=== PATIENT | female | born 1980 | race Caucasian/White ===

== ENCOUNTER 2019-12-17 07:29 | Day surgery (SDC) | payer OTHER, SELFPAY ==
[2019-12-10 09:49] VITALS: BMI 29.9
--- NOTE | 2019-12-11 08:36 | HO.ANESPROP2 ---
Documented by User: Anastasiya Cerna 12/11/19 08:38 HPI - Anesthesia Eval Consult details Narrative: 39yo F for Colonoscopy PMFSH Past Medical History Medical History Asthma Back pain Irritable bowel syndrome Peptic ulcer PONV (postoperative nausea and vomiting) Surgical History Surgical History H/O: hemorrhoidectomy Hx of excision of mass [place] teeth removed Social History Social History Smoking Status: Never smoker Use of substances other than those prescribed or required for medical reasons: Yes Substance Use Frequency: Occasionally Advance Directives Information Provided: No Recently lost weight without trying: No Meds Allergies Allergy/AdvReac Type Severity Reaction Status Date / Time amoxicillin [Amoxicillin] Allergy Severe anaphylaxis Verified 12/10/19 09:59 Penicillins Allergy Severe anaphylaxis Verified 12/10/19 09:59 Sulfa (Sulfonamide Allergy Severe Hives Verified 12/10/19 09:59 Antibiotics) codeine [Codeine] Allergy Intermediate rash Verified 12/10/19 09:59 Home Medications Medication Instructions Recorded Confirmed Type dicyclomine 20 mg PO QID 12/10/19 12/10/19 History escitalopram oxalate [Lexapro] 5 mg PO DAILY 12/10/19 12/10/19 History methylcellulose (laxative) 1,000 mg PO BID 12/10/19 12/10/19 History [Citrucel] Exam Exam Date and Time: December 11, 2019 0837 Height,Weight and Vital Signs: Height 5 ft 5 in Weight 81.647 kg Pertinent Lab Results Pertinent Lab Results: Laboratory Tests 09/15/19 09/15/19 18:11 18:11 WBC 10.0 Hgb 12.2 Hct 37.3 Plt Count 203 Sodium 138 Potassium 3.7 Chloride 103 Bicarbonate 24 BUN 12 Creatinine 0.73 Est GFR (Non-Af Amer) > 60 Total Bilirubin 0.4 Direct Bilirubin < 0.2 AST 13 ALT 9 Alkaline Phosphatase 71 Assessment and Plan Assessment Anesthesia Assessment: Chart Reviewed Documented by User: Elliott Menon 12/17/19 08:43 PMFSH Past Medical History Medical History Asthma Back pain Irritable bowel syndrome Peptic ulcer PONV (postoperative nausea and vomiting) Surgical History Surgical History H/O: hemorrhoidectomy Hx of excision of mass [place] teeth removed Social History Social History Smoking Status: Never smoker Use of substances other than those prescribed or required for medical reasons: Yes Substance Use Frequency: Occasionally Advance Directives Information Provided: No Recently lost weight without trying: No Meds Allergies Allergy/AdvReac Type Severity Reaction Status Date / Time amoxicillin [Amoxicillin] Allergy Severe anaphylaxis Verified 12/10/19 09:59 Penicillins Allergy Severe anaphylaxis Verified 12/10/19 09:59 Sulfa (Sulfonamide Allergy Severe Hives Verified 12/10/19 09:59 Antibiotics) codeine [Codeine] Allergy Intermediate rash Verified 12/10/19 09:59 Home Medications Medication Instructions Recorded Confirmed Type dicyclomine 20 mg PO QID 12/10/19 12/10/19 History escitalopram oxalate [Lexapro] 5 mg PO DAILY 12/10/19 12/10/19 History methylcellulose (laxative) 1,000 mg PO BID 12/10/19 12/10/19 History [Citrucel] Exam Airway Mallampati Class: II TM Dist: >3cm Neck ROM: Full Heart: [id number] Lungs: cta b/l Assessment and Plan Assessment Anesthesia Assessment: Anesthesia Plan Discussed, PAT Visit and Chart Reviewed Final Anesthetic Review NPO: Yes ASA Class: II Final Preanesthetic Review: No Changes in Pt Med Stat, Meds/Allgs Chart Reviewed, Consent Obtained/Reviewed and Anes Risks/Benef Reviewed Patient Risk: Low Procedure Risk: Low Anesthetic Plan Anesthetic Plan: MAC: Disposition: Standard PACU, Extended PACU, Inp. Admit - Standard Bed and Inp. Admit - ICU
[2019-12-17 08:50] VITALS: BP 121/66; PULSE 49; RESP 20; TEMP 36.6
[2019-12-17] MEDS: Lactated Ringers 1,000 ML 999 ML IVCONT (09:50)
--- NOTE | 2019-12-17 09:50 | MHC.SHP ---
Pre-Procedural Eval Section A The patient is an INPATIENT: No The History & Physical has been completed within 30 days and I have reviewed it.: No Section B Chief Complaint: Diarrhea, Mixed IBS Details of Present Illness: Diarrrhea, urgency--colon cancer screening Relevant Family History (Specify if Yes): No Relevant Social History: None Present Medications: see Short Stay Collaborative assessment Medical History: Significant History (Anxiety) History of Previous Operations: No relevant previous surgery Allergies: Allergies Allergy/AdvReac Type Severity Reaction Status Date / Time amoxicillin [Amoxicillin] Allergy Severe anaphylaxis Verified 12/10/19 09:59 Penicillins Allergy Severe anaphylaxis Verified 12/10/19 09:59 Sulfa (Sulfonamide Allergy Severe Hives Verified 12/10/19 09:59 Antibiotics) codeine [Codeine] Allergy Intermediate rash Verified 12/10/19 09:59 Review of Systems Sugical H&P ROS: Negative: Constitution, Cardiovascular and Respiratory (has asthma--under control) and Yes, Specify: Psychiatric (mood variability) and Gastrointestinal (diarrhea) Exam Surgical H&P Exam: Normal: Heart, Normal: Lungs, Normal: Extremities, Normal: Abdomen and Normal: Skin and Not Evaluated: HEENT Plan Diagnosis/Plan: Unchanged Patient has been examined and remains a candidate for the planned procedure--YES
--- NOTE | 2019-12-17 10:23 | PM.PROC ---
Brief Operative Note Date of procedure: 12/17/19 Pre-op diagnosis: Diarrhea, urgency; Colon cancer screening Post-op diagnosis: other (Normal Exam, 1+ Internal hemorrhoid in 1 quadrant) Procedure: COLONSCOPY WITH MULTIPLE BIOPSIES EXAM TO THE TERMINAL ILEUM Anesthesia: MAC Surgeon: Inna Harding Estimated blood loss (mL): 5 Pathology: other (TI; RIGHT COLON, LEFT COLON, RECTOSIGMOID) Condition: stable Disposition: PACU
[2019-12-17 10:24] VITALS: BP 92/51; PULSE 49; RESP 12; TEMP 36.4; O2SAT 98
[2019-12-17 10:39] VITALS: BP 117/67; PULSE 47; RESP 20; TEMP 36.7; O2SAT 99
--- NOTE | 2019-12-19 08:28 | OP_ITS ---
SURGEON: Inna Harding MD PROCEDURE PERFORMED: Colonoscopy with multiple biopsies. ESTIMATED BLOOD LOSS: Minimal. COMPLICATIONS: No complications. ANESTHESIA: Monitored. ANESTHESIOLOGIST: Demetra Pimentel CRNA ASSISTANTS: No hotel assistant general manager. SPECIMENS: Removed, terminal ileal biopsy, right colon, left colon, rectosigmoid biopsies. PREOPERATIVE DIAGNOSES: Diarrhea/urgency, screening colonoscopy. POSTOPERATIVE DIAGNOSES: 1. 1+ internal hemorrhoids, mid quadrant between 2:00 and 3:00 p.m. using clock radius. 2. History of urgency/diarrhea. CNA CAREGIVER: Dr. Harding. FINDINGS: Digital rectal exam revealed sphincter tone to be adequate. Video colonoscope was introduced without difficulty. It was navigated through rectosigmoid, sigmoid, descending, transverse, ascending colon down into the cecum. Appendiceal orifice was seen. Ileocecal valve was seen. I was actually able to intubate the distal ileum by 6-8 cm. Normal villous appearance. Terminal ileal biopsies were obtained. The prep was good to excellent throughout. Due to the questionable history of diarrhea/urgency, additional biopsies were obtained in the right colon, left colon, rectosigmoid. Slow rotational views on withdrawal of the scope. No mucosal lesions were appreciated. Anorectal verge was clear. There was 1 quadrant using the clock face dial as a guide in the 2 to the 3 o'clock position of internal hemorrhoid. No excoriation. CURRENT PLAN: Repeat asymptomatic screening in this patient should be done considered in 5 years. She will be seen back in our office to manage her urgency/diarrhea, which may indeed be IBS-diarrhea. GRAFT OR IMPLANTS: No grafts or implants. CONDITION: Postprocedure, stable. Inna Harding MD MEN/MODL / [id number] DANG
== END 2019-12-17 11:27 | disposition home or self-care (01) ==
PROVIDERS: PCP Internal Medicine; Visit Provider Internal Medicine Gastroenterology
PROC: 0DJD8ZZ Inspection of Lower Intestinal Tract, Via Natural or Artificial Opening Endoscopic (ICD-10-PCS; CPT 45378; principal; 2019-12-17 09:10)
DX: Z12.11 Encounter for screening for malignant neoplasm of colon (principal); K58.2 Mixed irritable bowel syndrome; R15.2 Fecal urgency; K64.8 Other hemorrhoids; Z87.11 Personal history of peptic ulcer disease; J45.909 Unspecified asthma, uncomplicated; Z79.899 Other long term (current) drug therapy; Z88.0 Allergy status to penicillin; Z88.1 Allergy status to other antibiotic agents; Z88.2 Allergy status to sulfonamides; Z88.8 Allergy status to other drugs, medicaments and biological substances
CPT/HCPCS: 45380; 88305

== ENCOUNTER → 2019-12-26 16:00 | Outpatient (BNVA) | payer OTHER, SELFPAY | PROVIDERS: PCP Internal Medicine; Visit Provider Anesthesiology | DX: Z76.89 Persons encountering health services in other specified circumstances (principal) ==

== ENCOUNTER → 2020-01-13 09:50 | Outpatient (BNVA) | payer OTHER, SELFPAY | PROVIDERS: PCP Internal Medicine; Referring Provider Internal Medicine; Visit Provider Internal Medicine Gastroenterology | DX: Z76.89 Persons encountering health services in other specified circumstances (principal) ==

== ENCOUNTER → 2020-01-27 13:50 | Outpatient (BNVA) | payer OTHER, SELFPAY | PROVIDERS: PCP Internal Medicine; Visit Provider Surgery | DX: K64.4 Residual hemorrhoidal skin tags (principal); K58.2 Mixed irritable bowel syndrome | CPT/HCPCS: 46600 ==

== ENCOUNTER → 2020-03-30 08:43 | Outpatient (BNVA) | payer OTHER, SELFPAY | PROVIDERS: PCP Internal Medicine; Visit Provider Internal Medicine Gastroenterology ==

== ENCOUNTER 2020-04-22 17:06 | Emergency (ER) | payer OTHER, SELFPAY ==
--- NOTE | ~2020-04-22 | US_ITS ---
EXAMINATION: ULTRASOUND PELVIC COMPLETE WITH DOPPLER CLINICAL INFORMATION: Left pelvic pain, ovarian cyst seen on CT scan. COMPARISON: CT scan of the abdomen and pelvis dated 04/23/2020. TECHNIQUE: Multiple 2-D grayscale and Doppler transabdominal and transvaginal pelvic ultrasound images were obtained. FINDINGS: Uterus: Anteverted/anteflexed, 7.7 x 4.4 x 4.5 cm. Myometrial echotexture is homogeneous except for a heterogeneous echogenic intramural focus in the right fundus measuring 0.9 x 0.9 x 0.7 cm. Color Doppler showed no abnormal vascular flow. Endometrial stripe measures up to 0.9 cm without focal abnormality. Right ovary: 2.0 x 1.8 x 1.4 cm with a volume of 2.6 cm. Left ovary: 3.3 x 2.7 x 2.0 cm with a volume of 9.3 cm. A cyst with peripheral vascularity measures 2.2 x 1.4 x 1.5 cm. Mild adjacent adnexal fluid is seen. Urinary bladder: Minimally distended without focal abnormality. US/US pelvic complete IMPRESSION: 1. Left ovarian cyst demonstrates features most consistent with a physiologic/corpus luteum cyst. Mild adjacent left adnexal fluid is likely associated with this finding a physiologic as well. No significant right ovarian abnormality. 2. Echogenic intramural focus in the right fundus is nonspecific, but could represent a small fibroid. No other significant myometrial/endometrial abnormality is seen. This could be monitored for change with a repeat transvaginal pelvic ultrasound in 3-6 months.
--- NOTE | ~2020-04-22 | US_ITS ---
EXAMINATION: ULTRASOUND PELVIC COMPLETE WITH DOPPLER CLINICAL INFORMATION: Left pelvic pain, ovarian cyst seen on CT scan. COMPARISON: CT scan of the abdomen and pelvis dated 04/23/2020. TECHNIQUE: Multiple 2-D grayscale and Doppler transabdominal and transvaginal pelvic ultrasound images were obtained. FINDINGS: Uterus: Anteverted/anteflexed, 7.7 x 4.4 x 4.5 cm. Myometrial echotexture is homogeneous except for a heterogeneous echogenic intramural focus in the right fundus measuring 0.9 x 0.9 x 0.7 cm. Color Doppler showed no abnormal vascular flow. Endometrial stripe measures up to 0.9 cm without focal abnormality. Right ovary: 2.0 x 1.8 x 1.4 cm with a volume of 2.6 cm. Left ovary: 3.3 x 2.7 x 2.0 cm with a volume of 9.3 cm. A cyst with peripheral vascularity measures 2.2 x 1.4 x 1.5 cm. Mild adjacent adnexal fluid is seen. Urinary bladder: Minimally distended without focal abnormality. US/US transvaginal IMPRESSION: 1. Left ovarian cyst demonstrates features most consistent with a physiologic/corpus luteum cyst. Mild adjacent left adnexal fluid is likely associated with this finding a physiologic as well. No significant right ovarian abnormality. 2. Echogenic intramural focus in the right fundus is nonspecific, but could represent a small fibroid. No other significant myometrial/endometrial abnormality is seen. This could be monitored for change with a repeat transvaginal pelvic ultrasound in 3-6 months.
--- NOTE | ~2020-04-22 | CT_ITS ---
EXAMINATION: CT ABDOMEN AND PELVIS WITH CONTRAST CLINICAL INFORMATION: Pain. Constipation. Rule out diverticulitis. COMPARISON: 08/22/2019 TECHNIQUE: Multidetector volumetric images were obtained from the superior aspect of the liver through the pubic symphysis following administration 85 mL of Omnipaque 350 intravenous contrast. Sagittal and coronal reformatted images were obtained on the technologist's workstation. Oral contrast: No This CT examination was performed using dose optimization techniques as appropriate, variously including the following: *Automated exposure control *Adjustment of mA and/or kV according to patient size (this includes techniques or standardized protocols for targeted exams where dose is matched to indication/reason for exam; i.e. extremities or head) *Use of iterative reconstruction technique DLP: 718 mGy-cm FINDINGS: LUNG BASES: The visualized lung bases are unremarkable. LIVER, GALLBLADDER, AND BILIARY TREE: The liver is normal in size, shape, and attenuation. No focal hepatic lesion or biliary ductal dilatation is present. The gallbladder is unremarkable with no evidence of radiopaque gallstones, gallbladder wall thickening, or obvious pericholecystic inflammatory changes. PANCREAS: Unremarkable. SPLEEN: Normal size spleen. There is a 3.7 cm cyst at the dome of the spleen. ADRENAL GLANDS: Unremarkable. KIDNEYS AND URETERS: The kidneys are normal in size, shape, and attenuation. No hydronephrosis, hydroureter, or calculi seen. No perinephric stranding. BLADDER: Unremarkable. GASTROINTESTINAL TRACT: The stomach is unremarkable. Normal caliber small bowel. No obstruction. Normal appendix. No colonic wall thickening or inflammatory changes. No significant diverticulosis. No free air. Small amount of pelvic free fluid. ABDOMINAL WALL: No significant hernia is appreciated. LYMPH NODES: Normal. VASCULAR: Unremarkable. PELVIC VISCERA: Anteverted uterus. Peripherally enhancing left ovarian follicle measuring 2.4 cm. Small amount of adjacent free fluid. OSSEOUS STRUCTURES: No acute or suspicious osseous abnormality. Mild degenerative changes of the spine. CT/CT abdomen pelvis w con IMPRESSION: Small amount of pelvic free fluid adjacent to a peripherally enhancing left ovarian follicle. This could represent a hemorrhagic cyst. No significant colonic diverticulosis.
--- NOTE | ~2020-04-22 | US_ITS ---
EXAMINATION: ULTRASOUND PELVIC COMPLETE WITH DOPPLER CLINICAL INFORMATION: Left pelvic pain, ovarian cyst seen on CT scan. COMPARISON: CT scan of the abdomen and pelvis dated 04/23/2020. TECHNIQUE: Multiple 2-D grayscale and Doppler transabdominal and transvaginal pelvic ultrasound images were obtained. FINDINGS: Uterus: Anteverted/anteflexed, 7.7 x 4.4 x 4.5 cm. Myometrial echotexture is homogeneous except for a heterogeneous echogenic intramural focus in the right fundus measuring 0.9 x 0.9 x 0.7 cm. Color Doppler showed no abnormal vascular flow. Endometrial stripe measures up to 0.9 cm without focal abnormality. Right ovary: 2.0 x 1.8 x 1.4 cm with a volume of 2.6 cm. Left ovary: 3.3 x 2.7 x 2.0 cm with a volume of 9.3 cm. A cyst with peripheral vascularity measures 2.2 x 1.4 x 1.5 cm. Mild adjacent adnexal fluid is seen. Urinary bladder: Minimally distended without focal abnormality. US/US pelvic ovarian doppler IMPRESSION: 1. Left ovarian cyst demonstrates features most consistent with a physiologic/corpus luteum cyst. Mild adjacent left adnexal fluid is likely associated with this finding a physiologic as well. No significant right ovarian abnormality. 2. Echogenic intramural focus in the right fundus is nonspecific, but could represent a small fibroid. No other significant myometrial/endometrial abnormality is seen. This could be monitored for change with a repeat transvaginal pelvic ultrasound in 3-6 months.
[2020-04-22 17:36] VITALS: BP 151/85; PULSE 69; RESP 22; TEMP 37.1; O2SAT 98
[2020-04-22 22:07] VITALS: BP 139/95; PULSE 74; RESP 18; TEMP 36.7; O2SAT 98; BMI 30.7
[2020-04-23] VITALS (8 sets, daily range): BP systolic 108–137; BP diastolic 61–77; PULSE 54–72; RESP 14–20; TEMP 36.5; O2SAT 98–100
[2020-04-23 00:31] LABS: MANUAL DIFF FLAG NO
[2020-04-23 00:32] LABS: Basophils Percent Auto 0.2 % (0-2); Eosinophils Absolute Auto 0.1 X10*3/uL (0.0-0.4); Eosinophils Percent Auto 0.4 % (0-4); Hematocrit 39.1 % (37-47); Hemoglobin 13.5 g/dl (12.0-16.0); Imm Gran Abs Auto 0.06 X10*3/uL (0.00-0.03); Imm Gran Pct Auto 0.3 % (0.0-0.4); Lymphocytes Absolute Auto 3.8 X10*3/uL (1.2-4.9); Lymphocytes Percent Auto 19.6 % (20-40); Mean Corpuscular HGB Conc 34.5 g/dl (31.0-35.0); Mean Corpuscular Volume 95.6 fL (80-98); Mean Platelet Volume 9.6 fL (9.4-12.3); Monocytes Absolute Auto 0.9 X10*3/uL (0.1-1.2); Monocytes Percent Auto 4.7 % (2-11); Neutrophils Absolute Auto 14.5 X10*3/uL (2.0-8.3); Neutrophils Percent Auto 74.8 % (45-73); Platelet Count 226 X10*3/uL (160-400); Red Blood Count 4.09 X10*6/uL (4.20-5.50); Red Cell Distribution Width 12.6 % (11.0-16.0); White Blood Count 19.4 X10*3/uL (4.8-10.8)
[2020-04-23 01:00] LABS: Alanine Aminotransferase 12 U/L (0-31); Albumin Level 4.6 g/dL (3.5-5.0); Alkaline Phosphatase 72 U/L (39-117); Anion Gap 16 (12-20); Aspartate Amino Transferase 17 U/L (5-31); Bilirubin Total 0.6 mg/dL (0.0-1.0); Blood Urea Nitrogen 13 mg/dL (9-16); Calcium 8.9 mg/dL (8.4-10.2); Carbon Dioxide 18 mmol/L (22-29); Chloride 107 mmol/L (96-108); Creatinine Clr Calc Pharmacy 114.8; Estimated Glomerular Filt Rate > 60; Glucose Random 87 mg/dL (60-115); Potassium 3.8 mmol/L (3.3-5.1); Sodium 137 mmol/L (135-145); Total Protein 7.1 g/dL (6.5-8.0)
[2020-04-23 03:09] LABS: Appearance Urine CLEAR; Color Urine YELLOW; Glucose Urine UA NEG (NEG); Leukocyte Esterase Urine NEG (NEG); Nitrite Urine NEG (NEG); PH 5.5 (5.0-8.0); UACC Culture Trigger NO; Urine Blood NEG (NEG); Urine Ketones 40 MG/DL (NEG); Urine Protein NEG (NEG-TRACE)
--- NOTE | 2020-04-23 04:38 | PC.NURSE ---
MD REQUESTED FEMALE BENEFITS PROCESSOR FOR RECTAL EXAM. PERFORMED OCCULT BLOOD STOOL SAMPLE TEST AT BEDSIDE. PT AMBULATORY TO BATHROOM WITH STEADY GAIT FOLLOWING.
--- NOTE | 2020-04-23 04:41 | ED_ITS ---
HPI - General Adult General Chief complaint: Abdominal Pain Stated complaint: ABD PAIN, CONSTIPATION Time Seen by Provider: 04/23/20 04:09 Source: patient Mode of arrival: ambulatory Limitations: no limitations History of Present Illness HPI narrative: 39-year-old female who presents emergency department for evaluat ion of left upper quadrant pain which began yesterday. The patient states that she was at work when she developed abdominal pain at around 1:00 p.m.. She states the pain came on gradually and got progressively worse to the point where she had to leave work at 2:30 p.m.. She points to her left upper quadrant when asked to localize the pain. She describes as an intermittent cramping pain with which varies in intensity from 7/10 to 9/10. At the time of evaluation the pain was 7/10. She had associated nausea with no vomiting until she came to the emergency department and she vomited multiple times. She denied fever or chills. The patient states that she had a hemorrhoidectomy in August of 2019 and since that time she had constant diarrhea. She was diagnosed with IBS and started on dicyclomine with no relief of her diarrhea. Her doctor started her on Lotronex recently and she states that her diarrhea improved and she now is constipated. She states that her last bowel movement was 6 days prior. Related Data Home Medications Medication Instructions Recorded Confirmed methylcellulose (laxative) 1,000 mg PO BID 12/10/19 03/30/20 [Citrucel] Previous Rx's Medication Instructions Recorded dicyclomine 20 mg tablet 20 mg PO QID 30 Days #120 tab 01/13/20 escitalopram oxalate 5 mg tablet 5 mg PO DAILY #30 tab 02/03/20 ibuprofen 800 mg tablet 800 mg PO Q8H PRN 30 Days #90 tab 03/04/20 alosetron 0.5 mg tablet 0.5 mg PO BID 30 Days #60 tab 03/30/20 morphine 15 mg PO Q4-6H PRN #14 tab 04/23/20 ondansetron 4 mg PO Q6-8H PRN #14 tab 04/23/20 Allergies Allergy/AdvReac Type Severity Reaction Status Date / Time amoxicillin [Amoxicillin] Allergy Severe anaphylaxis Verified 03/04/20 17:44 Penicillins Allergy Severe anaphylaxis Verified 03/04/20 17:44 Sulfa (Sulfonamide Allergy Severe Hives Verified 03/04/20 17:44 Antibiotics) codeine [Codeine] Allergy Intermediate rash Verified 03/04/20 17:44 Review of Systems Review of Systems: Yes all other systems are reviewed and are negative Neurologic: Reports Abnormal speech present [facility] Past Medical History [facility] Narrative: The patient denies tobacco and alcohol use. She states that she does smoke marijuana. Medical History Asthma Back pain Coccydynia COVID-19 (~03/23/20) External hemorrhoids with complication Irritable bowel syndrome Irritable bowel syndrome with diarrhea Obese Peptic ulcer PONV (postoperative nausea and vomiting) Traumatic coccydynia Surgical History H/O: hemorrhoidectomy History of colonoscopy Hx of excision of mass [place] teeth removed Family History Family History Father Alive and well Mother Family history of high blood pressure Social History Social History Alcohol intake: former Smoking Status: Never smoker Use of substances other than those prescribed or required for medical reasons: No Substance Use Type: Marijuana Advance Directives: No Physical Exam Vital Signs: Vital Signs: Last Vital Signs Temp 97.7 F 04/23/20 00:18 Pulse 58 04/23/20 06:08 Resp 16 04/23/20 06:08 BP 108/63 04/23/20 06:08 Pulse Ox 98 04/23/20 06:08 Body Mass Index 30.7 Const: General: other (Awake, alert, female, very pleasant and cooperative, no distress ) Orientation/consciousness: oriented to person and oriented to place Limitations: no limitations HENMT: Head: Yes normal to inspection, Yes normocephalic and Yes atraumatic Ears: external ears normal General nose exam: Normal external nose present Face and sinus: Yes normal facial exam Mouth: Normal oral and palatal mucosa present Throat: Yes posterior oropharynx normal Eyes: Periorbital: periorbital findings normal Eyelids: Yes eyelids normal Conjunctivae: conjunctivae normal Sclerae: sclerae normal Corneas: corneas normal Pupils: Equal, round and reactive pupils present Direct Ophthalmoscopy: normal light reflex Neck: Neck: Yes full ROM, Yes no lymphadenopathy, Yes no meningeal signs, Yes trachea midline and Yes supple Chest: Chest palpation & inspection: normal inspection of the chest and normal palpation of entire chest wall Resp: Effort & Inspection: normal respiratory effort and able to speak in complete sentences Auscultation: clear to auscultation bilaterally Cardio: Rate: regular rate Rhythm: regular rhythm Heart sounds: S1 normal heart sound present, S2 normal heart sound present and no murmurs GI: Inspection: Yes normal to inspection Palpation (GI): Soft to palpation, Tenderness to palpation present (GI) in the LUQ (Moderate), no guarding, not rigid and No hepatosplenomegaly present Rectal Exam - Female: visual inspection normal, normal sphincter tone, heme positive stool (Brown stool, Hemoccult positive) and other (Very tender with insertion of the digit, no impaction) : General: Yes no CVA tenderness Back/Spine/Pelvis: Back: no CVA tenderness Cervical Spine: normal cervical lordosis Thoracic/Lumbar Spine: thoracic and lumbar spine normal to inspection Skin: Lesions: no lesions Rashes: no rashes Wounds: no wounds Neuro: General: oriented to person, oriented to place and no meningeal signs Cranial nerves: Yes Equal, round and reactive pupils present Cognition (Neuro): normal cognition Speech: Abnormal speech present Motor exam (neuro): 5/5 motor strength present throughout Extrem: General: Yes normal to inspection and Yes full ROM Psych: Appearance: well kempt Mental Status: mental status grossly normal Speech and movement: Normal speech and movement present Affect: normal affect Attitude: cooperative Thought process: Normal thought process present Thought content: Normal thought content present Course Course Course Narrative: 39-year-old female with a history of IBS who normally has diarrhea, recently started on Lotronex and now has constipation x6 days. She presented with left upper quadrant pain which started yesterday afternoon and has been persistent. Examination did reveal left upper quadrant tenderness, pain on rectal exam with no impaction, stool which was Hemoccult positive. [place] [address] otherwise was unremarkable. I do not have a clear etiology for the patient's pain therefore I did order a CT scan of the abdomen pelvis with IV contrast. The patient was ordered to get morphine 4 mg IV for her pain, Zofran 4 mg IV for her nausea and vomiting and normal saline x1 L. 0731: Patient's laboratory evaluation did reveal an elevated white blood cell count of 19,400, urinalysis was negative. The patient did improvement with IV morphine but required a 2nd dose of morphine 4 mg IV. The patient's CT scan revealed possible left 2.4 cm hemorrhagic ovarian cyst. After getting this finding, I did order a Doppler ultrasound to rule out the possibility a torsion as the cause of her pain. I did sign this patient out to my colleague, Dr. Flynn at [facility]. If there is no torsion, the patient can be discharged home and I did prescribe morphine IR 15 mg every 4-6 hours as needed for pain and a Zofran ODT 4 mg every 8 hours as needed for nausea. Medical Decision Making Lab Data Result diagrams: 04/23/20 00:23 04/23/20 00:23 Labs: Lab Results 04/23/20 04/23/20 04/23/20 Range/Units 00:23 00:23 00:23 WBC 19.4 H (4.8-10.8) X10*3/uL RBC 4.09 L (4.20-5.50) X10*6/uL Hgb 13.5 (12.0-16.0) g/dl Hct 39.1 (37-47) % MCV 95.6 (80-98) fL MCH 33.0 (27.0-33.0) pg MCHC 34.5 (31.0-35.0) g/dl RDW 12.6 (11.0-16.0) % Plt Count 226 (160-400) X10*3/uL MPV 9.6 (9.4-12.3) fL Immature Gran % (Auto) 0.3 (0.0-0.4) % Neut % (Auto) 74.8 H (45-73) % Lymph % (Auto) 19.6 L (20-40) % Tillman % (Auto) 4.7 (2-11) % Eos % (Auto) 0.4 (0-4) % Baso % (Auto) 0.2 (0-2) % Lymph # (Auto) 3.8 (1.2-4.9) X10*3/uL Tillman # (Auto) 0.9 (0.1-1.2) X10*3/uL Eos # (Auto) 0.1 (0.0-0.4) X10*3/uL Baso # (Auto) 0.0 (0.0-0.2) X10*3/uL Abs Immat Gran (auto) 0.06 H (0.00-0.03) X10*3/uL Absolute Neuts (auto) 14.5 H (2.0-8.3) X10*3/uL Absolute Nucleated RBC 0.000 (0.0-0.012) X10*3/uL Nucleated RBC % (auto) 0.0 (0.0-0.2) /100WBC Hold Blue Top SEE NOTE Sodium 137 (135-145) mmol/L Potassium 3.8 (3.3-5.1) mmol/L Chloride 107 (96-108) mmol/L Carbon Dioxide 18 L (22-29) mmol/L Anion Gap 16 (12-20) BUN 13 (9-16) mg/dL Creatinine 0.69 (0.5-1.4) mg/dL Estim Creat Clear Calc 114.8 Estimated GFR > 60 Random Glucose 87 (60-115) mg/dL Calcium 8.9 (8.4-10.2) mg/dL Total Bilirubin 0.6 (0.0-1.0) mg/dL AST 17 (5-31) U/L ALT 12 (0-31) U/L Alkaline Phosphatase 72 (39-117) U/L Total Protein 7.1 (6.5-8.0) g/dL Albumin 4.6 (3.5-5.0) g/dL Lipase 14 (8-78) U/L Urine Color Urine Appearance Urine pH (5.0-8.0) Ur Specific Hulett (1.005-1.025) Urine Protein (NEG-TRACE) MG/DL Urine Glucose (UA) (NEG) MG/DL Urine Ketones (NEG) MG/DL Urine Blood (NEG) Urine Nitrite (NEG) Ur Leukocyte Esterase (NEG) 04/23/20 Range/Units 02:41 WBC (4.8-10.8) X10*3/uL RBC (4.20-5.50) X10*6/uL Hgb (12.0-16.0) g/dl Hct (37-47) % MCV (80-98) fL MCH (27.0-33.0) pg MCHC (31.0-35.0) g/dl RDW (11.0-16.0) % Plt Count (160-400) X10*3/uL MPV (9.4-12.3) fL Immature Gran % (Auto) (0.0-0.4) % Neut % (Auto) (45-73) % Lymph % (Auto) (20-40) % Tillman % (Auto) (2-11) % Eos % (Auto) (0-4) % Baso % (Auto) (0-2) % Lymph # (Auto) (1.2-4.9) X10*3/uL Tillman # (Auto) (0.1-1.2) X10*3/uL Eos # (Auto) (0.0-0.4) X10*3/uL Baso # (Auto) (0.0-0.2) X10*3/uL Abs Immat Gran (auto) (0.00-0.03) X10*3/uL Absolute Neuts (auto) (2.0-8.3) X10*3/uL Absolute Nucleated RBC (0.0-0.012) X10*3/uL Nucleated RBC % (auto) (0.0-0.2) /100WBC Hold Blue Top Sodium (135-145) mmol/L Potassium (3.3-5.1) mmol/L Chloride (96-108) mmol/L Carbon Dioxide (22-29) mmol/L Anion Gap (12-20) BUN (9-16) mg/dL Creatinine (0.5-1.4) mg/dL Estim Creat Clear Calc Estimated GFR Random Glucose (60-115) mg/dL Calcium (8.4-10.2) mg/dL Total Bilirubin (0.0-1.0) mg/dL AST (5-31) U/L ALT (0-31) U/L Alkaline Phosphatase (39-117) U/L Total Protein (6.5-8.0) g/dL Albumin (3.5-5.0) g/dL Lipase (8-78) U/L Urine Color YELLOW Urine Appearance CLEAR Urine pH 5.5 (5.0-8.0) Ur Specific Hulett 1.020 (1.005-1.025) Urine Protein NEG (NEG-TRACE) MG/DL Urine Glucose (UA) NEG (NEG) MG/DL Urine Ketones 40 (NEG) MG/DL Urine Blood NEG (NEG) Urine Nitrite NEG (NEG) Ur Leukocyte Esterase NEG (NEG) Discharge Plan Discharge Clinical Impression: Hemorrhagic cyst of left ovary Constipation Qualifiers: Constipation type: unspecified constipation type Qualified Code(s): K59.00 - Constipation, unspecified Nausea & vomiting Qualifiers: Vomiting type: unspecified Vomiting Intractability: non-intractable Qualified Code(s): R11.2 - Nausea with vomiting, unspecified Patient Disposition: Home, Self-Care Instructions: Ovarian Cyst (ED) Additional Instructions: Take Tylenol (acetaminophen) 500 mg pills, 2 pills every 4 to 6 hours as needed for pain. For pain not relieved by Tylenol, take morphine 15 mg pills, 1 pill every 4-6 hours as needed for pain. This medication will make you sleepy, do not drive or work while taking this medication. This medication can be addicting. If you are concerned about addiction you can ask for less pills from the pharmacist or not get the prescription filled. Take Zofran (ondansetron) ODT 4 mg, 1 pill dissolved in mouth every 8 hours as needed for nausea and vomiting. Follow-up with your doctor in 2 days. Please return to the emergency department if your symptoms get worse or if you develop any symptoms that are concerning to you. Prescriptions: New morphine 15 mg tablet 15 mg PO Q4-6H PRN (Reason: pain) Qty: 14 RF: 0 ondansetron 4 mg tablet,disintegrating 4 mg PO Q6-8H PRN (Reason: nausea and vomiting) Qty: 14 RF: 0 No Action escitalopram oxalate 5 mg tablet 5 mg PO DAILY Qty: 30 RF: 6 Citrucel 500 mg Tablet 1,000 mg PO BID RF: 0 ibuprofen 800 mg tablet 800 mg PO Q8H PRN (Reason: pain) 30 Days Qty: 90 RF: 1 dicyclomine 20 mg tablet 20 mg PO QID 30 Days Qty: 120 RF: 4 alosetron [Lotronex] 0.5 mg tablet 0.5 mg PO BID 30 Days Qty: 60 RF: 2
[2020-04-23] MEDS: Morphine Sulfate 4 MG/ML CARTRIDGE IVPUSH ×2 (04:50→07:31)
[2020-04-23] MEDS: 0.9 % Sodium Chloride 1,000 ML 999 ML IV (04:50)
[2020-04-23] MEDS: ondansetron HCL 4 MG/2 ML VIAL IVPUSH (04:50)
[2020-04-23 05:14] LABS: Lipase 14 U/L (8-78)
[2020-04-23] MEDS: iohexoL 350 MG/ML 100 ML INFUS..BTL 85 ML IV (05:26)
--- NOTE | 2020-04-23 07:33 | PC.NURSE ---
Plan for ultrasound r/o torsion and Morphine for pain management 07/13 at this time. Pt appears comfortable at this time.
[2020-04-23] MEDS: Morphine Sulfate Immed Release 15 MG TABLET PO (09:33)
== END 2020-04-23 10:10 | disposition home or self-care (01) ==
PROVIDERS: Internal Medicine; Emergency Provider Emergency Medicine Emergency Medical Services; PCP Internal Medicine
DX: N83.202 Unspecified ovarian cyst, left side (principal); K59.00 Constipation, unspecified; R11.2 Nausea with vomiting, unspecified; Z86.16 Personal history of COVID-19
CPT/HCPCS: 36415; 74177; 76830; 76856; 80053; 81003; 83690; 85025; 93975; 96361; 96374; 96375; 96376; 99284; 99285; J2270; J2405; Q9967

== ENCOUNTER → 2020-04-27 14:41 | Outpatient (BNVA) | payer OTHER, SELFPAY | PROVIDERS: PCP Internal Medicine; Visit Provider Internal Medicine Gastroenterology ==

== ENCOUNTER 2020-05-04 08:19 | Outpatient (REF) | payer OTHER, SELFPAY ==
--- NOTE | ~2020-05-04 | MM_ITS ---
EXAMINATION: MM SCREENING DIGITAL BREAST TOMOSYNTHESIS, BILATERAL CLINICAL INFORMATION: Screening. Asymptomatic. The lifetime risk of breast cancer based on the Tyrer-Cuzick Model is 13%. COMPARISON: Mammography: 04/29/2019 TECHNIQUE: Digital breast tomosynthesis is performed in both the craniocaudal and mediolateral oblique views along with computer-aided detection (CAD). Synthesized 2D images are generated from the tomosynthesis. FINDINGS: There are scattered areas of fibroglandular density (ACR BI-RADS breast composition Category b). There are no significant masses, abnormal calcifications, or other abnormalities. Breast tissue composition borders on predominantly fatty. Background stromal markings are stable. No significant changes. MM/MM tomosynthesis screening BI IMPRESSION: No mammographic evidence of malignancy. ASSESSMENT: BI-RADS 1: Negative RECOMMENDATION: Routine annual mammography screening. This patient's information was entered into a reminder system with a target due date for their next mammogram.
[2020-05-04 10:23] LABS: Alanine Aminotransferase 12 U/L (0-31); Albumin Level 4.5 g/dL (3.5-5.0); Alkaline Phosphatase 76 U/L (39-117); Anion Gap 11 (12-20); Aspartate Amino Transferase 15 U/L (5-31); Bilirubin Total 0.2 mg/dL (0.0-1.0); Blood Urea Nitrogen 15 mg/dL (9-16); Calcium 8.7 mg/dL (8.4-10.2); Carbon Dioxide 27 mmol/L (22-29); Chloride 105 mmol/L (96-108); Cholesterol 203 mg/dL; Estimated Glomerular Filt Rate > 60; Glucose Fasting 99 mg/dL (60-99); HDL Cholesterol 64 mg/dL; LDL Cholesterol Calculated 130 mg/dl; Potassium 4.2 mmol/L (3.3-5.1); Sodium 139 mmol/L (135-145); Triglycerides 46 mg/dL
== END 2020-05-04 08:20 | disposition home or self-care (01) ==
LOC: HO.MAMMO 08:19
PROVIDERS: PCP Internal Medicine; Visit Provider Internal Medicine
DX: Z12.31 Encounter for screening mammogram for malignant neoplasm of breast (principal); E66.9 Obesity, unspecified
CPT/HCPCS: 36415; 77063; 77067; 80053; 80061

== ENCOUNTER 2020-05-05 14:15 | Outpatient (REF) | payer OTHER, SELFPAY ==
[2020-05-06 20:37] LABS: C. trachomatis RNA TMA NOT DETECTED (NOT DETECTED); N. gonorrhoeae RNA TMA NOT DETECTED (NOT DETECTED)
== END 2020-05-05 14:16 | disposition home or self-care (01) ==
LOC: HO.LAB 14:15
PROVIDERS: PCP Internal Medicine; Visit Provider Obstetrics & Gynecology
DX: N83.292 Other ovarian cyst, left side (principal); Z32.02 Encounter for pregnancy test, result negative
CPT/HCPCS: 36415; 81025; 87491; 87591

== ENCOUNTER 2020-08-05 15:56 | Outpatient (REF) | payer OTHER, SELFPAY ==
--- NOTE | ~2020-08-05 | US_ITS ---
EXAMINATION: US PELVIS COMPLETE US PELVIS TRANSVAGINAL CLINICAL INFORMATION: Follow up cyst. LMP 07/22/2020. COMPARISON: Multiple priors, most recent pelvic ultrasound dated 04/23/2020. TECHNIQUE: Transabdominal and transvaginal imaging was performed. FINDINGS: The uterus is of normal size and echogenicity measuring 8.9 x 3.2 x 4.3 cm. Myometrial cysts are noted measuring 0.8 and 0.4 cm, new when compared to the prior examination. The previously seen possible fibroid is not seen on the current examination. A regular homogeneous endometrium is identified measuring 0.9 cm. There are nabothian cysts. The right ovary measures 2.6 x 2.5 x 1.9 cm for a volume of 6.5 mm. Multiple probable right-sided ovarian follicles. The left ovary measures 2.2 x 1.6 x 1.3 cm for a volume of 2.4 cm. Previously seen complex left ovarian cyst is no longer identified. There is trace free fluid in the right adnexa. US/US pelvic complete IMPRESSION: 1. Previously seen myometrial heterogeneous focus no longer identified. Small myometrial cysts which appear simple and are new when compared to the prior examination. Unremarkable endometrium. 2. Resolution of the previously seen complex left ovarian cyst. Multiple right ovarian follicles. 3. Trace right adnexal free fluid.
--- NOTE | ~2020-08-05 | US_ITS ---
EXAMINATION: US PELVIS COMPLETE US PELVIS TRANSVAGINAL CLINICAL INFORMATION: Follow up cyst. LMP 07/22/2020. COMPARISON: Multiple priors, most recent pelvic ultrasound dated 04/23/2020. TECHNIQUE: Transabdominal and transvaginal imaging was performed. FINDINGS: The uterus is of normal size and echogenicity measuring 8.9 x 3.2 x 4.3 cm. Myometrial cysts are noted measuring 0.8 and 0.4 cm, new when compared to the prior examination. The previously seen possible fibroid is not seen on the current examination. A regular homogeneous endometrium is identified measuring 0.9 cm. There are nabothian cysts. The right ovary measures 2.6 x 2.5 x 1.9 cm for a volume of 6.5 mm. Multiple probable right-sided ovarian follicles. The left ovary measures 2.2 x 1.6 x 1.3 cm for a volume of 2.4 cm. Previously seen complex left ovarian cyst is no longer identified. There is trace free fluid in the right adnexa. US/US transvaginal IMPRESSION: 1. Previously seen myometrial heterogeneous focus no longer identified. Small myometrial cysts which appear simple and are new when compared to the prior examination. Unremarkable endometrium. 2. Resolution of the previously seen complex left ovarian cyst. Multiple right ovarian follicles. 3. Trace right adnexal free fluid.
== END 2020-08-05 15:57 | disposition home or self-care (01) ==
LOC: HO.US 15:56
PROVIDERS: PCP Internal Medicine; Visit Provider Obstetrics & Gynecology
DX: N83.292 Other ovarian cyst, left side (principal)
CPT/HCPCS: 76830; 76856

== ENCOUNTER → 2020-08-12 15:46 | Outpatient (BNVA) | payer OTHER, SELFPAY | PROVIDERS: Visit Provider Obstetrics & Gynecology | DX: N83.292 Other ovarian cyst, left side (principal) ==

== ENCOUNTER → 2020-08-27 15:08 | Outpatient (BNVA) | payer OTHER, SELFPAY | PROVIDERS: PCP Internal Medicine; Visit Provider Nurse Practitioner ==

== ENCOUNTER 2020-09-02 09:25 | Outpatient (REF) | payer OTHER, SELFPAY ==
[2020-09-02 10:40] LABS: Basophils Percent Auto 0.4 % (0-2); Eosinophils Absolute Auto 0.3 X10*3/uL (0.0-0.4); Eosinophils Percent Auto 3.9 % (0-4); Hematocrit 38.1 % (37-47); Hemoglobin 12.5 g/dl (12.0-16.0); Imm Gran Abs Auto 0.02 X10*3/uL (0.00-0.03); Imm Gran Pct Auto 0.3 % (0.0-0.4); Lymphocytes Absolute Auto 3.4 X10*3/uL (1.2-4.9); Lymphocytes Percent Auto 45.7 % (20-40); MANUAL DIFF FLAG NO; Mean Corpuscular HGB Conc 32.8 g/dl (31.0-35.0); Mean Corpuscular Hemoglobin 33.4 pg (27.0-33.0); Mean Corpuscular Volume 101.9 fL (80-98); Mean Platelet Volume 10.1 fL (9.4-12.3); Monocytes Absolute Auto 0.6 X10*3/uL (0.1-1.2); Monocytes Percent Auto 7.9 % (2-11); Neutrophils Absolute Auto 3.1 X10*3/uL (2.0-8.3); Neutrophils Percent Auto 41.8 % (45-73); Platelet Count 237 X10*3/uL (160-400); Red Blood Count 3.74 X10*6/uL (4.20-5.50); Red Cell Distribution Width 13.2 % (11.0-16.0); White Blood Count 7.5 X10*3/uL (4.8-10.8)
== END 2020-09-02 09:26 | disposition home or self-care (01) ==
LOC: HO.LAB 09:25
PROVIDERS: PCP Internal Medicine; Visit Provider Internal Medicine
DX: D64.9 Anemia, unspecified (principal)
CPT/HCPCS: 36415; 85025

== ENCOUNTER → 2020-10-06 14:44 | Outpatient (BNVA) | payer OTHER, SELFPAY | PROVIDERS: PCP Internal Medicine; Visit Provider Nurse Practitioner ==

== ENCOUNTER 2020-10-23 15:34 | Outpatient (REF) | payer OTHER, SELFPAY | END 2020-10-23 15:35 | disposition home or self-care (01) | LOC: HO.LAB 15:34 | PROVIDERS: PCP Internal Medicine; Visit Provider Internal Medicine | DX: Z20.822 Contact with and (suspected) exposure to COVID-19 (principal) | CPT/HCPCS: C9803; U0003; U0005 ==

== ENCOUNTER 2020-10-30 08:49 | Outpatient (REF) | payer OTHER, SELFPAY ==
[2020-10-30 10:23] LABS: Hematocrit 39.5 % (37-47); Hemoglobin 13.1 g/dl (12.0-16.0); Mean Corpuscular HGB Conc 33.2 g/dl (31.0-35.0); Mean Corpuscular Hemoglobin 32.8 pg (27.0-33.0); Mean Corpuscular Volume 98.8 fL (80-98); Mean Platelet Volume 10.1 fL (9.4-12.3); Platelet Count 245 X10*3/uL (160-400); Red Cell Distribution Width 12.8 % (11.0-16.0); White Blood Count 9.3 X10*3/uL (4.8-10.8)
[2020-10-30 11:07] LABS: TSH reflex Free T4 0.87 uIU/mL (0.32-4.0)
[2020-10-30 16:29] LABS: CT PCR NOT DETECTED (Not Detect.); NG PCR NOT DETECTED (Not Detect.)
[2020-10-31 11:02] LABS: BV Int Neg Control Negative (Negative); BV Int Pos Control Positive (Positive)
[2020-11-04 13:30] LABS: HPV mRNA E6/E7 rflx Not Detected (Not Detected)
== END 2020-10-30 08:50 | disposition home or self-care (01) ==
LOC: HO.LAB 08:49
PROVIDERS: PCP Internal Medicine; Visit Provider Advanced Practice Midwife
DX: Z01.419 Encounter for gynecological examination (general) (routine) without abnormal findings (principal); N92.0 Excessive and frequent menstruation with regular cycle; N94.6 Dysmenorrhea, unspecified; Z87.42 Personal history of other diseases of the female genital tract; Z20.2 Contact with and (suspected) exposure to infections with a predominantly sexual mode of transmission
CPT/HCPCS: 36415; 84443; 85027; 87480; 87491; 87510; 87591; 87624; 87660; 88142

== ENCOUNTER 2020-11-26 10:01 | Outpatient (REF) | payer OTHER, SELFPAY | END 2020-11-26 10:02 | disposition home or self-care (01) | LOC: HO.LAB 10:01 | PROVIDERS: PCP Internal Medicine; Visit Provider Advanced Practice Midwife | DX: Z30.09 Encounter for other general counseling and advice on contraception (principal); N93.9 Abnormal uterine and vaginal bleeding, unspecified | CPT/HCPCS: 58100; 81025; 88305 ==

== ENCOUNTER → 2020-12-08 11:25 | Outpatient (BNVA) | payer OTHER, SELFPAY | PROVIDERS: PCP Internal Medicine; Visit Provider Advanced Practice Midwife ==

== ENCOUNTER 2020-12-21 08:00 | Outpatient (RCR) | payer OTHER, SELFPAY ==
--- NOTE | 2020-08-28 10:34 | MHC.PT.EP ---
[facility] [place] [facility] [place] [facility] [place] [facility] [address] Joslyn Ontiveros [address] [phone] F: [phone] F: [phone] F: [phone] F: [phone] Physical Therapy Plan of Care Date of Evaluation: Date of Surgery: NA Diagnosis: Sacrococcygeal Disorder Assessment: Radha is a 39 y.o. female referred to PT for sacrococcygeal disorder . On PT evaluation she presents with 8/10 pain, TTP L5 through coccyx & B lower back, Decreased lumbar ROM, decreased TrA activation, decreased B hip strength, pelvis asymmetry, and gait deviations. Her symptoms began apparent following a fall down her stairs in 2011, and were exacerbated following a surgery in 2013 for mass removal from her coccyx. She also reports of having issues with bowel movements since the fall. 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 She is very motivated for PT. Frequency and Duration: The patient will be seen 2x week for 6 weeks Short Term Goals: 1. In 2 weeks patient will report 50% decreased pain to improve her ability for self care and dressing. 2. In 3 weeks patient will have improved lumbar ROM in all planes to improve her ability for bending over with cleaning and other IADLS. Nursing Home Goals: 1. In 5 weeks patient will improve B hip strength by 1 MMT grade to improve ability for running and social activities. 2. In 6 weeks patient will be independent with [facility] for symptom management following d/c. Treatment Plan: Modalities to reduce pain, spasms and effusion. Manual therapy to restore motion and function. Therapeutic exercise to improve strength and flexibility. Neuromuscular re-education for posture and balance. Therapeutic activities to return to functional activities of daily living. Electronically signed by: Renetta Torres PT DPT Please sign and return to therapist. Thank you for your referral.
--- NOTE | 2020-12-21 09:24 | MHC.PT.RE ---
[facility] [place] [facility] [place] [facility] [place] [facility] [address] Joslyn Ontiveros [address] [phone] F: [phone] F: [phone] F: [phone] F: [phone] Physical Therapy Re-evaluation Diagnosis: Sacrococcygeal Disorder Date of Surgery: NA Date of Evaluation: 08/28/20 Treatments to Date: 18 Cancellations to Date: No Shows to Date: Subjective: I am not getting the same pain relief with self mobilizations as compared to when you do it Pain Score: 1 Pain Location: B lower back, SI/Coccyx region Objective Measures: Pt had a right on left sacral torsion. pt had right anterior innominant Internal pelvic exam: strength 4/5, endurance 10 seconds, repeated endurance 2, quick contractions 6 POP: grade 1 cystocele, grade 1 rectocele that came to the opening of the introitus. internal rectal exam- painful palpation on right inferior border of the coccyx. pain with coccyx mobilization. external hemrrhoid palpable. Assessment: Pt had a right on left sacral torsion today. I attempted Muscle energy Techniques (MET) on the right side first and this did not improve alignment. I did MET to the left illeum (resisted flexion) and this helped the most. I did cupping simultaneously as doing coccyx and sacrotuberous mobilizations and this did not offer any more pain relief. pt reported it feels like your pulling a dent out of my body I did PA mobs on right sacral border. She also had a right posterior innominant. Overall, the pt feels a significant improvement with BM. Less straining reported with BM, which is important due to her current hemorrhoids. She has tried to do self mobs but this has been unsuccessful. She feels our mobilizations in the clinic are helping the most with pain relief and with improving BM. She is still being treated for pelvic instability which has shown improvement in activity tolerance. Pt would benefit from 1x/week x 10 more weeks. Short Term Goals: 1. In 2 weeks patient will report 50% decreased pain to improve her ability for self care. goal met. 2. In 3 weeks patient will have improved lumbar ROM in all planes to improve her ability for bending over with cleaning and other IADLS. goal met 3. Pt will be able to have regular BM without straining in 90% of the time. [facility] Goals: 1. In 5 weeks patient will improve B hip strength by 1 MMT grade to improve ability for running and social activities. ongoing. 2. In 6 weeks patient will be independent with [facility] for symptom management following d/c. ongoing 3. Pt to feel 75% less pain in her pelvis. ongoing Frequency and Duration: The patient will be seen 2x week for 6 weeks Treatment Plan: Therapeutic Exercise Dynamic Therapeutic Activities Neuromuscular Re-ed Manual Therapies Home Exercise Program Patient Education Pelvic Floor Therapy cupping, manual therapy, MET Reviewed/ Agreed with Student Documentation: Yes Therapist: Renetta Torres, PT DPT Electronically signed by: Yeny Prakash PT DPT Please sign and return to therapist. Thank you for your referral.
== END 2020-12-23 08:00 | disposition home or self-care (01) ==
LOC: HO.PT 08:00
PROVIDERS: PCP Internal Medicine; Visit Provider Internal Medicine
DX: M53.3 Sacrococcygeal disorders, not elsewhere classified (principal)
CPT/HCPCS: 97110; 97112; 97140; 97161; 97530

== ENCOUNTER → 2021-02-09 13:55 | Outpatient (BNVA) | payer OTHER, SELFPAY | PROVIDERS: PCP Internal Medicine; Visit Provider Advanced Practice Midwife | DX: Z30.430 Encounter for insertion of intrauterine contraceptive device (principal) | CPT/HCPCS: 81025; J7298 ==

== ENCOUNTER → 2021-04-01 14:17 | Outpatient (BNVA) | payer OTHER, SELFPAY | PROVIDERS: PCP Internal Medicine; Visit Provider Advanced Practice Midwife ==

== ENCOUNTER 2021-04-12 09:55 | Emergency (ER) | payer OTHER, SELFPAY ==
--- NOTE | ~2021-04-12 | XR_ITS ---
EXAMINATION: AP PELVIS AND RIGHT WRIST. CLINICAL INFORMATION: Fall with bilateral hip pain. COMPARISON: None TECHNIQUE: Pelvis one view. Right wrist 4 views. FINDINGS: AP pelvis: There is normal symmetry of bilateral hip joints and SI joints. No visible acute fracture, dislocation or lytic process seen. There is an IUD located within the pelvis. RIGHT WRIST: There is no visible acute fracture, dislocation or subluxation. The radial ulnar carpal, intracarpal and carpometacarpal joint space is maintained normal. No abnormal joint effusion seen. There is negative ulnar variance.. XR/XR pelvis 1-2V IMPRESSION: Unremarkable AP pelvis exam. Unremarkable right wrist exam.
--- NOTE | ~2021-04-12 | XR_ITS ---
EXAMINATION: AP PELVIS AND RIGHT WRIST. CLINICAL INFORMATION: Fall with bilateral hip pain. COMPARISON: None TECHNIQUE: Pelvis one view. Right wrist 4 views. FINDINGS: AP pelvis: There is normal symmetry of bilateral hip joints and SI joints. No visible acute fracture, dislocation or lytic process seen. There is an IUD located within the pelvis. RIGHT WRIST: There is no visible acute fracture, dislocation or subluxation. The radial ulnar carpal, intracarpal and carpometacarpal joint space is maintained normal. No abnormal joint effusion seen. There is negative ulnar variance.. XR/XR wrist RT 2V IMPRESSION: Unremarkable AP pelvis exam. Unremarkable right wrist exam.
[2021-04-12 09:59] VITALS: BP 130/80; PULSE 100; RESP 16; TEMP 36.6; O2SAT 97; BMI 31.6
--- NOTE | 2021-04-12 10:18 | ED_ITS ---
HPI - Fall General Chief Complaint: Fall Stated Complaint: fall - rt arm injury Time Seen by Provider: 04/12/21 10:04 Source: patient Mode of arrival: ambulatory Limitations: no limitations History of Present Illness HPI Narrative: Patient is a 40 year old female presenting to the emergency department today with right wrist pain and bilateral hip pain. Patient states that she slipped and fell on an outstretched hand, specifically her right hand. Patient states that both of her hips have been having pain since the incident as well. Patient denies hitting her head with the incident. Patient denies any loss of consciousness with the incident. Patient denies any dizziness, lightheadedness, abdominal pain, nausea, vomiting, fever, chills, blurry vision, double vision, loss of vision, chest pain, difficulty breathing, shortness of breath, back pain, night sweats, pain with urination, increased urinary frequency, increased urinary urgency, blood in her urine or stool, syncope or a near syncopal e pisode, bowel incontinence, bladder incontinence, bowel retention, bladder retention, or any other complaints at this time. MD complaint: fall Onset (ago): minute(s) Fall from: standing Fall witnessed: no Place fall occurred: home Loss of consciousness: none Prolonged down time: no Symptoms prior to fall: none Context: tripped/slipped Related Data Home Medications Medication Instructions Recorded Confirmed methylcellulose (laxative) 500 mg 1,000 mg PO TID tab 08/27/20 03/15/21 tablet (Citrucel) sulfur-witch trinity leaf 150 mg tab PO 11/26/20 03/15/21 tablet Previous Rx's Medication Instructions Recorded sennosides 8.6 mg capsule (senna) 17.2 mg PO BEDTIME 30 Days #60 cap 08/27/20 dicyclomine 20 mg tablet 20 mg PO QID #360 tab 01/15/21 escitalopram oxalate 10 mg tablet 10 mg PO DAILY 90 Days #90 tab 03/11/21 Allergies Allergy/AdvReac Type Severity Reaction Status Date / Time amoxicillin [Amoxicillin] Allergy Severe anaphylaxis Verified 04/01/21 14:28 Penicillins Allergy Severe anaphylaxis Verified 04/01/21 14:28 Sulfa (Sulfonamide Allergy Severe Hives Verified 04/01/21 14:28 Antibiotics) codeine [Codeine] Allergy Intermediate rash Verified 04/01/21 14:28 Review of Systems Constitutional: Constitutional: Reports no additional constitutional complaints, Denies chills, Denies fever(s) and Denies night sweats Eyes: Eyes: Reports no additional eye complaints, Denies blurry vision, Denies change in vision, Denies diplopia, Denies eye discharge, Denies loss of vision and Denies eye pain ENT: Denies dizziness Cardiovascular: Cardiovascular: Reports no additional cardiovascular complaints, Denies chest pain, Denies lightheadedness, Denies Loss of Consciousness and Denies dyspnea Respiratory: Respiratory: Reports no additional respiratory complaints and Denies dyspnea Gastrointestinal: Gastrointestinal: Reports no additional gastrointestinal complaints, Denies abdominal pain, Denies melena, Denies hematochezia, Denies change in bowel habits and Denies change in stool character Genitourinary: Genitourinary: Denies hematuria, Denies urinary frequency, Denies dysuria, Denies urinary incontinence, Denies urinary hesitancy and Denies urinary urgency Musculoskeletal: Musculoskeletal: Reports no additional musculoskeletal complaints, Denies numbness and Denies tingling Comments: right wirst pain, bilateral hip pain Neurologic: Denies dizziness, Denies loss of vision, Denies numbness and Denies tingling Psychiatric: Psychiatric: Reports no additional psychiatric complaints Endocrine: Endocrine: Reports no additional endocrine complaints Hematologic/Lymphatic: Hematologic/Lymphatic: Reports no additional hematologic/lymphatic complaints Allergic/Immunologic: Allergic/Immunologic: Reports no additional allergic/immunologic complaints [facility] Past Medical History Attestation statement: The following information was validated with the patient. Source: old records reviewed Medical History Asthma Back pain Coccydynia COVID-19 (~03/23/20) External hemorrhoids with complication Irritable bowel syndrome with diarrhea Obese Peptic ulcer Physical exam PONV (postoperative nausea and vomiting) Rash Traumatic coccydynia Surgical History H/O: hemorrhoidectomy History of colonoscopy Hx of excision of mass [place] teeth removed Family History Family History Father Alive and well Substance use disorder Mother Family history of high blood pressure History of hip replacement Brain aneurysm Social History Social History Household Members: Children and None Housing: House Alcohol intake: former Patient Tobacco Use Status: Never used Tobacco e-Cigarette/Vaping Use: Never Used Second Hand Smoke Exposure: No Substance Use Type: Marijuana service: No Current occupational status: employed Current occupational exposures/hazards: No Physical Exam Vital Signs: Vital Signs: Last Vital Signs Temp 97.9 F 04/12/21 09:59 Pulse 100 04/12/21 09:59 Resp 16 04/12/21 09:59 BP 130/80 04/12/21 09:59 Pulse Ox 97 04/12/21 09:59 BMI result Body Mass Index 31.6 Const: General: cooperative, no acute distress, alert and awake Nutritional Appearance: well nourished Orientation/consciousness: patient oriented x3 Limitations: no limitations HENMT: Head: Yes normal to inspection and Yes atraumatic Ears: hearing grossly normal bilaterally and external ears normal General nose exam: Normal external nose present, no nasal discharge noted and no epistaxis Face and sinus: Yes normal facial exam, No abrasion and No laceration Mouth: Normal oral and palatal mucosa present, no drooling and no muffled voice Eyes: General: appearance normal, both eyes and all related structures Periorbital: periorbital findings normal Eyelids: Yes eyelids normal Conjunctivae: conjunctivae normal Pupils: Equal, round and reactive pupils present EOM: EOMs intact bilaterally Neck: Neck: Yes normal visual inspection, Yes full ROM and Yes no lymphadenopathy Chest: Chest palpation & inspection: normal inspection of the chest Resp: Effort & Inspection: normal respiratory effort and able to speak in complete sentences GI: Inspection: Yes normal to inspection Neuro: General: patient oriented x3 and moves all extremities Cranial nerves: Yes Equal, round and reactive pupils present Cognition (Neuro): normal cognition Motor exam (neuro): 5/5 motor strength present throughout Sensory Exam: Normal double simultaneous stimulation for sensation Coordination: [id number] test normal Extrem: General: Yes normal to inspection, Yes full ROM and Yes capillary refill normal Psych: Appearance: grossly normal Mental Status: mental status grossly normal Affect: normal affect Attitude: cooperative Thought process: Normal thought process present Thought content: Normal thought content present Insight: Good insight present (Psych) MDM - Fall MDM Narrative Medical decision making narrative: Patient is a 40 year old female presenting to the emergency department today with right wrist pain and bilateral hip pain. Patient's physical exam was unremarkable. Patient's right wrist and bilateral hip x-ray showed no acute process. I explained my physical exam findings as well as all test results to the patient. I answered all questions asked by the patient. I stressed the importance of the patient following up with her primary care provider and an orthopedic provider. I stressed the importance of the patient returning to the emergency department immediately if her symptoms were to worsen or if she were to develop any dizziness, shortness of breath, difficulty breathing, chest pain, blurry vision, loss of vision, nausea, vomiting, abdominal pain, fever, chills, back pain, or any other complaints. Patient verbalized agreement and understanding with this treatment plan and discharge. Differential Diagnosis Differential diagnosis: Likely dislocation, fracture and compression fracture Medical Records Attestation: I reviewed the patient's medical records. Imaging Data Right wrist x-ray, bilateral hip x-ray: Attestation: I personally reviewed and interpreted this imaging study as follows: Radiologist's impression: EXAMINATION: AP PELVIS AND RIGHT WRIST. CLINICAL INFORMATION: Fall with bilateral hip pain.? COMPARISON: None? TECHNIQUE: Pelvis one view. Right wrist 4 views.? FINDINGS: AP pelvis: There is normal symmetry of bilateral hip joints and SI joints. No visible acute fracture, dislocation or lytic process seen. There is an IUD located within the pelvis. RIGHT WRIST: There is no visible acute fracture, dislocation or subluxation. The radial ulnar carpal, intracarpal and carpometacarpal joint space is maintained normal. No abnormal joint effusion seen. There is negative ulnar variance..? XR/XR wrist RT 2V IMPRESSION: Unremarkable AP pelvis exam. ? Unremarkable right wrist exam. Dictated By: Francesco Torrez MD Signed By: Electronically signed by Francesco Torrez MD 04/12/21 Discharge Plan Discharge Clinical Impression: Pain, wrist Patient Disposition: Home, Self-Care Additional Instructions: Call to schedule a follow up appointment with an Orthopedic provider. Follow up with your primary care provider. Return to the emergency department immediately if your symptoms worsen or if you develop any dizziness, shortness of breath, difficulty breathing, chest pain, blurry vision, loss of vision, nausea, vomiting, abdominal pain, fever, chills, back pain, or any other complaints. Prescriptions: No Action dicyclomine 20 mg tablet 20 mg PO QID Qty: 360 2RF escitalopram oxalate 10 mg tablet 10 mg PO DAILY 90 Days Qty: 90 1RF Citrucel 500 mg tablet 1,000 mg PO TID 0RF sulfur-witch trinity leaf 150 mg tablet PO 0RF senna 8.6 mg capsule 17.2 mg PO BEDTIME 30 Days Qty: 60 6RF Referrals: Cristi Watson MD [Physician] - 2 days Stand Alone Forms: Work/School Release Interventions: ED Discharge Assessment Last Done: 04/12/21 11:29 Discharge Date/Time: 04/12/21 11:30 Print Language: French
== END 2021-04-12 11:30 | disposition home or self-care (01) ==
PROVIDERS: Emergency Provider Emergency Medicine; PCP Internal Medicine
DX: M25.531 Pain in right wrist (principal); M25.552 Pain in left hip; M25.551 Pain in right hip
CPT/HCPCS: 72170; 73100; 99283

== ENCOUNTER → 2021-04-16 07:50 | Outpatient (BNVA) | payer OTHER, SELFPAY | PROVIDERS: PCP Internal Medicine; Referring Provider Internal Medicine; Visit Provider Nurse Practitioner | DX: M25.531 Pain in right wrist (principal); K58.2 Mixed irritable bowel syndrome; K64.4 Residual hemorrhoidal skin tags | CPT/HCPCS: 29085; 99203; 99213 ==

== ENCOUNTER 2021-04-19 00:26 | Emergency (ER) | payer OTHER, SELFPAY ==
[2021-04-19 01:05] VITALS: BP 119/62; PULSE 61; RESP 16; TEMP 36.5; O2SAT 98; BMI 31.6
== END 2021-04-19 03:27 | disposition left against medical advice (07) ==
PROVIDERS: Emergency Provider Emergency Medicine
DX: S09.90XA Unspecified injury of head, initial encounter (principal); W19.XXXA Unspecified fall, initial encounter; Y93.9 Activity, unspecified; Y92.9 Unspecified place or not applicable; Y99.9 Unspecified external cause status
CPT/HCPCS: 99281; 99282

== ENCOUNTER 2021-04-30 06:56 | Outpatient (REF) | payer OTHER, SELFPAY ==
--- NOTE | ~2021-04-30 | XR_ITS ---
EXAMINATION: RIGHT WRIST X-RAY CLINICAL INFORMATION: Pain COMPARISON: Previous x-ray 04/12/2021 TECHNIQUE: 4 views of the right wrist FINDINGS: Bone alignment is normal. No fracture or dislocation is seen. Joint spaces are normal. Soft tissues are normal. XR/XR wrist RT w scaphoid IMPRESSION: Normal right wrist.
[2021-04-30 09:57] LABS: MANUAL DIFF FLAG NO
[2021-04-30 10:36] LABS: Basophils Percent Auto 0.3 % (0-2); Eosinophils Absolute Auto 0.3 X10*3/uL (0.0-0.4); Eosinophils Percent Auto 3.4 % (0-4); Hematocrit 42.2 % (37.0-47.0); Hemoglobin 13.8 g/dl (12.0-16.0); Imm Gran Abs Auto 0.03 X10*3/uL (0.00-0.03); Imm Gran Pct Auto 0.3 % (0.0-0.4); Lymphocytes Absolute Auto 3.3 X10*3/uL (1.2-4.9); Lymphocytes Percent Auto 35.3 % (20-40); Mean Corpuscular HGB Conc 32.7 g/dl (31.0-35.0); Mean Corpuscular Hemoglobin 33.2 pg (27.0-33.0); Mean Corpuscular Volume 101.4 fL (80.0-98.0); Monocytes Absolute Auto 0.7 X10*3/uL (0.1-1.2); Monocytes Percent Auto 7.7 % (2-11); Platelet Count 273 X10*3/uL (160-400); Red Blood Count 4.16 X10*6/uL (4.20-5.50); Red Cell Distribution Width 13.5 % (11.0-16.0); White Blood Count 9.4 X10*3/uL (4.8-10.8)
[2021-04-30 11:36] LABS: Alanine Aminotransferase 7 U/L (0-31); Albumin Level 4.4 g/dL (3.5-5.0); Alkaline Phosphatase 71 U/L (39-117); Anion Gap 12 (12-20); Aspartate Amino Transferase 15 U/L (5-31); Bilirubin Total 0.5 mg/dL (0.0-1.0); Blood Urea Nitrogen 8 mg/dL (9-16); Calcium 9.1 mg/dL (8.4-10.2); Carbon Dioxide 27 mmol/L (22-29); Chloride 104 mmol/L (96-108); Cholesterol 177 mg/dL; Estimated Glomerular Filt Rate > 60; Glucose Fasting 81 mg/dL (60-99); HDL Cholesterol 56 mg/dL; LDL Cholesterol Calculated 107 mg/dl; Potassium 4.2 mmol/L (3.3-5.1); Sodium 139 mmol/L (135-145); Total Protein 7.1 g/dL (6.5-8.0); Triglycerides 71 mg/dL
== END 2021-04-30 06:57 | disposition home or self-care (01) ==
LOC: HO.HOSX 06:56
PROVIDERS: Absent Provider Internal Medicine; PCP Internal Medicine; Visit Provider Physician Assistant
DX: S62.001D Unspecified fracture of navicular [scaphoid] bone of right wrist, subsequent encounter for fracture with routine healing (principal); M53.3 Sacrococcygeal disorders, not elsewhere classified; E78.5 Hyperlipidemia, unspecified
CPT/HCPCS: 29085; 36415; 73110; 80053; 80061; 85025

== ENCOUNTER 2021-05-15 08:30 | Outpatient (REF) | payer OTHER, SELFPAY ==
--- NOTE | ~2021-05-15 | MM_ITS ---
EXAMINATION: MM SCREENING DIGITAL BREAST TOMOSYNTHESIS, BILATERAL CLINICAL INFORMATION: Screening. Asymptomatic. The lifetime risk of breast cancer based on the Tyrer-Cuzick Model is 12%. COMPARISON: Mammography: 05/04/2020, 04/29/2019 (baseline). TECHNIQUE: Digital breast tomosynthesis is performed in both the craniocaudal and mediolateral oblique views along with computer-aided detection (CAD). Synthesized 2D images are generated from the tomosynthesis. FINDINGS: There are scattered areas of fibroglandular density (ACR BI-RADS breast composition Category b). Breast tissue composition borders on predominantly fatty. Background stromal and fibroglandular densities are stable. There are no significant masses, abnormal calcifications, or other abnormalities. No significant changes. MM/MM tomosynthesis screening BI IMPRESSION: No mammographic evidence of malignancy. ASSESSMENT: BI-RADS 1: Negative RECOMMENDATION: Routine annual mammography screening. This patient's information was entered into a reminder system with a target due date for their next mammogram.
== END 2021-05-15 08:31 | disposition home or self-care (01) ==
LOC: HO.MAMMO 08:30
PROVIDERS: PCP Internal Medicine; Visit Provider Internal Medicine
DX: Z12.31 Encounter for screening mammogram for malignant neoplasm of breast (principal)
CPT/HCPCS: 77063; 77067

== ENCOUNTER 2021-05-19 17:53 | Outpatient (REF) | payer OTHER, SELFPAY ==
--- NOTE | ~2021-05-19 | MR_ITS ---
EXAMINATION: MR BRAIN WITHOUT CONTRAST CLINICAL INFORMATION: New daily persistent headaches. COMPARISON: Head CT from 03/02/2015. TECHNIQUE: Multiplanar, multisequence imaging of the brain was performed without contrast. FINDINGS: No diffusion abnormalities are identified to suggest an acute or subacute infarct. The ventricles are normal in size. No mass effect or midline shift is seen. No brain parenchymal signal abnormality is noted. No extra-axial fluid collections are seen. The brainstem and cerebellum are normal. The gradient refocused acquisition demonstrates no pathologic magnetic susceptibility artifact to indicate underlying acute or chronic blood products. The craniovertebral junction, marrow signal, and midline structures are normal. The major intracranial flow voids at the level of the atka of [place] are preserved. The dural venous sinus flow voids are maintained. The mastoid air cells and paranasal sinuses are well aerated. MR/MR head/brain wo con IMPRESSION: Normal MRI of the brain. No acute process.
== END 2021-05-19 17:54 | disposition home or self-care (01) ==
LOC: HO.MRI 17:53
PROVIDERS: Visit Provider Internal Medicine
DX: G44.52 New daily persistent headache (NDPH) (principal)
CPT/HCPCS: 70551

== ENCOUNTER 2021-05-28 08:03 | Outpatient (REF) | payer OTHER, SELFPAY ==
--- NOTE | ~2021-05-28 | XR_ITS ---
EXAMINATION: XR WRIST, RIGHT CLINICAL INFORMATION: Right hand pain. COMPARISON: Multiple priors, most recent right wrist radiographs dated 04/30/2021. TECHNIQUE: AP, oblique, lateral, and scaphoid views of the right wrist. FINDINGS: No acute fracture or dislocation. Normal carpal alignment. No joint space narrowing or marginal osteophytes. No osseous erosion. No abnormal soft tissue calcification. XR/XR wrist RT w scaphoid IMPRESSION: Unremarkable examination.
== END 2021-05-28 08:04 | disposition home or self-care (01) ==
LOC: HO.HOSX 08:03
PROVIDERS: Visit Provider Physician Assistant
DX: M25.531 Pain in right wrist (principal); M77.8 Other enthesopathies, not elsewhere classified; M79.641 Pain in right hand
CPT/HCPCS: 73110

== ENCOUNTER 2021-06-24 13:13 | Outpatient (REF) | payer OTHER, SELFPAY ==
--- NOTE | ~2021-06-24 | FL_ITS ---
PROCEDURE: XR INJECTION ARTHROGRAM WRIST, RIGHT CLINICAL INFORMATION: Pain. History of injury. COMPARISON: 05/28/2021 TECHNIQUE: Fluoroscopic-guided injection of the radiocarpal joint with instillation of contrast for MRI. FINDINGS: Informed consent was obtained from the patient prior to the procedure. During this process, the procedure and potential alternatives were explained, along with the intended outcome and benefits. The risks of the procedure, as well as the risk of not doing the procedure, were discussed. The patient was given the opportunity to ask questions regarding the procedure and appeared competent to make medical decisions. A signed consent form which documents this discussion was placed in the medical record. Using sterile technique and fluoroscopic guidance a 25-gauge needle was placed from a dorsal approach into the radiocarpal joint. A small amount of contrast was administered demonstrating intra-articular positioning of the needle. Following this 3 mL of a mixture of 20 mL of sterile saline and 0.05 mL of Gadavist was instilled into the wrist joint. Patient tolerated procedure without difficulty. FLUOROSCOPY TIME: 0.7 minutes DOSE AREA PRODUCT: 0.195 Gy-cm2 (donahue-centimeter squared) FL/FL arthrogram wrist RT IMPRESSION: Right wrist intra-articular injection for MRI as described.
--- NOTE | ~2021-06-24 | MR_ITS ---
EXAMINATION: MR WRIST WITH CONTRAST, RIGHT CLINICAL INFORMATION: Fall in April 2021. Right wrist pain and stiffness. COMPARISON: Right wrist fluoroscopic arthrography done earlier the same day. Most recent right wrist radiographs dated 05/28/2021. TECHNIQUE: MRI of the wrist was performed following the intra-articular administration of a dilute gadolinium-containing solution (arthrogram) on a high-field scanner. FINDINGS: TRIANGULAR FIBROCARTILAGE: There is attenuation at the central aspect of the radial triangular fibrocartilage complex with a possible full-thickness defect measuring 0.2 cm in ML dimension (coronal image 11/23). INTRINSIC LIGAMENTS: Intact. TENDONS/MEDIAN NERVE: Intact. ARTICULAR CARTILAGE/BONE: Intact articular cartilage. No marrow edema or evidence of acute osseous injury. No concerning lytic or blastic osseous lesion. JOINT FLUID/SOFT TISSUES: Trace distal radioulnar joint effusion. MR/MR wrist RT w con IMPRESSION: 1. Attenuation through the central radial triangular fibrocartilage complex with a possible full-thickness tear measuring 0.2 cm in ML dimension. Trace distal radioulnar joint effusion. 2. No evidence of acute osseous injury. 3. No intrinsic ligament tear.
== END 2021-06-24 13:14 | disposition home or self-care (01) ==
LOC: HO.XRAY 13:13
PROVIDERS: PCP Internal Medicine; Visit Provider Physician Assistant
DX: M77.8 Other enthesopathies, not elsewhere classified (principal); M25.531 Pain in right wrist
CPT/HCPCS: 25246; 73115; 73222; A9585

== ENCOUNTER → 2021-07-21 09:20 | Outpatient (BNVA) | payer OTHER, SELFPAY | PROVIDERS: Visit Provider Orthopaedic Surgery | DX: M77.8 Other enthesopathies, not elsewhere classified (principal) ==

== ENCOUNTER 2021-08-20 08:30 | Outpatient (RCR) | payer OTHER, SELFPAY ==
--- NOTE | 2021-06-23 10:16 | MHC.OT.OEV ---
[address] [phone] F: [phone] Occupational Therapy Evaluation Diagnosis: Pain in right wrist . Enthesopathies , not elsewere described Date of Onset: 04/12/21 Date of Surgery: Attending Provider: James Turner PA-C Prescribed Treatment: Eval and treat MD Follow Up Appointment: History of Current Condition: Pt reports a FOOSH on ice. Seen in ED , XR appears normal..placed in a wrist brace and follow up with [facility] Pt in a thumb spica cast until 05/28/21 , placed in a removeable forearm based thumb spica , referred to OT and for MRI Significant Medical History: Medication allergies, penicillin, amoxicilin,, sulfa, codine Precautions/Contraindications: Gentle ROM, sheduled for wrist/hand MRI tomorrow Patient Goals: Get more use of my hand Hand Dominance: Right Observations: Wearing pre [place] FA based TS QuickDASH Score: 70 Prior Level of Function and Occupation Self Care, Employment, Leisure: Indep in all areas 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 most ADL including self feeding ... Writing and light activity with forearm thumb spica on, typing Sleep: Inc pain at night Driving: WFL Vision: Balance: Pain Assessment Pain Score: 7 Pain Scale Used: Numeric (0 - 10) Pain Location and Description: Constant ache, occassional numb fingers 4-7/10 Aggravating Factors: Inc with hand use and out of the thumb spica Alleviating Factors: Skin and Soft Tissue Assessment Skin and Soft Tissue: Comments: Very slight right hand and wrist edema noted Nerve assessment Ulnar Nerve: Median Nerve: Radial Nerve: Comments: MMT deferred Sensory Assessment Temperature: Light Touch: WFL Proprioception: Vibration: Comments: Neg Phalens Edema Assessment Upper Extremity: WNL Lower Extremity: Comments: Slight right hand and wrist Dexterity Assessment Dexterity: Right Impaired WFL Comments: Difficulty with writing..slow with fasteners... avoiding firm pinch etc due to pain 9 hole peg test WNL Special Tests Comments: Phalens neg 9 Hole Peg test right 23 sec left 22.5 sec AROM(PROM) Strength Cervical Cervical Flexion: Cervical Extension: Cervical Lateral Flexion: Cervical Rotation: Comments: Shoulder Flexion: Extension: Abduction: Internal Rotation: External Rotation: Comments: Flexion: Extension: Abduction: Internal Rotation: External Rotation: Comments: Elbow Flexion: Extension: Pronation: Supination: Comments: Flexion: Extension: Pronation: Supination: Comments: Wrist Flexion: Extension: Ulnar Deviation: Radial Deviation: Comments: Flexion: Extension: Ulnar Deviation: Radial Deviation: Comments: Thumb Thumb CMC Flexion: Thumb MCP Flexion: R 40 L 45 Thumb IP Flexion: R 45 L 75 Radial Abduction: R 40 L 45 [place] Abduction: R 40 L 45 [place] (Kapandji 0-10): Comments: Digits Index MCP: PIP: DIP: Long MCP: PIP: DIP: Ring MCP: PIP: DIP: Small MCP: PIP: DIP: Comments: WFL . 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 Patient demonstrates Patient verbalizes Barriers to Learning: None Readiness for Learning: Accepting Who was educated? Patient Comments: Plan of Care Assessment: Pt is a 40 yo female 10 weeks s/p FOOSH due to slipping on ice She has had prolonged immobilzation with casting and a removable thumb spica with report of slow improving pain Today she presents with mild residual hand and wrist edema and dec ROM at thumb MCP and IP jts Strength testing deferred pending MRI scheduled for tomorrow. Hand dexterity and function are limited due to injury protection and pain. 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
--- NOTE | 2021-08-20 12:08 | MHC.OT.DC ---
[address] [phone] F: [phone] Occupational Therapy Discharge Note Provider: Yajaira Hudson Diagnosis: Pain in right wrist . 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 Unable to progress ther ex due to con't mod high pain and mild edema with inc use and with ther ex Pt has made modifications with her work station and incorporating jt protection tech as she is able Dec pain at thumb MPj with composite thumb flexion . Con't ulnar wrist pain (5/10) with some improvement in ulna styloid jt effusion and inc wrist ROM noted after trial of ionto with Dex. AROM Wrist 70/65 IP jt 55 deg . 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 L 50 lb inc from 45 lb Quick DASH 47. MD follow up 09/01/21 Electronically Signed By: Rashida De Los Santos OT CHT CLT Reviewed/agree with student documentation: N/A Therapist: Please Sign and return to therapist, thank you for your referral.
== END 2021-08-20 12:08 | disposition home or self-care (01) ==
LOC: HO.OT 08:30
PROVIDERS: PCP Internal Medicine; Visit Provider Physician Assistant
DX: M25.531 Pain in right wrist (principal); M77.8 Other enthesopathies, not elsewhere classified
CPT/HCPCS: 29130; 97033; 97035; 97110; 97165; 97760

== ENCOUNTER 2021-12-14 15:00 | Outpatient (REF) | payer OTHER, SELFPAY ==
--- NOTE | ~2021-12-14 | US_ITS ---
EXAMINATION: ULTRASOUND MESENTERIC ARTERIES CLINICAL INFORMATION: Left upper quadrant pain rule out SMA or celiac axis syndrome. COMPARISON: None TECHNIQUE: Focused sonographic evaluation of the mesenteric arteries was performed employing grayscale, color and spectral Doppler techniques. FINDINGS: Aorta Peak systolic velocity proximal to the superior mesenteric artery: 96.6 cm/s Peak systolic velocity distal to superior mesenteric artery: 137 cm/s Celiac artery: Supine inspiration: 109 cm/s Supine expiration: 283 cm/s Upright inspiration: 106 cm/s Upright expiration: 121 cm/s Superior mesenteric artery: Proximal: 307 cm/s Mid: 230 cm/s Distal 111 cm/s Inferior mesenteric artery: 141 cm/s Splenic artery: 160 cm/s Hepatic artery was not visualized with certainty. US/US SMA IMPRESSION: Elevated velocity within the celiac trunk on expiration which normalizes in upright position. This may be suggestive of median arcuate ligament compression. Further evaluation could be considered with CT angiography. Elevated peak systolic velocity within the proximal superior mesenteric arteries suggestive of hemodynamically significant stenosis. This could be further evaluated with CT angiography as well.
== END 2021-12-14 15:01 | disposition home or self-care (01) ==
LOC: HO.US 15:00
PROVIDERS: PCP Internal Medicine; Visit Provider Internal Medicine Gastroenterology
DX: R10.12 Left upper quadrant pain (principal)
CPT/HCPCS: 93975; 93976

== ENCOUNTER 2022-01-19 12:01 | Day surgery (SDC) | payer OTHER, SELFPAY ==
--- NOTE | 2022-01-18 07:25 | HO.ANESPROP2 ---
Documented by User: Anastasiya Cerna NP 01/18/22 07:25 HPI - Anesthesia Eval Consult details Narrative: 41yo F for Upper Endoscopy PMFSH Active Problems Active Problems: All Active Problems (Updated 12/22/21 @ 06:27 by Graeme Nguyen MD) SMAS (superior mesenteric artery syndrome) (Acute) Malabsorption (Acute) Macrocytosis (Acute) Postprandial abdominal pain in left upper quadrant (Acute) Contact dermatitis (Acute) Persistent headaches (Acute) Right wrist tendonitis (Acute) Occult fracture of scaphoid of right wrist (Acute) Asthma (Acute) New daily persistent headache (Acute) Wrist pain, right (Acute) IUD surveillance (Acute) Physical exam (Acute) Encounter for IUD insertion (Acute) Encounter to discuss test results (Acute) control counseling (Acute) Abnormal uterine bleeding (AUB) (Acute) Rash (Acute) Irritable bowel syndrome with both constipation and diarrhea (Acute) Rash (Acute) Ruptured ovarian cyst (Acute) COVID-19 (Acute ~03/23/20) Obese (Acute) External hemorrhoids with complication (Acute) Rectal bleeding (Acute) Traumatic coccydynia (Acute) Coccydynia (Acute) Past Medical History Medical History Asthma Back pain Coccydynia COVID-19 (~03/23/20) External hemorrhoids with complication Irritable bowel syndrome with diarrhea New daily persistent headache Obese Peptic ulcer Physical exam PONV (postoperative nausea and vomiting) Rash Traumatic coccydynia Family History Family History Father Alive and well Substance use disorder Mother Family history of high blood pressure History of hip replacement Brain aneurysm Surgical History Surgical History H/O: hemorrhoidectomy History of colonoscopy Hx of excision of mass [place] teeth removed Social History Social History Household Members: Children and None Housing: House Alcohol intake: former Patient Tobacco Use Status: Never used Tobacco e-Cigarette/Vaping Use: Never Used Second Hand Smoke Exposure: No Substance Use Type: Marijuana Advance Directives: No Advance Directives Information Provided: Yes service: No Current occupational status: employed 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 Current occupational exposures/hazards: No Cognitive needs: No Hearing needs: No Vision needs: No Meds Allergies Allergy/AdvReac Type Severity Reaction Status Date / Time amoxicillin [Amoxicillin] Allergy Severe anaphylaxis Verified 12/06/21 08:42 Penicillins Allergy Severe anaphylaxis Verified 12/06/21 08:42 Sulfa (Sulfonamide Allergy Severe Hives Verified 12/06/21 08:42 Antibiotics) codeine [Codeine] Allergy Intermediate rash Verified 12/06/21 08:42 Home Medications Medication Instructions Recorded Confirmed Last Taken Type methylcellulose (laxative) 500 mg 1,000 mg PO TID 08/27/20 06/25/21 Unknown History tablet (Citrucel) sulfur-witch trinity leaf 150 mg tab PO 11/26/20 06/25/21 Unknown History tablet amitriptyline 10 mg tablet 10 mg PO BEDTIME 09/01/21 Unknown History Exam Exam Date and Time: January 18, 2022 07 Assessment and Plan Assessment Anesthesia Assessment: Chart Reviewed Documented by User: Soraya Sanchez MD 01/19/22 12:27 [facility] Past Medical History Medical History Asthma Back pain Coccydynia COVID-19 (~03/23/20) External hemorrhoids with complication Irritable bowel syndrome with diarrhea New daily persistent headache Obese Peptic ulcer Physical exam PONV (postoperative nausea and vomiting) Rash Traumatic coccydynia Family History Family History Father Alive and well Substance use disorder Mother Family history of high blood pressure History of hip replacement Brain aneurysm Surgical History Surgical History H/O: hemorrhoidectomy History of colonoscopy Hx of excision of mass [place] teeth removed History of Problems with Anesthesia: No Social History Social History Household Members: Children and None Housing: House Alcohol intake: former Patient Tobacco Use Status: Never used Tobacco e-Cigarette/Vaping Use: Never Used Second Hand Smoke Exposure: No Substance Use Type: Marijuana Advance Directives: No Advance Directives Information Provided: Yes service: No Current occupational status: employed 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 Current occupational exposures/hazards: No Cognitive needs: No Hearing needs: No Vision needs: No Meds Allergies Allergy/AdvReac Type Severity Reaction Status Date / Time amoxicillin [Amoxicillin] Allergy Severe anaphylaxis Verified 12/06/21 08:42 Penicillins Allergy Severe anaphylaxis Verified 12/06/21 08:42 Sulfa (Sulfonamide Allergy Severe Hives Verified 12/06/21 08:42 Antibiotics) codeine [Codeine] Allergy Intermediate rash Verified 12/06/21 08:42 Home Medications Medication Instructions Recorded Confirmed Last Taken Type methylcellulose (laxative) 500 mg 1,000 mg PO TID 08/27/20 06/25/21 Unknown History tablet (Citrucel) sulfur-witch trinity leaf 150 mg tab PO 11/26/20 06/25/21 Unknown History tablet amitriptyline 10 mg tablet 10 mg PO BEDTIME 09/01/21 Unknown History Exam Airway Mallampati Class: II TM Dist: >3cm Neck ROM: Full Loose/Missing/Broken Teeth: No Heart: RRR Lungs: CTA Assessment and Plan Assessment Anesthesia Assessment: Anesthesia Plan Discussed Final Anesthetic Review History of Problems with Anesthesia: No NPO: Yes ASA Class: II Final Preanesthetic Review: Meds/Allgs Chart Reviewed, Consent Obtained/Reviewed and Anes Risks/Benef Reviewed Patient Risk: Low Procedure Risk: Intermediate Anesthetic Plan Anesthetic Plan: MAC: Disposition: Standard PACU
--- NOTE | 2022-01-19 12:38 | P.HPSUR_ITS ---
Pre-Procedural Eval Section A Date of Service: 01/19/22 Section B Chief Complaint: upper abdominal pain Relevant Family History (Specify if Yes): No Relevant Social History: Other (specify) (thc) Present Medications: see Short Stay Collaborative assessment Medical History: Significant History (Asthma Back pain Coccydynia COVID-19 (~03/23/20) External hemorrhoids with complication Irritable bowel syndrome with diarrhea New daily persistent headache Obese Peptic ulcer Physical exam PONV (postoperative nausea and vomiting) Rash Traumatic coccydynia) History of Previous Operations: Relevant previous surgery/procedure and date(s) (H/O: hemorrhoidectomy History of colonoscopy Hx of excision of mass [place] teeth removed) Allergies: Allergies Allergy/AdvReac Type Severity Reaction Status Date / Time amoxicillin [Amoxicillin] Allergy Severe anaphylaxis Verified 12/06/21 08:42 Penicillins Allergy Severe anaphylaxis Verified 12/06/21 08:42 Sulfa (Sulfonamide Allergy Severe Hives Verified 12/06/21 08:42 Antibiotics) codeine [Codeine] Allergy Intermediate rash Verified 12/06/21 08:42 Review of Systems Sugical H&P ROS: Negative: Constitution, Cardiovascular, Respiratory, Neurological, Psychiatric, Hem-Onc, Allergic/Immunologic, Gastrointestinal, Genitourinary, Musculoskeletal, Integumentary, Endocrine and Eyes/Ears/Nose/Throat Exam Surgical H&P Exam: Normal: HEENT, Normal: Heart, Normal: Lungs, Normal: Extremities, Normal: Abdomen, Normal: Skin and Normal: Neurological Plan Diagnosis/Plan: Unchanged I have reviewed the history and physical and performed a pertinent physical examination on my patient. No changes have occurred unless specified.
--- NOTE | 2022-01-19 12:41 | W.PM.OPN ---
Operative Note Operative Note Date of Service: 01/19/22 Narrative: Procedure Description: EGD Indication: abdominal pain Anesthesia: MAC FLEXIBLE TRANSORAL UPPER GASTROINTESTINAL ENDOSCOPY UPPER ENDOSCOPY Consent: Indications for the procedure and potential complications of bleeding, perforation, reaction to medications and missed diagnosis were discussed with the patient and informed consent was obtained. Instrument: Olympus GIF H 190 J mid size upper endoscope Monitoring: Vital signs and clinical assessment, continuous EKG monitoring, Pulse oximetry, Carbon Dioxide monitoring and blood pressure monitoring were done throughout the procedure. Procedure: The patient was placed in the left lateral decubitis position and pre-procedure medications were administered and a bite block was placed. The endoscope was inserted into the mouth and advanced under direct vision to the third part of duodenum. A careful inspection was made as the upper endoscope was withdrawn including a retroflexed examination of the proximal stomach; Findings and interventions are described below. Findings: Larynx:normal Esophagus: GE junction at 38 cm, diaphragm hiatus at 40 cm, 2 cm sliding hiatal hernia noted, bogginess and erythema at GEJ with some salmon pink islands, bx and brushings taken for WATS, also bx from distal and proximal esophagus. schatzki ring noted as well Stomach: Patchy gastric erythema with erosions at antrum. Biopsies were obtained. Grade 2 flap valve on retroflexed examination of the cardia. Duodenum: Bulbar duodenitis, bx taken Intervention: Biopsies as noted above, brushings Impression/Findings: sliding hiatal hernia schatzki ring esophagitis erosive gastritis duodenitis PLAN: may benefit from PPI trial if not had bx also being sent for mast cell staining check nsaid hx
[2022-01-19 12:44] LABS: UPreg QC Valid YES; Urine Pregnancy NEGATIVE (NEGATIVE)
[2022-01-19 13:09] VITALS: BP 109/70; PULSE 54; RESP 16; TEMP 36.6; O2SAT 98; BMI 31.6
[2022-01-19] MEDS: Lactated Ringers 1,000 ML 100 ML IVCONT (13:29)
--- NOTE | 2022-01-19 13:32 | PC.NURSE ---
PATIENT INFORMED ABOUT RISKS OF JEWELRY AND VERBALIZED UNDERSTANDING
[2022-01-19 13:55] VITALS: BP 93/43; PULSE 55; RESP 18; TEMP 36.2; O2SAT 99
[2022-01-19 14:10] VITALS: BP 105/59; PULSE 51; RESP 18; O2SAT 97
[2022-01-19 14:25] VITALS: BP 120/82; PULSE 48; RESP 18; O2SAT 98
[2022-01-19 14:40] VITALS: BP 122/73; PULSE 51; RESP 16; O2SAT 98
[2022-01-19 14:55] VITALS: BP 128/76; PULSE 51; RESP 16; TEMP 36.3; O2SAT 99
== END 2022-01-19 15:34 | disposition home or self-care (01) ==
PROVIDERS: Nurse Practitioner; PCP Internal Medicine; Visit Provider Internal Medicine Gastroenterology
PROC: 0DJ08ZZ Inspection of Upper Intestinal Tract, Via Natural or Artificial Opening Endoscopic (ICD-10-PCS; CPT 43235; principal; 2022-01-19 14:30)
DX: R10.12 Left upper quadrant pain (principal); K29.50 Unspecified chronic gastritis without bleeding; K22.2 Esophageal obstruction; K20.80 Other esophagitis without bleeding; K29.80 Duodenitis without bleeding; K44.9 Diaphragmatic hernia without obstruction or gangrene; K64.4 Residual hemorrhoidal skin tags; K58.0 Irritable bowel syndrome with diarrhea; J45.909 Unspecified asthma, uncomplicated; M53.3 Sacrococcygeal disorders, not elsewhere classified; R51.9 Headache, unspecified; E66.9 Obesity, unspecified; Z79.899 Other long term (current) drug therapy; Z88.0 Allergy status to penicillin; Z88.2 Allergy status to sulfonamides; Z88.8 Allergy status to other drugs, medicaments and biological substances; F12.90 Cannabis use, unspecified, uncomplicated; Z87.11 Personal history of peptic ulcer disease; Z87.828 Personal history of other (healed) physical injury and trauma; Z86.16 Personal history of COVID-19
CPT/HCPCS: 43239; 81025; 88305; 88341; 88342

== ENCOUNTER 2022-02-25 08:58 | Outpatient (REF) | payer OTHER, SELFPAY ==
[2022-02-25] MEDS: iohexoL 350 MG/ML 100 ML INFUS..BTL IV (09:49)
== END 2022-02-25 08:59 | disposition home or self-care (01) ==
LOC: HO.CT 08:58
PROVIDERS: Visit Provider Internal Medicine Gastroenterology
DX: K55.1 Chronic vascular disorders of intestine (principal)
CPT/HCPCS: 74174; Q9967

== ENCOUNTER 2022-03-09 15:01 | Emergency (ER) | payer OTHER, SELFPAY ==
--- NOTE | ~2022-03-09 | CT_ITS ---
EXAMINATION: CT ABDOMEN AND PELVIS WITHOUT CONTRAST CLINICAL INFORMATION: Severe left-sided abdominal pain. COMPARISON: Abdominal ultrasound from earlier today. CTA abdomen pelvis 02/25/2022. TECHNIQUE: Multidetector volumetric imaging was performed from the superior aspect of the liver through the pubic symphysis. Sagittal and coronal reformatted images were obtained on the technologist's workstation. This CT examination was performed using dose optimization techniques as appropriate, variously including the following: *Automated exposure control *Adjustment of mA and/or kV according to patient size (this includes techniques or standardized protocols for targeted exams where dose is matched to indication/reason for exam; i.e. extremities or head) *Use of iterative reconstruction technique DLP: 701 mGy-cm FINDINGS: LUNG BASES: No focal consolidation or pleural effusion. LIVER, GALLBLADDER, AND BILIARY TREE: The liver is normal in size, shape, and attenuation. No focal hepatic lesion or biliary ductal dilatation is present. The gallbladder is unremarkable with no evidence of radiopaque gallstones, gallbladder wall thickening, or obvious pericholecystic inflammatory changes. PANCREAS: Equivocal minimal fat stranding adjacent to the proximal pancreas in the root of the mesentery (3:28). The main pancreatic duct is nondilated. SPLEEN: Unremarkable. ADRENAL GLANDS: Unremarkable. KIDNEYS AND URETERS: The kidneys are normal in size, shape, and attenuation. No hydronephrosis, hydroureter, or calculi seen. No perinephric stranding. BLADDER: Partially underdistended limiting its evaluation. GASTROINTESTINAL TRACT: The stomach and small bowel are nondilated. Normal appendix. Mild diverticulosis. No pericolonic inflammatory changes or evidence of bowel obstruction. ABDOMINAL WALL: No significant hernia is appreciated. LYMPH NODES: No pathologically enlarged lymph nodes. VASCULAR: The abdominal aorta is of normal diameter. PELVIC VISCERA: IUD in similar positioning to prior. Dominant follicles heel in the left ovary. No free fluid. OSSEOUS STRUCTURES: No acute or aggressive appearing osseous abnormalities. CT/CT abdomen pelvis wo IV con IMPRESSION: 1. Equivocal minimal fat stranding adjacent to the proximal pancreas in the root of the mesentery. Correlate clinically for pancreatitis. 2. Mild diverticulosis but no evidence of acute diverticulitis.
--- NOTE | ~2022-03-09 | US_ITS ---
EXAMINATION: US ABDOMEN LIMITED CLINICAL INFORMATION: Left upper quadrant pain and nausea. COMPARISON: None TECHNIQUE: Real-time imaging of the right upper quadrant abdominal viscera. FINDINGS: PANCREAS: Normal. Spleen: The spleen is normal size and homogeneous in echo texture. It measures 8.83 seen in length. A small accessory splenule is seen measuring 1.1 cm. Left KIDNEY: Normal. No hydronephrosis. No renal calculi or focal parenchymal lesions. The kidney measures 9.9 cm in maximum dimension. FREE FLUID: None. US/US abdomen limited IMPRESSION: Unremarkable limited left upper quadrant ultrasound.
--- NOTE | 2022-03-09 15:20 | ED_ITS ---
HPI - Abdominal Pain General Chief Complaint: Abdominal Pain <LADY Velásquez - Last Filed: 03/09/22 15:25> Stated Complaint: Stomach Pain <LADY Velásquez - Last Filed: 03/09/22 15:25> Time Seen by Provider: 03/09/22 23:18 <LADY Velásquez - Last Filed: 03/09/22 15:25> Source: patient <Taylor Culver MD - Last Filed: 03/10/22 00:27> Mode of arrival: ambulatory <Taylor Culver MD - Last Filed: 03/10/22 00:27> Limitations: no limitations <Taylor Culver MD - Last Filed: 03/10/22 00:27> History of Present Illness HPI narrative: 41-year-old female came in for evaluation of left side abdominal pain. Left-sided abdominal pain started about a month ago pain started to get severe about 5 days ago today patient felt the pain as very severe 10/10 and felt like almost something popped inside her stomach, patient had 1 vomiting yesterday but today only feel nauseous, no fever, no chills, normal bowel movement this morning, no dysuria, no frequency urination, no vaginal discharge or bleed. Patient had GI is show had been following with Dr. Nguyen patient had recent upper endoscopy which were consistent with gastritis and patient was started on PPI by GI patient still in the process of workup for her chronic abdominal pain by GI. <Taylor Culver MD - Last Filed: 03/10/22 00:27> Related Data Home Medications: Home Medications Medication Instructions Recorded Confirmed methylcellulose (laxative) 500 mg 1,000 mg PO TID 08/27/20 06/25/21 tablet (Citrucel) sulfur-witch trinity leaf 150 mg tab PO 11/26/20 06/25/21 tablet amitriptyline 10 mg tablet 10 mg PO BEDTIME 09/01/21 Previous Rx's Medication Instructions Recorded hqfiqfmysr-jzcbqcsbypiox-stxvxtqk 0.5 - 1 tab PO Q6H PRN pain #8 tabs 06/25/21 50 mg-325 mg-40 mg tablet dicyclomine 20 mg tablet 20 mg PO QID #360 tabs 07/06/21 betamethasone dipropionate 0.05 % 1 appl topical BID PRN skin 07/09/21 topical ointment irritation/allergy 14 days #45 grams sennosides 8.6 mg tablet (senna) 17.2 mg PO BEDTIME for 01/05/22 constipation #60 tabs famotidine 40 mg tablet 40 mg PO BEDTIME #90 tabs 01/26/22 pantoprazole 40 mg tablet,delayed 40 mg PO DAILY #90 tabs 01/26/22 release escitalopram oxalate 10 mg tablet 10 mg PO DAILY 90 days #90 tabs 03/09/22 <LADY Velásquez - Last Filed: 03/09/22 15:25> Allergies/Adverse Reactions: Allergies Allergy/AdvReac Type Severity Reaction Status Date / Time amoxicillin [Amoxicillin] Allergy Severe anaphylaxis Verified 12/06/21 08:42 Penicillins Allergy Severe anaphylaxis Verified 12/06/21 08:42 Sulfa (Sulfonamide Allergy Severe Hives Verified 12/06/21 08:42 Antibiotics) codeine [Codeine] Allergy Intermediate rash Verified 12/06/21 08:42 <LADY Velásquez - Last Filed: 03/09/22 15:25> Review of Systems Review of Systems All other systems are reviewed and are negative Constitutional: Reports as per HPI and Reports no additional constitutional complaints Eyes: Reports as per HPI and Reports no additional eye complaints Reports system reviewed and no additional complaints, except as documented Cardiovascular: Reports as per HPI and Reports no additional cardiovascular complaints Respiratory: Reports as per HPI and Reports no additional respiratory complaints Gastrointestinal: Reports as per HPI and Reports no additional gastrointestinal complaints Genitourinary: Reports no additional female genitourinary complaints Musculoskeletal: Reports no additional musculoskeletal complaints Skin/Breast: Reports system reviewed and no additional complaints, except as docu Psychiatric: Reports no additional psychiatric complaints Endocrine: Reports no additional endocrine complaints Hematologic/Lymphatic: Reports no additional hematologic/lymphatic complaints Allergic/Immunologic: Reports no additional allergic/immunologic complaints Reports system reviewed and no additional complaints, except as documented and Reports Abnormal speech present <Taylor Culver MD - Last Filed: 03/10/22 00:27> PMFSH Past Medical History Medical History: Medical History Asthma Back pain Coccydynia COVID-19 (~03/23/20) External hemorrhoids with complication Irritable bowel syndrome with diarrhea New daily persistent headache Obese Peptic ulcer Physical exam PONV (postoperative nausea and vomiting) Rash Traumatic coccydynia <LADY Velásquez - Last Filed: 03/09/22 15:25> Surgical History: Surgical History H/O: hemorrhoidectomy History of colonoscopy Hx of excision of mass [place] teeth removed <LADY Vleásquez - Last Filed: 03/09/22 15:25> Family History Family History: Family History Father Alive and well Substance use disorder Mother Family history of high blood pressure History of hip replacement Brain aneurysm <LADY Velásquez - Last Filed: 03/09/22 15:25> Social History Social History: Social History Household Members: Children and None Housing: House Alcohol intake: former Patient Tobacco Use Status: Never used Tobacco e-Cigarette/Vaping Use: Never Used Second Hand Smoke Exposure: No Substance Use Type: Marijuana Advance Directives: No Advance Directives Information Provided: Yes service: No Current occupational status: employed 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 Current occupational exposures/hazards: No Cognitive needs: No Hearing needs: No Vision needs: No <LADY Velásquez - Last Filed: 03/09/22 15:25> Physical Exam ED Vital Signs: Vital Signs - 24 hr 03/09/22 15:21 03/09/22 23:47 Temperature 98.2 F 98.6 F Pulse Rate 92 56 Respiratory Rate 18 18 Blood Pressure 116/71 124/79 Pulse Oximetry 99 97 Oxygen Delivery Method Room Air Room Air BMI result Body Mass Index 33.3 <LADY Velásquez - Last Filed: 03/09/22 15:25> Vital Signs - 24 hr 03/09/22 15:21 03/09/22 23:47 Temperature 98.2 F 98.6 F Pulse Rate 92 56 Respiratory Rate 18 18 Blood Pressure 116/71 124/79 Pulse Oximetry 99 97 Oxygen Delivery Method Room Air Room Air BMI result Body Mass Index 33.3 vital signs have been reviewed as appeared to be correct. Blood pressure normal. Heart rate normal. Respiration rate normal. Temperature normal. Oxygen saturation normal. <Taylor Culver MD - Last Filed: 03/10/22 00:27> Appearance: Alert. Oriented X3. No acute distress. Head: Normal external exam. Normocephalic. Atraumatic. No Dye signs noted. No raccoon eyes noted Eyes: PERRLA. EOMI. Conjunctiva and sclera normal. Eyelids normal. ENT: TM's Normal. Pharynx normal. Uvula midline. Moist mucous membranes. No trismus noted. No drooling noted. No muffled voice noted. Neck: Normal inspection. Neck supple. FROM. No adenopathy. Thyroid Normal. No meningeal signs. No neck mass noted. CVS: Normal heart rate and rhythm. Heart sound normal. No murmurs noted. Pulses normal throughout. Respiratory: No respiratory distress. Painless inspiration. Breath sounds normal. No wheezes/rales/rhonchi noted. Chest nontender. No accessory muscle usage noted or decreased air movement noted. Abdomen: Soft , mild left upper quadrant tenderness, no rebound tenderness, no guarding. Bowel sounds normal in all 4 quadrants. No distention noted. No organomegaly noted. No visible injury noted. Back: No CVA tenderness. Full range of motion noted. Skin: Skin warm and dry. Normal skin color. Normal skin turgor. No rashes/lesions/lacerations noted. Extremities: No lower extremity edema. Extremities exhibit normal range of motion. Extremities nontender. Neuro: Oriented X 3. Cranial nerve exam: II-XII are grossly intact No motor deficit. No sensory deficit. Reflexes normal. <Taylor Culver MD - Last Filed: 03/10/22 00:27> Course Course Course Narrative: RME--41-year-old female with a past medical history of asthma, IBS, PUD, patient of Dr. Wills with recent CT angio, presenting to the ED presenting to the ED complaining of left upper abdominal pain radiating to left back and feeling something popped after getting out of the shower this morning. Admits to associated nausea. Denies fever, chills, vomiting, diarrhea, hematuria Abdomen soft with left upper quadrant and left CVA tenderness noted Labs, UA, abdomen ultrasound ordered <LADY Velásquez - Last Filed: 03/09/22 15:25> Reevaluation(s) Reevaluation #1: acute on chronic left abdominal pain, patient already follow-up with GI, patient has unremarkable workup for abdominal pain in the ED CT abdomen and pelvis is equivocal for mild stranding around the pancreas however patient with a normal lipase level., feels better after IM injection of morphine, patient is scheduled to see her GI doctor this week. <Taylor Culver MD - Last Filed: 03/10/22 00:27> Time: 00:25 <Taylor Culver MD - Last Filed: 03/10/22 00:27> Medical Decision Making Differential Diagnosis Differential Diagnoses: The differential diagnosis associated with the presentation includes ( Perforated viscus, gastritis, diverticulitis, pancreatitis, kidney stone, left pyelonephritis, UTI, abnormal ) <Taylor Culver MD - Last Filed: 03/10/22 00:27> Lab Data MDM Lab Attestation statement: I reviewed the patient's lab results. <Taylor Culver MD - Last Filed: 03/10/22 00:27> Result Diagrams: : 03/09/22 16:36 03/09/22 16:36 <LADY Velásquez - Last Filed: 03/09/22 15:25> Labs: Lab Results 03/09/22 03/09/22 03/09/22 Range/Units 16:36 16:36 16:42 WBC 10.1 (4.8-10.8) X10*3/uL RBC 3.89 L (4.20-5.50) X10*6/uL Hgb 12.8 (12.0-16.0) g/dl Hct 38.3 (37.0-47.0) % MCV 98.5 H (80.0-98.0) fL MCH 32.9 (27.0-33.0) pg MCHC 33.4 (31.0-35.0) g/dl RDW 13.2 (11.0-16.0) % Plt Count 248 (160-400) X10*3/uL MPV 9.4 (9.4-12.3) fL Immature Gran % (Auto) 0.2 (0.0-0.4) % Neut % (Auto) 50.4 (45-73) % Lymph % (Auto) 39.5 (20-40) % [place] % (Auto) 6.2 (2-11) % Eos % (Auto) 3.3 (0-4) % Baso % (Auto) 0.4 (0-2) % Lymph # (Auto) 4.0 (1.2-4.9) X10*3/uL [place] # (Auto) 0.6 (0.1-1.2) X10*3/uL Eos # (Auto) 0.3 (0.0-0.4) X10*3/uL Baso # (Auto) 0.0 (0.0-0.2) X10*3/uL Abs Immat Gran (auto) 0.02 (0.00-0.03) X10*3/uL Absolute Neuts (auto) 5.1 (2.0-8.3) x10*3/uL Absolute Nucleated RBC 0.000 (0.0-0.012) X10*3/uL Nucleated RBC % (auto) 0.0 (0.0-0.2) /100WBC Sodium 136 (135-145) mmol/L Potassium 4.1 (3.3-5.1) mmol/L Chloride 104 (96-108) mmol/L Carbon Dioxide 28 (22-29) mmol/L Anion Gap 8 L (12-20) BUN 10 (9-16) mg/dL Creatinine 0.74 (0.5-1.4) mg/dL Estim Creat Clear Calc 109.1 Estimated GFR > 60 Random Glucose 86 (60-115) mg/dL Calcium 8.7 (8.4-10.2) mg/dL Magnesium 2.0 (1.6-2.6) mg/dL Total Bilirubin 0.2 (0.0-1.0) mg/dL Direct Bilirubin < 0.2 (0.0-0.5) mg/dL AST 16 (5-31) U/L ALT 9 (0-31) U/L Alkaline Phosphatase 72 (39-117) U/L Total Protein 6.5 (6.5-8.0) g/dL Albumin 4.0 (3.5-5.0) g/dL Lipase 23 (8-78) U/L Urine Color Yellow Urine Appearance Clear Urine pH 5.5 (5.0-9.0) Ur Specific [place] 1.025 (1.005-1.025) Urine Protein Negative (Neg-Trace) mg/dL Urine Glucose (UA) Negative (Negative) mg/dL Urine Ketones Negative (Negative) mg/dL Urine Blood Negative (Negative) Urine Nitrite Negative (Negative) Ur Leukocyte Esterase Negative (Negative) Urine Test (NEGATIVE) 03/09/22 Range/Units 16:42 WBC (4.8-10.8) X10*3/uL RBC (4.20-5.50) X10*6/uL Hgb (12.0-16.0) g/dl Hct (37.0-47.0) % MCV (80.0-98.0) fL MCH (27.0-33.0) pg MCHC (31.0-35.0) g/dl RDW (11.0-16.0) % Plt Count (160-400) X10*3/uL MPV (9.4-12.3) fL Immature Gran % (Auto) (0.0-0.4) % Neut % (Auto) (45-73) % Lymph % (Auto) (20-40) % [place] % (Auto) (2-11) % Eos % (Auto) (0-4) % Baso % (Auto) (0-2) % Lymph # (Auto) (1.2-4.9) X10*3/uL [place] # (Auto) (0.1-1.2) X10*3/uL Eos # (Auto) (0.0-0.4) X10*3/uL Baso # (Auto) (0.0-0.2) X10*3/uL Abs Immat Gran (auto) (0.00-0.03) X10*3/uL Absolute Neuts (auto) (2.0-8.3) x10*3/uL Absolute Nucleated RBC (0.0-0.012) X10*3/uL Nucleated RBC % (auto) (0.0-0.2) /100WBC Sodium (135-145) mmol/L Potassium (3.3-5.1) mmol/L Chloride (96-108) mmol/L Carbon Dioxide (22-29) mmol/L Anion Gap (12-20) BUN (9-16) mg/dL Creatinine (0.5-1.4) mg/dL Estim Creat Clear Calc Estimated GFR Random Glucose (60-115) mg/dL Calcium (8.4-10.2) mg/dL Magnesium (1.6-2.6) mg/dL Total Bilirubin (0.0-1.0) mg/dL Direct Bilirubin (0.0-0.5) mg/dL AST (5-31) U/L ALT (0-31) U/L Alkaline Phosphatase (39-117) U/L Total Protein (6.5-8.0) g/dL Albumin (3.5-5.0) g/dL Lipase (8-78) U/L Urine Color Urine Appearance Urine pH (5.0-9.0) Ur Specific [place] (1.005-1.025) Urine Protein (Neg-Trace) mg/dL Urine Glucose (UA) (Negative) mg/dL Urine Ketones (Negative) mg/dL Urine Blood (Negative) Urine Nitrite (Negative) Ur Leukocyte Esterase (Negative) Urine Test NEGATIVE (NEGATIVE) <LADY Velásquez - Last Filed: 03/09/22 15:25> Lab Results 03/09/22 03/09/22 03/09/22 Range/Units 16:36 16:36 16:42 WBC 10.1 (4.8-10.8) X10*3/uL RBC 3.89 L (4.20-5.50) X10*6/uL Hgb 12.8 (12.0-16.0) g/dl Hct 38.3 (37.0-47.0) % MCV 98.5 H (80.0-98.0) fL MCH 32.9 (27.0-33.0) pg MCHC 33.4 (31.0-35.0) g/dl RDW 13.2 (11.0-16.0) % Plt Count 248 (160-400) X10*3/uL MPV 9.4 (9.4-12.3) fL Immature Gran % (Auto) 0.2 (0.0-0.4) % Neut % (Auto) 50.4 (45-73) % Lymph % (Auto) 39.5 (20-40) % [place] % (Auto) 6.2 (2-11) % Eos % (Auto) 3.3 (0-4) % Baso % (Auto) 0.4 (0-2) % Lymph # (Auto) 4.0 (1.2-4.9) X10*3/uL [place] # (Auto) 0.6 (0.1-1.2) X10*3/uL Eos # (Auto) 0.3 (0.0-0.4) X10*3/uL Baso # (Auto) 0.0 (0.0-0.2) X10*3/uL Abs Immat Gran (auto) 0.02 (0.00-0.03) X10*3/uL Absolute Neuts (auto) 5.1 (2.0-8.3) x10*3/uL Absolute Nucleated RBC 0.000 (0.0-0.012) X10*3/uL Nucleated RBC % (auto) 0.0 (0.0-0.2) /100WBC Sodium 136 (135-145) mmol/L Potassium 4.1 (3.3-5.1) mmol/L Chloride 104 (96-108) mmol/L Carbon Dioxide 28 (22-29) mmol/L Anion Gap 8 L (12-20) BUN 10 (9-16) mg/dL Creatinine 0.74 (0.5-1.4) mg/dL Estim Creat Clear Calc 109.1 Estimated GFR > 60 Random Glucose 86 (60-115) mg/dL Calcium 8.7 (8.4-10.2) mg/dL Magnesium 2.0 (1.6-2.6) mg/dL Total Bilirubin 0.2 (0.0-1.0) mg/dL Direct Bilirubin < 0.2 (0.0-0.5) mg/dL AST 16 (5-31) U/L ALT 9 (0-31) U/L Alkaline Phosphatase 72 (39-117) U/L Total Protein 6.5 (6.5-8.0) g/dL Albumin 4.0 (3.5-5.0) g/dL Lipase 23 (8-78) U/L Urine Color Yellow Urine Appearance Clear Urine pH 5.5 (5.0-9.0) Ur Specific [place] 1.025 (1.005-1.025) Urine Protein Negative (Neg-Trace) mg/dL Urine Glucose (UA) Negative (Negative) mg/dL Urine Ketones Negative (Negative) mg/dL Urine Blood Negative (Negative) Urine Nitrite Negative (Negative) Ur Leukocyte Esterase Negative (Negative) Urine Test (NEGATIVE) 03/09/22 Range/Units 16:42 WBC (4.8-10.8) X10*3/uL RBC (4.20-5.50) X10*6/uL Hgb (12.0-16.0) g/dl Hct (37.0-47.0) % MCV (80.0-98.0) fL MCH (27.0-33.0) pg MCHC (31.0-35.0) g/dl RDW (11.0-16.0) % Plt Count (160-400) X10*3/uL MPV (9.4-12.3) fL Immature Gran % (Auto) (0.0-0.4) % Neut % (Auto) (45-73) % Lymph % (Auto) (20-40) % [place] % (Auto) (2-11) % Eos % (Auto) (0-4) % Baso % (Auto) (0-2) % Lymph # (Auto) (1.2-4.9) X10*3/uL [place] # (Auto) (0.1-1.2) X10*3/uL Eos # (Auto) (0.0-0.4) X10*3/uL Baso # (Auto) (0.0-0.2) X10*3/uL Abs Immat Gran (auto) (0.00-0.03) X10*3/uL Absolute Neuts (auto) (2.0-8.3) x10*3/uL Absolute Nucleated RBC (0.0-0.012) X10*3/uL Nucleated RBC % (auto) (0.0-0.2) /100WBC Sodium (135-145) mmol/L Potassium (3.3-5.1) mmol/L Chloride (96-108) mmol/L Carbon Dioxide (22-29) mmol/L Anion Gap (12-20) BUN (9-16) mg/dL Creatinine (0.5-1.4) mg/dL Estim Creat Clear Calc Estimated GFR Random Glucose (60-115) mg/dL Calcium (8.4-10.2) mg/dL Magnesium (1.6-2.6) mg/dL Total Bilirubin (0.0-1.0) mg/dL Direct Bilirubin (0.0-0.5) mg/dL AST (5-31) U/L ALT (0-31) U/L Alkaline Phosphatase (39-117) U/L Total Protein (6.5-8.0) g/dL Albumin (3.5-5.0) g/dL Lipase (8-78) U/L Urine Color Urine Appearance Urine pH (5.0-9.0) Ur Specific [place] (1.005-1.025) Urine Protein (Neg-Trace) mg/dL Urine Glucose (UA) (Negative) mg/dL Urine Ketones (Negative) mg/dL Urine Blood (Negative) Urine Nitrite (Negative) Ur Leukocyte Esterase (Negative) Urine Test NEGATIVE (NEGATIVE) <Taylor Culver MD - Last Filed: 03/10/22 00:27> Independent Interpretation I performed an independent interpretation of an: CT Scan ( abdomen and pelvis: No acute intra-abdominal pathology.) <Taylor Culver MD - Last Filed: 03/10/22 00:27> Radiology Impression Discussion of test interpretation with radiology: I have reviewed the radiologist's reading. (1. Equivocal minimal fat stranding adjacent to the proximal pancreas in the root of the mesentery. Correlate clinically for pancreatitis. 2. Mild diverticulosis but no evidence of acute diverticulitis. ) <Taylor Culver MD - Last Filed: 03/10/22 00:27> Medications Administered Discontinued Medications Generic Name Dose Route Start Last Admin Trade Name Freq PRN Reason Stop Dose Admin Morphine Sulfate 4 mg 03/09/22 23:32 03/09/22 23:47 Morphine Sulfate 4 Mg/Ml Cartridge IM 03/09/22 23:33 4 mg ONCE ONE Administration Protocol <LADY Velásquez - Last Filed: 03/09/22 15:25> Medications Administered Discontinued Medications Generic Name Dose Route Start Last Admin Trade Name Freq PRN Reason Stop Dose Admin Morphine Sulfate 4 mg 03/09/22 23:32 03/09/22 23:47 Morphine Sulfate 4 Mg/Ml Cartridge IM 03/09/22 23:33 4 mg ONCE ONE Administration Protocol <Taylor Culver MD - Last Filed: 03/10/22 00:27> Discharge Plan Discharge Clinical Impression: Abdominal pain <LADY Velásquez - Last Filed: 03/09/22 15:25> Patient Disposition: Home, Self-Care <LADY Velásquez - Last Filed: 03/09/22 15:25> Instructions: Abdominal Pain (ED) <LADY Velásquez - Last Filed: 03/09/22 15:25> Prescriptions: No Action dicyclomine 20 mg tablet 20 mg PO QID Qty: 360 2RF sennosides [senna] 8.6 mg tablet 17.2 mg PO BEDTIME Qty: 60 6RF pantoprazole 40 mg tablet,delayed release (DR/EC) 40 mg PO DAILY Qty: 90 1RF famotidine 40 mg tablet 40 mg PO BEDTIME Qty: 90 1RF escitalopram oxalate 10 mg tablet 10 mg PO DAILY 90 Days Qty: 90 1RF Citrucel 500 mg tablet 1,000 mg PO TID ypryldgkto-yhagmbzkbkxjj-vkue 50-325-40 mg tablet 0.5 - 1 tab PO Q6H PRN (Reason: pain) Qty: 8 0RF betamethasone dipropionate 0.05 % ointment 1 appl topical BID PRN (Reason: skin irritation/allergy) 14 Days Qty: 45 1RF sulfur-witch trinity leaf 150 mg tablet PO amitriptyline 10 mg tablet 10 mg PO BEDTIME <LADY Velásquez - Last Filed: 03/09/22 15:25> Referrals: Graeme Nguyen MD [Physician] - Regina Sullivan MD [Primary Care Provider] - <LADY Velásquez - Last Filed: 03/09/22 15:25> Stand Alone Forms: Work/School Release <LADY Velásquez - Last Filed: 03/09/22 15:25>
[2022-03-09 15:21] VITALS: BP 116/71; PULSE 92; RESP 18; TEMP 36.8; O2SAT 99; BMI 33.3
[2022-03-09 16:51] LABS: MANUAL DIFF FLAG NO
[2022-03-09 16:53] LABS: Basophils Percent Auto 0.4 % (0-2); Eosinophils Absolute Auto 0.3 X10*3/uL (0.0-0.4); Eosinophils Percent Auto 3.3 % (0-4); Hematocrit 38.3 % (37.0-47.0); Hemoglobin 12.8 g/dl (12.0-16.0); Imm Gran Abs Auto 0.02 X10*3/uL (0.00-0.03); Imm Gran Pct Auto 0.2 % (0.0-0.4); Lymphocytes Percent Auto 39.5 % (20-40); Mean Corpuscular HGB Conc 33.4 g/dl (31.0-35.0); Mean Corpuscular Hemoglobin 32.9 pg (27.0-33.0); Mean Corpuscular Volume 98.5 fL (80.0-98.0); Mean Platelet Volume 9.4 fL (9.4-12.3); Monocytes Absolute Auto 0.6 X10*3/uL (0.1-1.2); Monocytes Percent Auto 6.2 % (2-11); Neutrophils Absolute Auto 5.1 x10*3/uL (2.0-8.3); Neutrophils Percent Auto 50.4 % (45-73); Platelet Count 248 X10*3/uL (160-400); Red Blood Count 3.89 X10*6/uL (4.20-5.50); Red Cell Distribution Width 13.2 % (11.0-16.0); White Blood Count 10.1 X10*3/uL (4.8-10.8)
[2022-03-09 16:55] LABS: Appearance Urine Clear; Color Urine Yellow; Glucose Urine UA Negative (Negative); Leukocyte Esterase Urine Negative (Negative); Nitrite Urine Negative (Negative); PH 5.5 (5.0-9.0); Specific Gravity - Urine 1.025 (1.005-1.025); Urine Blood Negative (Negative); Urine Ketones Negative (Negative); Urine Protein Negative (Neg-Trace)
[2022-03-09 16:57] LABS: UPreg QC Valid YES; Urine Pregnancy NEGATIVE (NEGATIVE)
[2022-03-09 17:23] LABS: Alanine Aminotransferase 9 U/L (0-31); Alkaline Phosphatase 72 U/L (39-117); Anion Gap 8 (12-20); Aspartate Amino Transferase 16 U/L (5-31); Bilirubin Direct < 0.2 mg/dL (0.0-0.5); Bilirubin Total 0.2 mg/dL (0.0-1.0); Blood Urea Nitrogen 10 mg/dL (9-16); Calcium 8.7 mg/dL (8.4-10.2); Carbon Dioxide 28 mmol/L (22-29); Chloride 104 mmol/L (96-108); Creatinine Clr Calc Pharmacy 109.1; Estimated Glomerular Filt Rate > 60; Glucose Random 86 mg/dL (60-115); Lipase 23 U/L (8-78); Potassium 4.1 mmol/L (3.3-5.1); Sodium 136 mmol/L (135-145); Total Protein 6.5 g/dL (6.5-8.0)
[2022-03-09 23:47] VITALS: BP 124/79; PULSE 56; RESP 18; TEMP 37; O2SAT 97
[2022-03-09] MEDS: Morphine Sulfate 4 MG/ML CARTRIDGE IM (23:47)
== END 2022-03-10 01:37 | disposition home or self-care (01) ==
PROVIDERS: Physician Assistant; Emergency Provider Emergency Medicine; PCP Internal Medicine
DX: R10.9 Unspecified abdominal pain (principal); F12.90 Cannabis use, unspecified, uncomplicated
CPT/HCPCS: 36415; 74176; 76705; 80048; 80076; 81003; 81025; 83690; 83735; 85025; 96372; 99284; J2270

== ENCOUNTER → 2022-03-21 11:56 | Outpatient (BNVA) | payer OTHER, SELFPAY | PROVIDERS: PCP Internal Medicine; Visit Provider Internal Medicine Gastroenterology | DX: Z13.89 Encounter for screening for other disorder (principal) ==

== ENCOUNTER 2022-03-28 08:20 | Outpatient (REF) | payer OTHER, SELFPAY ==
[2022-03-28 13:59] LABS: CT PCR NOT DETECTED (Not Detect.); NG PCR NOT DETECTED (Not Detect.)
[2022-04-01 05:13] LABS: HPV mRNA E6/E7 rflx Not Detected (Not Detected)
== END 2022-03-28 08:21 | disposition home or self-care (01) ==
LOC: HO.LNP 08:20
PROVIDERS: PCP Internal Medicine; Visit Provider Advanced Practice Midwife
DX: Z01.419 Encounter for gynecological examination (general) (routine) without abnormal findings (principal); Z11.3 Encounter for screening for infections with a predominantly sexual mode of transmission; Z97.5 Presence of (intrauterine) contraceptive device
CPT/HCPCS: 0353U; 87624; 88142

== ENCOUNTER → 2022-03-30 08:15 | Outpatient (REF) | payer OTHER, SELFPAY ==
--- NOTE | ~2022-03-30 | NM_ITS ---
EXAMINATION: MS RADIONUCLIDE SOLID FOOD GASTRIC EMPTYING 4-HOUR STUDY CLINICAL INFORMATION: Early satiety. COMPARISON: None TECHNIQUE: A standard meal consisting of 4 oz of Egg Beaters brand tagged with 1000 microcuries Tc-99m Sulfur Colloid, 8 oz water and 2 slices of toast with jelly was administered orally to the patient. Images were obtained using a dual head gamma camera in the anterior and posterior projections over of the stomach immediately post ingestion and at hourly intervals up to 4 hours post ingestion. The anterior and posterior counts at each time interval were averaged using the geometric mean and expressed as percentage of the immediate post ingestion counts. FINDINGS: There is good visualization of activity in the stomach immediately post ingestion. As the study progresses, there is good clearance of activity from the stomach and visualization of progressively increasing small bowel activity. By the end of the study, there is almost no retention noted in the stomach. Retention in the stomach at each time interval was: 1 hour 47% (normal 37%-90%) 2 hours 2% (normal 30%-60%) 3 hours 1% 4 hours-was not performed since only 1% was retained at 3 hours(normal 0%-10%). MS/MS gastric emptying study IMPRESSION: Normal 4-hour solid food gastric emptying study. (For solid meal, rapid gastric emptying is less than 30% at 60 minutes. Delayed gastric emptying criteria is more than 60% remaining at 120 minutes or more than 10% at 240 minutes. The 4-hour value is the best discriminator of a normal or abnormal result).
== END ==
LOC: HO.NUCMED 08:15
PROVIDERS: PCP Internal Medicine; Visit Provider Internal Medicine Gastroenterology
DX: R68.81 Early satiety (principal)
CPT/HCPCS: 78264; A9541

== ENCOUNTER 2022-05-21 08:41 | Outpatient (REF) | payer OTHER, SELFPAY ==
--- NOTE | ~2022-05-21 | MM_ITS ---
EXAMINATION: MM SCREENING DIGITAL BREAST TOMOSYNTHESIS, BILATERAL CLINICAL INFORMATION: Screening. Asymptomatic. The lifetime risk of breast cancer based on the Tyrer-Cuzick Model is 12%. COMPARISON: Mammography: 05/15/2021, 05/04/2020, 04/29/2019 TECHNIQUE: Digital breast tomosynthesis is performed in both the craniocaudal and mediolateral oblique views along with computer-aided detection (CAD). Synthesized 2D images are generated from the tomosynthesis. FINDINGS: There are scattered areas of fibroglandular density (ACR BI-RADS breast composition Category b). Breast tissue composition borders on predominantly fatty. No architectural abnormality or developing density. There are no significant masses, abnormal calcifications, or other abnormalities. The axilla and skin contours are unremarkable. MM/MM tomosynthesis screening BI IMPRESSION: No mammographic evidence of malignancy. ASSESSMENT: BI-RADS 1: Negative RECOMMENDATION: Routine annual mammography screening. This patient's information was entered into a reminder system with a target due date for their next mammogram.
== END 2022-05-21 08:42 | disposition home or self-care (01) ==
LOC: HO.MAMMO 08:41
PROVIDERS: PCP Internal Medicine; Visit Provider Internal Medicine
DX: Z12.31 Encounter for screening mammogram for malignant neoplasm of breast (principal)
CPT/HCPCS: 77063; 77067

== ENCOUNTER 2022-06-24 09:24 | Emergency (ER) | payer OTHER, SELFPAY ==
--- NOTE | ~2022-06-24 | CT_ITS ---
EXAMINATION: CT ABDOMEN AND PELVIS WITH CONTRAST CLINICAL INFORMATION: Epigastric left upper quadrant pain COMPARISON: 03/09/2022 TECHNIQUE: Multidetector volumetric images were obtained from the superior aspect of the liver through the pubic symphysis following administration 85 mL of Omnipaque 350 intravenous contrast. Sagittal and coronal reformatted images were obtained on the technologist's workstation. Oral contrast: No This CT examination was performed using dose optimization techniques as appropriate, variously including the following: *Automated exposure control *Adjustment of mA and/or kV according to patient size (this includes techniques or standardized protocols for targeted exams where dose is matched to indication/reason for exam; i.e. extremities or head) *Use of iterative reconstruction technique DLP: 873 mGy-cm FINDINGS: LUNG BASES: The visualized lung bases are unremarkable. LIVER, GALLBLADDER, AND BILIARY TREE: The liver is normal in size, shape, and attenuation. No focal hepatic lesion or biliary ductal dilatation is present. The gallbladder is unremarkable with no evidence of radiopaque gallstones, gallbladder wall thickening, or obvious pericholecystic inflammatory changes. PANCREAS: Unremarkable. SPLEEN: Unremarkable. ADRENAL GLANDS: Unremarkable. KIDNEYS AND URETERS: The kidneys are normal in size, shape, and attenuation. No hydronephrosis, hydroureter, or calculi seen. No perinephric stranding. BLADDER: Unremarkable. GASTROINTESTINAL TRACT: Tiny hiatal hernia. The stomach is otherwise unremarkable. Normal caliber of the small bowel. No obstruction. Normal appendix. No colonic wall thickening or inflammation. The colon is diffusely decompressed. No free air or free fluid. ABDOMINAL WALL: No significant hernia is appreciated. LYMPH NODES: Normal. VASCULAR: Unremarkable. PELVIC VISCERA: Anteverted uterus with IUD in place. No adnexal mass. OSSEOUS STRUCTURES: No acute or suspicious osseous abnormality. Mild degenerative change throughout the spine. Mild degenerative changes of the hips. CT/CT abdomen pelvis w IV con IMPRESSION: No acute findings in the abdomen or pelvis. No inflammatory changes. Fleischner guidelines were followed.
[2022-06-24 09:25] VITALS: BP 154/74; PULSE 67; RESP 18; TEMP 36.7; O2SAT 99; BMI 33.3
[2022-06-24 12:40] LABS: MANUAL DIFF FLAG NO
[2022-06-24 12:41] LABS: Basophils Percent Auto 0.1 % (0-2); Eosinophils Percent Auto 0.1 % (0-4); Hematocrit 38.5 % (37.0-47.0); Hemoglobin 13.3 g/dl (12.0-16.0); Imm Gran Abs Auto 0.07 X10*3/uL (0.00-0.03); Imm Gran Pct Auto 0.5 % (0.0-0.4); Lymphocytes Absolute Auto 1.6 X10*3/uL (1.2-4.9); Lymphocytes Percent Auto 10.7 % (20-40); Mean Corpuscular HGB Conc 34.5 g/dl (31.0-35.0); Mean Corpuscular Volume 92.5 fL (80.0-98.0); Mean Platelet Volume 9.1 fL (9.4-12.3); Monocytes Absolute Auto 0.5 X10*3/uL (0.1-1.2); Monocytes Percent Auto 3.3 % (2-11); Neutrophils Absolute Auto 12.6 x10*3/uL (2.0-8.3); Neutrophils Percent Auto 85.3 % (45-73); Platelet Count 301 X10*3/uL (160-400); Red Blood Count 4.16 X10*6/uL (4.20-5.50); Red Cell Distribution Width 12.8 % (11.0-16.0); White Blood Count 14.8 X10*3/uL (4.8-10.8)
[2022-06-24 12:56] LABS: Alanine Aminotransferase 9 U/L (0-31); Albumin Level 4.7 g/dL (3.5-5.0); Alkaline Phosphatase 87 U/L (39-117); Anion Gap 19 (12-20); Aspartate Amino Transferase 17 U/L (5-31); Blood Urea Nitrogen 13 mg/dL (9-16); Calcium 9.3 mg/dL (8.4-10.2); Carbon Dioxide 20 mmol/L (22-29); Chloride 104 mmol/L (96-108); Creatinine Clr Calc Pharmacy 97.2; Estimated Glomerular Filt Rate > 60; Glucose Random 140 mg/dL (60-115); Lipase 8 U/L (8-78); Potassium 3.7 mmol/L (3.3-5.1); Sodium 139 mmol/L (135-145); Total Protein 7.4 g/dL (6.5-8.0)
[2022-06-24 13:05] VITALS: BP 140/55; PULSE 57; RESP 16; TEMP 36.8; O2SAT 99
--- NOTE | 2022-06-24 13:13 | PC.NURSE ---
pt a&ox4, cooperative, and pleasant. changed over to hospital gown. pt appears to be restless, and nauseous and states feeling shaky in her legs. pt sts pain, nausea, and vomiting since 0200 this am and hasn't been able to keep anything down. denies chest pain and sob. vss. wctm
--- NOTE | 2022-06-24 13:54 | ECG_ITS ---
Test Reason : abd pain Blood Pressure : / mmHG Vent. Rate : 063 BPM Atrial Rate : 063 BPM P-R Int : 136 ms QRS Dur : 086 ms QT Int : 418 ms P-R-T Axes : 048 050 043 degrees QTc Int : 427 ms Normal sinus rhythm with sinus arrhythmia Normal ECG When compared with ECG of 22-AUG-2019 09:13, No significant change was found Referred By: Dex Ojeda Electronically Signed By:KAT PANG
[2022-06-24 14:39] LABS: HCG Quantitative < 2 mIU/mL
[2022-06-24] MEDS: Famotidine/PF 20 MG/2 ML VIAL IVPUSH (14:52)
[2022-06-24 14:56] VITALS: RESP 16
[2022-06-24] MEDS: Morphine Sulfate 4 MG/ML CARTRIDGE IVPUSH (14:56)
[2022-06-24 14:57] VITALS: BP 141/71; PULSE 66; RESP 16; TEMP 37; O2SAT 99
[2022-06-24 15:06] LABS: Troponin-I High Sensitivity 3.8 ng/L (<3.5-17.0)
--- NOTE | 2022-06-24 15:13 | PC.NURSE ---
IV placed in pt's LAC and medicated per may. pt in no apparent distress. rr even/unlabored. resting quietly, watching tv. awaiting CT scan. vss. wctm
[2022-06-24] MEDS: iohexoL 350 MG/ML 100 ML INFUS..BTL IV (15:34)
[2022-06-24 16:00] VITALS: BP 120/67; PULSE 61; RESP 16; TEMP 36.9; O2SAT 98
--- NOTE | 2022-06-24 17:09 | ED.ABDPAIN ---
HPI - Abdominal Pain General Chief Complaint: Abdominal Pain Stated Complaint: Vomiting Upper L Side Pain Time Seen by Provider: 06/24/22 13:23 Source: patient Mode of arrival: ambulatory Limitations: no limitations History of Present Illness HPI narrative: 40-year-old female with pmh of pancreatitis presents to the ED for epigastric and left upper abdominal pain. patient denies any lower abdominal pain, dysuria, hematuria, flank pain, fever, or chills. Patient having symptoms since last night. Patient denies any chest pain or shortness of breath. Related Data Home Medications Medication Instructions Recorded Confirmed methylcellulose (laxative) 500 mg 1,000 mg PO TID 08/27/20 04/18/22 tablet (Citrucel) sulfur-witch trinity leaf 150 mg tab PO 11/26/20 03/16/22 tablet amitriptyline 10 mg tablet 10 mg PO BEDTIME 09/01/21 04/18/22 levonorgestrel 21 mcg/24 hours (8 20 device intrauterine DAILY 03/28/22 04/18/22 yrs) 52 mg intrauterine device (Mirena) Previous Rx's Medication Instructions Recorded famotidine 40 mg tablet 40 mg PO BEDTIME #90 tabs 01/26/22 pantoprazole 40 mg tablet,delayed 40 mg PO DAILY #90 tabs 01/26/22 release escitalopram oxalate 10 mg tablet 10 mg PO DAILY 90 days #90 tabs 03/09/22 hyoscyamine sulfate 0.125 mg 0.125 mg PO QID #90 tabs 03/21/22 disintegrating tablet sennosides 8.6 mg tablet (Senna 17.2 mg PO DAILY #60 tabs 04/05/22 Laxative) tramadol 50 mg tablet 50 mg PO TID PRN pain 3 days #9 06/24/22 tabs Allergies Allergy/AdvReac Type Severity Reaction Status Date / Time amoxicillin [Amoxicillin] Allergy Severe anaphylaxis Verified 03/28/22 08:30 Penicillins Allergy Severe anaphylaxis Verified 03/28/22 08:30 Sulfa (Sulfonamide Allergy Severe Hives Verified 03/28/22 08:30 Antibiotics) codeine [Codeine] Allergy Intermediate rash Verified 03/28/22 08:30 Review of Systems Review of Systems Epigastric/left upper abdominal pain Yes all other systems are reviewed and are negative PMFSH Past Medical History Medical History (Updated 06/24/22 @ 18:25 by LADY Iglesias) Abnormal Pap smear of cervix Asthma Back pain Coccydynia COVID-19 (~03/23/20) External hemorrhoids with complication Irritable bowel syndrome with diarrhea New daily persistent headache Obese Peptic ulcer Physical exam PONV (postoperative nausea and vomiting) Rash Traumatic coccydynia Surgical History (Updated 04/18/22 @ 15:48 by Anastasiia Ulloa MD) H/O: hemorrhoidectomy History of colonoscopy Hx of excision of mass [place] teeth removed Family History Family History Father Alive and well Substance use disorder Mother Family history of high blood pressure History of hip replacement Brain aneurysm Social History Social History (Updated 04/18/22 @ 15:36 by Brittni Rodney) Household Members: Children and None Housing: House Alcohol intake: current Alcohol intake frequency: does not drink Alcohol type: beer and hard liquor Patient Tobacco Use Status: Never used Tobacco Smoked in Last 30 Days: No e-Cigarette/Vaping Use: Never Used Second Hand Smoke Exposure: No Use of substances other than those prescribed or required for medical reasons: Yes Substance Use Type: Marijuana Substance Use Frequency: Occasionally Last Used Substance: Weeks (ago) Advance Directives: No Advance Directives Information Provided: Yes service: No Current occupational status: employed 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 Current occupational exposures/hazards: No Cognitive needs: No Hearing needs: No Vision needs: No Physical Exam ED Vital Signs: Vital Signs - 24 hr 06/24/22 09:25 06/24/22 13:05 06/24/22 14:56 Temperature 98.1 F 98.3 F Pulse Rate 67 57 Respiratory Rate 18 16 16 Blood Pressure 154/74 H 140/55 H Pulse Oximetry 99 99 Oxygen Delivery Method Room Air Room Air 06/24/22 14:57 06/24/22 16:00 06/24/22 18:00 Temperature 98.6 F 98.5 F 98.3 F Pulse Rate 66 61 61 Respiratory Rate 16 16 16 Blood Pressure 141/71 H 120/67 122/70 Pulse Oximetry 99 98 98 Oxygen Delivery Method Room Air Room Air Room Air BMI result Body Mass Index 33.3 Const General: cooperative, healthy appearing, comfortable, no acute distress, well developed, alert, awake and Physically active Orientation/consciousness: oriented to person, oriented to place, oriented to time and patient oriented x3 [facility] Head: Yes normal to inspection, Yes No palpable skull fracture present, Yes normocephalic, Yes atraumatic and No abrasion Eyes General: appearance normal, both eyes and all related structures Neck Neck: Yes normal visual inspection, Yes full ROM, Yes no lymphadenopathy, Yes no meningeal signs, Yes trachea midline, Yes supple, No anterior neck swelling and No tender Chest Chest palpation & inspection: normal inspection of the chest and normal palpation of entire chest wall Resp Effort & Inspection: normal respiratory effort and able to speak in complete sentences Auscultation: clear to auscultation bilaterally Cardio Jugular venous distension: no JVD Heart sounds: S1 normal heart sound present and S2 normal heart sound present GI Inspection: Yes normal to inspection Palpation (GI): Soft to palpation, not firm, Tenderness to palpation present (GI) in the epigastrum and in the LUQ, no guarding and not rigid General: No CVA tenderness and Yes no CVA tenderness Back/Spine/Pelvis Back: no CVA tenderness, No CVA tenderness and No back tenderness Skin General skin exam: no rashes or lesions noted and elasticity normal Neuro General: oriented to person, oriented to place, oriented to time, patient oriented x3, gait normal, tone normal, moves all extremities, Normal light touch and pain sensation, no meningeal signs, no focal motor deficits, CN's II-XI intact bilaterally and normal sensation to monofilament Extrem General: Yes normal to inspection and Yes full ROM Psych Appearance: grossly normal, well kempt and not disheveled Course Course Course Narrative: You to each EKG and troponin ordered. Patient will be sent for CT scan. Pain meds fluid labs ordered Reevaluation(s) Reevaluation #1: EKG negative STEMI. Troponin negative at that symptoms over [address] scan normal. Waiting for UA. patient receiving fluids per Time: 17:51 Reevaluation #2: Patient's urine negative for infection. Patient is safe for discharge. Patient discharged with pain medication told to follow up with primary care provider. CT scan does not show acute on chronic pancreatitis. Patient passed p.o. challenge. Time: 18:21 Medical Decision Making Medical Decision Making MDM Narrative: 41-year-old female presents ED for epigastric left upper quadrant pain since last night with history of pancreatitis. Patient denies any lower abdominal pain, flank pain, urinary symptoms, fever, chills. Patient denies any chest pain or shortness of breath. Patient denies any recent trauma. Patient labs are normal. EKG negative STEMI. Troponin negative. Urine negative UTI. CT scan normal. Patient to be discharged with pain medication follow-up with primary care provider. Differential Diagnosis Differential Diagnoses: The differential diagnosis associated with the presentation includes Admission/Observation Consideration of admission/observation: Escalation of care including admission/observation considered (Cholecystitis, pancreatitis, GERD, UTI, colitis, myocardial infarction,) Lab Data MDM Lab Attestation statement: I reviewed the patient's lab results. 06/24/22 12:34 06/24/22 12:34 Labs: Lab Results 06/24/22 06/24/22 06/24/22 Range/Units 12:34 12:34 14:42 WBC 14.8 H (4.8-10.8) X10*3/uL RBC 4.16 L (4.20-5.50) X10*6/uL Hgb 13.3 (12.0-16.0) g/dl Hct 38.5 (37.0-47.0) % MCV 92.5 (80.0-98.0) fL MCH 32.0 (27.0-33.0) pg MCHC 34.5 (31.0-35.0) g/dl RDW 12.8 (11.0-16.0) % Plt Count 301 (160-400) X10*3/uL MPV 9.1 L (9.4-12.3) fL Immature Gran % (Auto) 0.5 H (0.0-0.4) % Neut % (Auto) 85.3 H (45-73) % Lymph % (Auto) 10.7 L (20-40) % [place] % (Auto) 3.3 (2-11) % Eos % (Auto) 0.1 (0-4) % Baso % (Auto) 0.1 (0-2) % Lymph # (Auto) 1.6 (1.2-4.9) X10*3/uL [place] # (Auto) 0.5 (0.1-1.2) X10*3/uL Eos # (Auto) 0.0 (0.0-0.4) X10*3/uL Baso # (Auto) 0.0 (0.0-0.2) X10*3/uL Abs Immat Gran (auto) 0.07 H (0.00-0.03) X10*3/uL Absolute Neuts (auto) 12.6 H (2.0-8.3) x10*3/uL Absolute Nucleated RBC 0.000 (0.0-0.012) X10*3/uL Nucleated RBC % (auto) 0.0 (0.0-0.2) /100WBC Sodium 139 (135-145) mmol/L Potassium 3.7 (3.3-5.1) mmol/L Chloride 104 (96-108) mmol/L Carbon Dioxide 20 L (22-29) mmol/L Anion Gap 19 (12-20) BUN 13 (9-16) mg/dL Creatinine 0.83 (0.5-1.4) mg/dL Estim Creat Clear Calc 97.2 Estimated GFR > 60 Random Glucose 140 H (60-115) mg/dL Calcium 9.3 D (8.4-10.2) mg/dL Total Bilirubin 1.0 (0.0-1.0) mg/dL AST 17 (5-31) U/L ALT 9 (0-31) U/L Alkaline Phosphatase 87 (39-117) U/L Troponin I High Sens 3.8 (<3.5-17.0) ng/L Total Protein 7.4 (6.5-8.0) g/dL Albumin 4.7 (3.5-5.0) g/dL Lipase 8 (8-78) U/L Beta HCG, Quant < 2 mIU/mL Urine Color Urine Appearance Urine pH (5.0-9.0) Ur Specific [place] (1.005-1.025) Urine Protein (Neg-Trace) mg/dL Urine Glucose (UA) (Negative) mg/dL Urine Ketones (Negative) mg/dL Urine Blood (Negative) Urine Nitrite (Negative) Ur Leukocyte Esterase (Negative) Urine RBC (0-2) /HPF Urine WBC (0-5) /HPF Ur Squamous Epith Cells (0-2) /HPF Urine Bacteria (None Seen) Hyaline Casts (0-2) /LPF 06/24/22 Range/Units 17:57 WBC (4.8-10.8) X10*3/uL RBC (4.20-5.50) X10*6/uL Hgb (12.0-16.0) g/dl Hct (37.0-47.0) % MCV (80.0-98.0) fL MCH (27.0-33.0) pg MCHC (31.0-35.0) g/dl RDW (11.0-16.0) % Plt Count (160-400) X10*3/uL MPV (9.4-12.3) fL Immature Gran % (Auto) (0.0-0.4) % Neut % (Auto) (45-73) % Lymph % (Auto) (20-40) % [place] % (Auto) (2-11) % Eos % (Auto) (0-4) % Baso % (Auto) (0-2) % Lymph # (Auto) (1.2-4.9) X10*3/uL [place] # (Auto) (0.1-1.2) X10*3/uL Eos # (Auto) (0.0-0.4) X10*3/uL Baso # (Auto) (0.0-0.2) X10*3/uL Abs Immat Gran (auto) (0.00-0.03) X10*3/uL Absolute Neuts (auto) (2.0-8.3) x10*3/uL Absolute Nucleated RBC (0.0-0.012) X10*3/uL Nucleated RBC % (auto) (0.0-0.2) /100WBC Sodium (135-145) mmol/L Potassium (3.3-5.1) mmol/L Chloride (96-108) mmol/L Carbon Dioxide (22-29) mmol/L Anion Gap (12-20) BUN (9-16) mg/dL Creatinine (0.5-1.4) mg/dL Estim Creat Clear Calc Estimated GFR Random Glucose (60-115) mg/dL Calcium (8.4-10.2) mg/dL Total Bilirubin (0.0-1.0) mg/dL AST (5-31) U/L ALT (0-31) U/L Alkaline Phosphatase (39-117) U/L Troponin I High Sens (<3.5-17.0) ng/L Total Protein (6.5-8.0) g/dL Albumin (3.5-5.0) g/dL Lipase (8-78) U/L Beta HCG, Quant mIU/mL Urine Color Yellow Urine Appearance Clear Urine pH 5.5 (5.0-9.0) Ur Specific [place] >= 1.030 H (1.005-1.025) Urine Protein 30 (1+) H (Neg-Trace) mg/dL Urine Glucose (UA) Negative (Negative) mg/dL Urine Ketones 40 (Negative) mg/dL Urine Blood Negative (Negative) Urine Nitrite Negative (Negative) Ur Leukocyte Esterase Negative (Negative) Urine RBC 0-2 (0-2) /HPF Urine WBC 0-5 (0-5) /HPF Ur Squamous Epith Cells 0-2 (0-2) /HPF Urine Bacteria None Seen (None Seen) Hyaline Casts 0-2 (0-2) /LPF Independent Interpretation I performed an independent interpretation of an: EKG (Normal sinus rhythm. Ventricular rate 63. Peer interval 136. Care is 86. QTC 427. Negative STEMI) Radiology Impression Discussion of test interpretation with radiology: I have reviewed the radiologist's reading. Prescription Management I considered prescription management with: Pain Medication Medications Administered Discontinued Medications Generic Name Dose Route Start Last Admin Trade Name Freq PRN Reason Stop Dose Admin Famotidine 20 mg 06/24/22 13:48 06/24/22 14:52 Famotidine/Pf 20 Mg/2 Ml Vial IVPUSH 06/24/22 13:49 20 mg ONCE ONE Administration Sodium Chloride 1,000 mls @ 999 mls/hr 06/24/22 17:17 06/24/22 17:20 Ns IV 06/24/22 18:17 999 mls/hr .Q1H1M STA Administration Iohexol 100 ml 06/24/22 15:34 06/24/22 15:34 Iohexol 350 Mg/Ml 100 Ml Infus..Btl IV 06/24/22 15:35 85 ml ONCE ONE Administration Morphine Sulfate 4 mg 06/24/22 13:53 06/24/22 14:56 Morphine Sulfate 4 Mg/Ml Cartridge IVPUSH 06/24/22 13:54 4 mg ONCE ONE Administration Protocol Discharge Plan Discharge Clinical Impression: Abdominal pain, Chronic pancreatitis Patient Disposition: Home, Self-Care Instructions: Pancreatitis (ED), Gastroesophageal Reflux Disease (ED), Abdominal Pain (ED) Additional Instructions: Return to ED for worsening abdominal pain, chest pain, shortness of breath, fever, chills, flank pain, any lower abdominal pain, hematuria, dysuria, flank pain, diarrhea, blood in stool, inability to tolerate solid food/liquid, or any other concerning symptoms. Continue taking pantoprazole and pepcid as prescribed by your PCP. Prescriptions: New tramadol 50 mg tablet 50 mg PO TID PRN (Reason: pain) 3 Days Qty: 9 0RF No Action pantoprazole 40 mg tablet,delayed release (DR/EC) 40 mg PO DAILY Qty: 90 1RF famotidine 40 mg tablet 40 mg PO BEDTIME Qty: 90 1RF escitalopram oxalate 10 mg tablet 10 mg PO DAILY 90 Days Qty: 90 1RF sennosides [Senna Laxative] 8.6 mg tablet 17.2 mg PO DAILY Qty: 60 4RF Citrucel 500 mg tablet 1,000 mg PO TID sulfur-witch trinity leaf 150 mg tablet PO amitriptyline 10 mg tablet 10 mg PO BEDTIME hyoscyamine sulfate 0.125 mg tablet,disintegrating 0.125 mg PO QID Qty: 90 1RF Mirena 20 mcg/24 hours (8 yrs) 52 mg intrauterine device 20 device intrauterine DAILY Stand Alone Forms: Work/School Release Print Language: Telugu
[2022-06-24] MEDS: 0.9 % Sodium Chloride 1,000 ML 999 ML IV (17:20)
[2022-06-24 18:00] VITALS: BP 122/70; PULSE 61; RESP 16; TEMP 36.8; O2SAT 98
[2022-06-24 18:06] LABS: Appearance Urine Clear; Color Urine Yellow; Glucose Urine UA Negative (Negative); Leukocyte Esterase Urine Negative (Negative); Nitrite Urine Negative (Negative); PH 5.5 (5.0-9.0); Specific Gravity - Urine >= 1.030 (1.005-1.025); UMIC TRIGGER UACC YES; Urine Blood Negative (Negative); Urine Ketones 40 mg/dL (Negative); Urine Protein 30 (1+) mg/dL (Neg-Trace)
[2022-06-24 18:12] LABS: Bacteria Urine None Seen (None Seen); Hyaline Casts Urine 0-2 /LPF (0-2); RBC Urine 0-2 /HPF (0-2); Squamous Epithelial Cell Urine 0-2 /HPF (0-2); WBC Urine 0-5 /HPF (0-5)
== END 2022-06-24 18:49 | disposition home or self-care (01) ==
PROVIDERS: Physician Assistant; Emergency Provider Emergency Medicine Emergency Medical Services; PCP Internal Medicine
DX: K86.1 Other chronic pancreatitis (principal); R10.9 Unspecified abdominal pain; I49.8 Other specified cardiac arrhythmias; Z79.899 Other long term (current) drug therapy
CPT/HCPCS: 36415; 74177; 80053; 81001; 83690; 84484; 84702; 85025; 93005; 96361; 96374; 96375; 99284; 99285; J2270; Q9967

== ENCOUNTER 2022-07-11 09:08 | Outpatient (REF) | payer OTHER, SELFPAY ==
[2022-07-11 13:23] LABS: Erythrocyte Sedimentation Rate 13 MM/HR (0-20)
[2022-07-11 13:24] LABS: C Reactive Protein 0.82 mg/dL (< or = 0.50); Magnesium 2.2 mg/dL (1.6-2.6)
[2022-07-11 13:54] LABS: Ferritin 24 ng/mL (10-250); TSH reflex Free T4 1.06 uIU/mL (0.32-4.0); Vitamin B12 396 pg/mL (200-900); Vitamin D 25-OH Total 17.3 ng/mL (>30)
[2022-07-13 18:59] LABS: IgA 304 mg/dL (47-310); IgG 1082 mg/dL (600-1640); IgM 68 mg/dL (50-300)
[2022-07-14 11:54] LABS: Immunoglobulin E 353 kU/L (<OR=114)
[2022-07-15 11:19] LABS: Anti Nuclear Antibody Screen NEGATIVE (NEGATIVE)
[2022-07-15 17:19] LABS: Zinc 60 mcg/dL (60-130)
[2022-07-15 17:42] LABS: Histamine Plasma <1.5 ng/mL (< OR = 1.8)
[2022-07-16 19:58] LABS: Calcitonin <2 pg/mL (<=5)
[2022-07-17 14:17] LABS: Vitamin B6 5.6 ng/mL (2.1-21.7)
[2022-07-17 15:17] LABS: Metanephrine, Free 41 pg/mL (<=57); Normetanephrines, Free 52 pg/mL (<=148); Total Metanephrine, Free 93 pg/mL (<=205)
[2022-07-17 19:33] LABS: Vitamin C 0.1 mg/dL (0.3-2.7)
[2022-07-18 00:27] LABS: Gastrin 112 pg/mL (<=100)
[2022-07-18 00:58] LABS: Vitamin A 49 mcg/dL (38-98)
[2022-07-18 01:04] LABS: Alpha-Tocopherol 12.7 mg/L (5.7-19.9); Beta-Gamma Tocopherol 1.7 mg/L (<=4.3)
[2022-07-18 01:48] LABS: Vitamin K1 382 pg/mL (130-1500)
[2022-07-18 06:28] LABS: Vitamin B1 12 nmol/L (8-30)
[2022-07-18 20:03] LABS: Nicotinamide 28 ng/mL; Vit B3 - Nicotinic Acid <20 ng/mL; Vitamin B5 (Pantothenic Acid) <40 ng/mL (<275)
[2022-07-19 14:43] LABS: Angiotensin Converting Enzyme 34 U/L (9-67)
[2022-07-20 07:54] LABS: Aldolase 4.2 U/L (<=8.1)
[2022-07-20 11:34] LABS: Porphyrins, Total Plasma 0.4 mcg/L (1.0-5.6)
== END 2022-07-11 09:09 | disposition home or self-care (01) ==
LOC: HO.LAB 09:08
PROVIDERS: PCP Internal Medicine; Visit Provider Internal Medicine Gastroenterology
DX: K55.1 Chronic vascular disorders of intestine (principal); K51.50 Left sided colitis without complications; K90.9 Intestinal malabsorption, unspecified; R79.82 Elevated C-reactive protein (CRP); R19.7 Diarrhea, unspecified; R10.9 Unspecified abdominal pain; L25.9 Unspecified contact dermatitis, unspecified cause; D64.9 Anemia, unspecified; D75.89 Other specified diseases of blood and blood-forming organs; R10.12 Left upper quadrant pain
CPT/HCPCS: 36415; 82085; 82164; 82180; 82306; 82308; 82542; 82550; 82607; 82728; 82746; 82784; 82785; 82941; 83088; 83520; 83735; 83835; 84207; 84307; 84425; 84443; 84446; 84590; 84591; 84597; 84630; 85652; 86038; 86140

== ENCOUNTER 2022-11-21 09:22 | Outpatient (AMB) | payer OTHER, SELFPAY ==
--- NOTE | 2022-11-21 09:25 | MHC.OFFVIS ---
Intake Vital Signs 11/21/22 09:28 Height 5 ft 5 in Weight 198 lb 6.656 oz BMI 33.0 BP 110/74 Blood Pressure Location Lt brachial Position Sitting Pulse 79 Intake Visit Reasons: 4 mnth follow up Intake Note: Radha presents in the office as a 4 month follow up. CC: She states that she is feeling okay stomach kinney. The only thing is that she eliminated everything with Low Fod Map and now she is reintroducing new foods. If she does not keep to her safe foods She will have to run to the bathroom with diarrhea, nausea and sometimes vomiting. 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 Allergies amoxicillin [Amoxicillin] Allergy (Severe, Verified 11/21/22 09:30) anaphylaxis Penicillins Allergy (Severe, Verified 11/21/22 09:30) anaphylaxis Sulfa (Sulfonamide Antibiotics) Allergy (Severe, Verified 11/21/22 09:30) Hives codeine [Codeine] Allergy (Intermediate, Verified 11/21/22 09:30) rash HPI 4 mnth follow up HPI Details 42 yr old f here for f/u RECAP: she has sensitive stomach for long time this is cramping usu around the belly button area also under left sided ribs, major diarrhea, instantly after eating certain foods no nausea or vomiting she also has post concussion headaches she started amitriptiline 10 mg at night and it helps no heartburn no dysphagia bloating when eats certain foods she has alternating bowel habits between constipation and diarrhea? she avoids many types of foods occ has blood in stool--mixed and on wiping red meat, fast foods, fried foods, processed foods, dairy she did try low fodmap diet in past, hard to know what to reintroduce other family also have similar sx, incl mother and aunts no mouth ulcers she has kness and hip stiffness, worse in morning she had asthma in past occ alcohol and THC use colonoscopy 2019--internal hemorrhoid, nml biopsies of colon LABS: nml HGB, rasied MCV, nml BMP CT 2019---hemorrhagic cyst, otherwise nml EGD 01/25 Findings: Larynx:normal Esophagus: GE junction at 38? cm, diaphragm hiatus at 40 cm, 2 cm sliding hiatal hernia noted, bogginess and erythema at GEJ with some salmon pink islands, bx and brushings taken for WATS, also bx from distal and proximal esophagus. schatzki ring noted as well Stomach: Patchy gastric erythema with erosions at antrum. Biopsies were obtained. Grade 2 flap valve on retroflexed examination of the cardia. 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 VITAL SIGNS:see workflow HEENT: Nonicteric sclerae, PERRLA, EOMI. Oropharynx clear. Moist mucous membranes. Conjunctivae appear well perfused. No thyroid mass. CHEST: Chest wall is nontender. HEART: Regular rate and rhythm without murmurs. LUNGS: Clear to auscultation bilaterally. ABDOMEN: Soft, positive bowel sounds, tender epigastrium, no organomegaly.no flank tenderness SKIN: No rash, no excessive bruising, petechiae, or purpura. NEUROLOGIC: Cranial nerves II-XII intact without motor/sensory deficit. A/P: 1/ post prandial diarrhea and abdominal pain, ddx: vascular compression sx, bile acid malabsorption, food allergy, food intolerances, small bowel enteropathy, rapid motility, pancreatic insuff, porphyria, small bowle hormone tumours--many of these ruled out by testing she does seem to have rapid motility and dumping PLAN: 1/ change PPI to esomeprazole 2/ cont TCA to 25 mg 3/ consider VCE if ongoing sx 4/ stop senna, and use miralax bid, stop citrucel and use metmaucil 5/ daily antihistamine 6/ check KUB for fecal loading [facility] Medical History Abnormal Pap smear of cervix Asthma Back pain Coccydynia COVID-19 (~01/18/21) External hemorrhoids with complication Irritable bowel syndrome with diarrhea New daily persistent headache Obese Peptic ulcer Physical exam PONV (postoperative nausea and vomiting) Rash Traumatic coccydynia Surgical History H/O: hemorrhoidectomy History of colonoscopy Hx of excision of mass [place] teeth removed Family History Father Alive and well Substance use disorder Mother Family history of high blood pressure History of hip replacement Brain aneurysm Social History Household Members: Children and None Housing: House Alcohol intake: current Alcohol intake frequency: does not drink Alcohol type: beer and hard liquor Patient Tobacco Use Status: Never used Tobacco e-Cigarette/Vaping Use: Never Used Second Hand Smoke Exposure: No Substance Use Type: Marijuana service: No Current occupational status: employed 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 Current occupational exposures/hazards: No Cognitive needs: No Hearing needs: No Vision needs: No Female Reproductive History Menstrual Age of Menarche: 10 Physical Exam Vital Signs: Last Vital Signs Pulse 79 11/21/22 09:28 BP 110/74 11/21/22 09:28 BMI result Body Mass Index 33.0 Assessment & Plan Assessment & Plan (1) Constipation: Code(s): K59.00 - Constipation, unspecified Qualifiers: Constipation type: unspecified constipation type Qualified Code(s): K59.00 - Constipation, unspecified Orders: Orders XR KUB Today K59.00 - Constipation, unspecified Medications: New polyethylene glycol 3350 (Miralax) 17 grams PO BID 100 ea 2RF esomeprazole magnesium 40 mg PO DAILY 90 caps 1RF loratadine (Claritin) 10 mg PO DAILY 30 tabs 2RF psyllium husk (Metamucil) mix into at least 8 oz of water or juice before administering 1 tbsp PO BID 660 grams 0RF Discontinued sennosides (Senna Laxative) Discontinued Reason: Patient Completed Course 17.2 mg (2 x 8.6 mg) PO DAILY 60 tabs 4RF pantoprazole Discontinued Reason: Patient Completed Course 40 mg PO DAILY 90 tabs 3RF Coding Level of Care Code Est Pt Level 3 (42707) Diagnoses Constipation K59.00 Constipation type: unspecified constipation type
[2022-11-21 09:28] VITALS: BP 110/74; PULSE 79; BMI 33.0
== END 2022-11-21 09:57 | disposition home or self-care (01) ==
PROVIDERS: Visit Provider Internal Medicine Gastroenterology
DX: K59.00 Constipation, unspecified (principal)
CPT/HCPCS: 99213

== ENCOUNTER 2022-11-21 09:22 | Outpatient (REF) | payer OTHER, SELFPAY ==
--- NOTE | ~2022-11-21 | XR_ITS ---
EXAMINATION: XR ABDOMEN KUB CLINICAL INDICATION: Constipation, left upper quadrant pain since June COMPARISON: CT abdomen and pelvis 06/24/2022 TECHNIQUE: 2 AP views of the abdomen. FINDINGS: Nonobstructive bowel gas pattern. Moderate amount of stool in the colon. Degenerative changes in the imaged thoracolumbar spine. Moderate degenerative changes in the bilateral sacroiliac joints. IUD in the pelvis. XR/XR KUB IMPRESSION: Nonobstructive bowel gas pattern. Moderate amount of stool in the colon.
== END 2022-11-21 09:23 | disposition home or self-care (01) ==
LOC: HO.XRAY 09:22
PROVIDERS: PCP Internal Medicine; Visit Provider Internal Medicine Gastroenterology
DX: K59.00 Constipation, unspecified (principal)
CPT/HCPCS: 74018

== ENCOUNTER 2023-02-08 20:38 | Emergency (ER) | payer OTHER, SELFPAY ==
--- NOTE | ~2023-02-08 | XR_ITS ---
EXAMINATION: XR KNEE, LEFT CLINICAL INFORMATION: Pain COMPARISON: None available. TECHNIQUE: Four views of the left knee. FINDINGS: No fracture or joint effusion. Alignment is anatomic. Joint spaces are maintained. No abnormal soft tissue calcification. XR/XR knee LT 4V IMPRESSION: Normal left knee.
[2023-02-08 21:28] VITALS: BP 142/92; PULSE 64; RESP 20; TEMP 36.4; O2SAT 98; BMI 32.4
--- NOTE | 2023-02-08 23:32 | ED.GENADULT ---
HPI - General Adult General Chief complaint: Wound/Laceration Stated complaint: fell 02/08 lacerations to face,hands ,chest,knees Time Seen by Provider: 02/08/23 22:58 Source: patient Mode of arrival: ambulatory Limitations: no limitations History of Present Illness HPI narrative: Patient is a 42-year-old female with history of asthma presenting to the emergency department with complaint of left knee pain, right hand pain and upper lip swelling abrasion after a fall prior to arrival. Patient reports that she was leaving a work event when she tripped and fell forward onto a speed bump. She does admit to having 1 alcoholic drink at the event tonight. She denies loss of consciousness after the fall. She states that the fall was mechanical as she did not see the speed bump, denies any dizziness or lightheadedness prior to fall. Unknown last tetanus vaccine. Denies any loose teeth or malalignment of teeth. MD complaint: facial injury Onset (ago): hour(s) Location: face, mouth, upper extremity and lower extremity Severity: moderate Quality: aching Pain Consistency: constant Relieving factors: none Exacerbating factors: other (palpation) Associated symptoms: denies other symptoms Treatments prior to arrival: none Related Data Home Medications Medication Instructions Recorded Confirmed sulfur-witch trinity leaf 150 mg tab PO 11/26/20 03/16/22 tablet levonorgestrel 21 mcg/24 hours (8 20 device intrauterine DAILY 03/28/22 04/18/22 yrs) 52 mg intrauterine device (Mirena) gabapentin 100 mg capsule 100 mg PO TID 11/21/22 ondansetron HCl 4 mg tablet mg PO 11/21/22 sumatriptan succinate 100 mg tablet 100 mg PO DIRECTED 11/21/22 Previous Rx's Medication Instructions Recorded dicyclomine 20 mg tablet 20 mg PO QID PRN abdominal pain 07/20/22 #90 tabs ascorbic acid (vitamin C) 1,000 mg 1 g PO DAILY #90 caps 07/26/22 capsule cholecalciferol (vitamin D3) 25 25 mcg PO DAILY #90 caps 07/26/22 mcg (1,000 unit) capsule escitalopram oxalate 10 mg tablet 10 mg PO DAILY 90 days #90 tabs 09/12/22 nortriptyline 25 mg capsule 25 mg PO BEDTIME #90 caps 11/14/22 esomeprazole magnesium 40 mg 40 mg PO DAILY #90 caps 11/21/22 capsule,delayed release loratadine 10 mg tablet (Claritin) 10 mg PO DAILY #30 tabs 11/21/22 polyethylene glycol 3350 17 gram 17 g PO BID #100 ea 11/21/22 oral powder packet (Miralax) psyllium husk 3.4 gram/5.4 gram 1 tbsp PO BID #660 grams 11/21/22 oral powder (Metamucil) famotidine 40 mg tablet 40 mg PO BEDTIME #90 tabs 01/25/23 ibuprofen 600 mg tablet 600 mg PO Q6H PRN pain #14 tabs 02/08/23 Allergies Allergy/AdvReac Type Severity Reaction Status Date / Time amoxicillin [Amoxicillin] Allergy Severe anaphylaxis Verified 11/21/22 09:30 Penicillins Allergy Severe anaphylaxis Verified 11/21/22 09:30 Sulfa (Sulfonamide Allergy Severe Hives Verified 11/21/22 09:30 Antibiotics) codeine [Codeine] Allergy Intermediate rash Verified 11/21/22 09:30 Review of Systems Review of Systems: As per HPI. Yes all other systems are reviewed and are negative Constitutional: Constitutional: Reports as per HPI [facility] Past Medical History Medical History Abnormal Pap smear of cervix Asthma Back pain Coccydynia COVID-19 (~03/23/20) External hemorrhoids with complication Irritable bowel syndrome with diarrhea New daily persistent headache Obese Peptic ulcer Physical exam PONV (postoperative nausea and vomiting) Rash Traumatic coccydynia Surgical History H/O: hemorrhoidectomy History of colonoscopy Hx of excision of mass [place] teeth removed Family History Family History Father Alive and well Substance use disorder Mother Family history of high blood pressure History of hip replacement Brain aneurysm Social History Social History Household Members: Children and None Housing: House Alcohol intake: current Alcohol intake frequency: does not drink Alcohol type: beer and hard liquor Patient Tobacco Use Status: Never used Tobacco e-Cigarette/Vaping Use: Never Used Second Hand Smoke Exposure: No Substance Use Type: Marijuana Advance Directives: No Advance Directives Information Provided: No service: No Current occupational status: employed 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 Blood pressure elevated. Heart rate normal. Respiratory rate normal. Temperature normal. Oxygen saturation normal. Const General: cooperative, healthy appearing and no acute distress Orientation/consciousness: oriented to person, oriented to place, oriented to time and patient oriented x3 Limitations: no limitations HENMT Other: Head: Yes normocephalic and Yes atraumatic Ears: external ears normal and TM's normal bilaterally General nose exam: Normal external nose present, Normal nasal mucous membranes and turbinates present and Normal septum present Face and sinus: Yes sinuses nontender and Yes face symmetric Mouth: tongue normal, oropharynx normal, moist mucous membranes, lip abnormal left upper swelling and laceration (superficial laceration/abrasion), No abnormal TMJ, no trismus and No restricted motion Teeth and gingiva: dentition normal Throat: Yes uvula midline Eyes Pupils: Equal, round and reactive pupils present Neck Neck: Yes normal visual inspection and Yes supple Resp Effort & Inspection: normal respiratory effort and able to speak in complete sentences Auscultation: clear to auscultation bilaterally Cardio Rate: regular rate Rhythm: regular rhythm Heart sounds: S1 normal heart sound present and S2 normal heart sound present GI Palpation (GI): Soft to palpation and nontender Auscultation: normoactive bowel sounds General: Yes no CVA tenderness Back/Spine/Pelvis Back: no CVA tenderness Skin General skin exam: elasticity normal and turgor normal Neuro General: oriented to person, oriented to place, oriented to time, patient oriented x3, moves all extremities, no focal motor deficits and CN's II-XI intact bilaterally Cranial nerves: Yes Equal, round and reactive pupils present Cognition (Neuro): normal cognition Extrem General: Yes full ROM, Yes no pedal edema and Yes no calf tenderness Right upper extremity: Extremity exam: right hand (minor abrasion over dorsal aspect of 1st metacarpal) Details: normal capillary refill and normal ROM of fingers Left lower extremity: knee (minor abrasion anterior knee) Details: tenderness Location: of the patella, normal ROM and knee ligament exam normal Psych Mental Status: mental status grossly normal Affect: normal affect Thought process: Normal thought process present Medications Administered Discontinued Medications Generic Name Dose Route Start Last Admin Trade Name Freq PRN Reason Stop Dose Admin Diphtheria/Tetanus/Acell Pertussis 0.5 ml 02/08/23 23:32 02/08/23 23:55 Diphth,Pertus(Acell),Tet Adult 0.5 Ml Syringe IM 02/08/23 23:33 0.5 ml .ONCE ONE Administration Medical Decision Making Medical Decision Making [facility] Narrative: Patient is a 42-year-old female with history of asthma presenting to the emergency department with complaint of left knee pain, right hand pain and upper lip swelling abrasion after a fall prior to arrival. On exam patient is awake, A+Ox3, VS WNL, afebrile, normal neurological exam without focal deficits, physical exam findings as above. Given reported symptoms and physical exam findings, initial differential includes facial abrasion/laceration, left knee fracture vs contusion/abrasion, right hand abrasion. X-ray notable for normal left knee. My interpretation is in agreement with the radiologist's interpretation. Will update Tdap. Wounds cleansed thoroughly with normal saline. Abrasion to upper lip not requiring sutures/glue. Advised patient to cleanse areas daily with gentle soap and water and assess for signs of infection, follow up with PCP or return in these occur. Return precautions discussed at bedside. Patient verbalized understanding of and agreement with plan. Differential Diagnosis Differential Diagnoses: The differential diagnosis associated with the presentation includes As per [facility] Independent Interpretation I performed an independent interpretation of an: Plain X-Ray Interpretation: No fracture of left knee Radiology Impression Discussion of test interpretation with radiology: I have reviewed the radiologist's reading. Radiologist Impression: XR/XR knee LT 4V IMPRESSION: Normal left knee. External Record Review External record reviewed: Inpatient record, Office record and Outpatient record Prescription Management I considered prescription management with: Pain Medication Discharge Plan Discharge Clinical Impression: Abrasion of lip, initial encounter, Contusion of knee, left, Abrasion of hand, right, Fall Patient Disposition: Home, Self-Care Instructions: Contusion in Adults (ED), Abrasion (ED) Additional Instructions: You were evaluated in the emergency department today after a fall. Your evaluation did not reveal evidence of injuries requiring emergent treatment at this time. Your x-ray did not show any fractures of your knee. Your abrasions were cleansed in the emergency department and did not require stitches. You should continue to wash these areas with gentle soap and water daily and assess for signs of infection. Return to the emergency department if you develop increasing redness, swelling, thick yellow drainage, fever or any other concerning symptoms. Your Tdap (tetanus) vaccine was updated today. It is likely that your pain will be worse for the next 1-2 days before slowly improving. You can use 650 mg Tylenol or 600 mg ibuprofen every 6 hours as needed for pain. If necessary, you can alternate these medications every 3 hours. For example, at noon take Tylenol, then at 3:00 p.m. take ibuprofen, then at 6:00 p.m. take Tylenol, etc.. You can also apply ice for 10-15 minutes at a time several times daily, using caution not to apply ice directly to skin. You should apply sunscreen to your upper lip once the abrasion has fully healed daily to prevent scarring. You should follow-up with your primary care provider this week. Prescriptions: New ibuprofen 600 mg tablet 600 mg PO Q6H PRN (Reason: pain) Qty: 14 0RF No Action dicyclomine 20 mg tablet 20 mg PO QID PRN (Reason: abdominal pain) Qty: 90 1RF ascorbic acid (vitamin C) 1,000 mg capsule 1 g PO DAILY Qty: 90 2RF cholecalciferol (vitamin D3) 25 mcg (1,000 unit) capsule 25 mcg PO DAILY Qty: 90 2RF escitalopram oxalate 10 mg tablet 10 mg PO DAILY 90 Days Qty: 90 1RF nortriptyline 25 mg capsule 25 mg PO BEDTIME Qty: 90 0RF famotidine 40 mg tablet 40 mg PO BEDTIME Qty: 90 1RF sulfur-witch trinity leaf 150 mg tablet PO Mirena 20 mcg/24 hours (8 yrs) 52 mg intrauterine device 20 device intrauterine DAILY gabapentin 100 mg capsule 100 mg PO TID ondansetron HCl 4 mg tablet PO sumatriptan succinate 100 mg tablet 100 mg PO DIRECTED polyethylene glycol 3350 [Miralax] 17 gram powder in packet 17 g PO BID Qty: 100 2RF esomeprazole magnesium 40 mg capsule,delayed release(DR/EC) 40 mg PO DAILY Qty: 90 1RF loratadine [Claritin] 10 mg tablet 10 mg PO DAILY Qty: 30 2RF Metamucil 3.4 gram/5.4 gram powder 1 tbsp PO BID Qty: 660 0RF Rx Instructions: mix into at least 8 oz of water or juice before administering Stand Alone Forms: Work/School Release
[2023-02-08] MEDS: Diphth,Pertus(ACell),Tet Adult 0.5 ML SYRINGE IM (23:55)
--- NOTE | 2023-02-09 00:06 | PC.NURSE ---
pt discharge by charge nurse, no sign of distress.
== END 2023-02-09 00:07 | disposition home or self-care (01) ==
PROVIDERS: Emergency Provider Emergency Medicine; PCP Internal Medicine
DX: S80.02XA Contusion of left knee, initial encounter (principal); S00.511A Abrasion of lip, initial encounter; S60.511A Abrasion of right hand, initial encounter; S80.212A Abrasion, left knee, initial encounter; W01.0XXA Fall on same level from slipping, tripping and stumbling without subsequent striking against object, initial encounter; Y93.01 Activity, walking, marching and hiking; Y92.410 Unspecified street and highway as the place of occurrence of the external cause; Y99.9 Unspecified external cause status
CPT/HCPCS: 73564; 90471; 90715; 99284

== ENCOUNTER 2023-03-29 17:28 | Outpatient (AMB) | payer OTHER, SELFPAY ==
--- NOTE | 2023-03-29 17:28 | MHC.PC.OV ---
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 Accompanied by: Self / Same As Patient Allergies amoxicillin [Amoxicillin] Allergy (Severe, Verified 03/29/23 17:40) anaphylaxis Penicillins Allergy (Severe, Verified 03/29/23 17:40) anaphylaxis Sulfa (Sulfonamide Antibiotics) Allergy (Severe, Verified 03/29/23 17:40) Hives codeine [Codeine] Allergy (Intermediate, Verified 03/29/23 17:40) rash almond Allergy (Unknown, Verified 03/29/23 17:40) Unknown cantaloupe Allergy (Unknown, Verified 03/29/23 17:40) Unknown corn Allergy (Unknown, Verified 03/29/23 17:40) Unknown hazelnut Allergy (Unknown, Verified 03/29/23 17:40) Unknown peanut Allergy (Unknown, Verified 03/29/23 17:40) Unknown pear Allergy (Unknown, Verified 03/29/23 17:40) Unknown pineapple Allergy (Unknown, Verified 03/29/23 17:40) Unknown soy Allergy (Unknown, Verified 03/29/23 17:40) Unknown walnut Allergy (Unknown, Verified 03/29/23 17:40) Unknown Medication List - Last Reconciled 03/29/23 by Regina Smith MD ascorbic acid (vitamin C) 1 g PO DAILY cholecalciferol (vitamin D3) 25 mcg PO DAILY dicyclomine 20 mg PO QID PRN escitalopram oxalate 10 mg PO DAILY 90 days esomeprazole magnesium 40 mg PO DAILY famotidine 40 mg PO BEDTIME gabapentin 100 mg PO TID ibuprofen 600 mg PO Q6H PRN levonorgestrel (Mirena) 20 device intrauterine DAILY loratadine 10 mg PO DAILY nortriptyline 25 mg PO BEDTIME ondansetron HCl mg PO psyllium husk (Metamucil) 1 tbsp PO BID sulfur-witch trinity leaf 150 mg tabs PO sumatriptan succinate 100 mg PO DIRECTED Tobacco use date assessed: 03/29/23 Dental Screening Dental Screen Date: 03/29/23 Did you have a dental visit in the last 12 months?: Yes Did you have a dental problem in the last 6 months where you did not have access to dental care?: No Was dental information given to patient?: Patient has dentist HPI HPI Comments History of Present Illness Details This is a 42-year-old female that comes for her physical exam. Mammogram done 2022 was normal. Pap smear done 2022. Last colonoscopy was done 2021. No chest pain or shortness of breath. [facility] Medical History Abnormal Pap smear of cervix New daily persistent headache Physical exam Rash COVID-19 (~03/23/20) Obese External hemorrhoids with complication Irritable bowel syndrome with diarrhea Traumatic coccydynia Coccydynia PONV (postoperative nausea and vomiting) Back pain Peptic ulcer Asthma Surgical History History of colonoscopy [place] teeth removed H/O: hemorrhoidectomy Hx of excision of mass Family History Father Alive and well Substance use disorder Mother Family history of high blood pressure History of hip replacement Brain aneurysm Social History Household Members: Children and None Housing: House Alcohol intake: current Alcohol intake frequency: holidays/special occasions only Alcohol type: beer and hard liquor Patient Tobacco Use Status: Never used Tobacco e-Cigarette/Vaping Use: Never Used Second Hand Smoke Exposure: No Substance Use Type: Marijuana service: No Current occupational status: employed 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 1. Little interest or pleasure in doing things: not at all 2. Feeling down, depressed, or hopeless: not at all 3. Trouble falling or staying asleep, or sleeping too much: not at all 4. Feeling tired or having little energy: not at all 5. Poor appetite or overeating: not at all 6. Feeling bad about yourself - or that you are a failure or have let yourself or your family down: not at all 7. Trouble concentrating on things, such as reading the newspaper or watching television: not at all 8. Moving or speaking so slowly that other people could have noticed. Or the opposite - being so fidgety or restless that you have been moving around a lot more than usual: not at all 9. Thoughts that you would be better off or of hurting yourself in some way: not at all Total score: 0 Depression Screening Interpretation: Negative Depression Screening Done: Yes 05907 - PHQ-9 Billing: Yes Source: Developed by Drs. Italo Cortez, Sammi Maher, Eleuterio Rainey and colleagues, with an educational neel from [employer]. Thrive Questionnaire Date Thrive assessed: 03/29/23 I am a: Patient What is your living situation today?: I have a steady place to live Within the past 12 months, did the food you bought not last and you didn't have the money to get more?: Never true Within the past 12 months, did you worry whether your food would run out before you got money to buy more?: Never true Do you have trouble paying for medicines?: No Do you have trouble getting transportation to medical appointments?: No Do you have trouble paying your heating and electricity bill?: No Do you have trouble taking care of your child, family member or friend?: No Do you have trouble with day-to-day activities such as bathing, preparing meals, shopping, managing finances, etc.?: No Are you currently unemployed and looking for a job?: No Are you interested in more education?: No Please select the resources that you would like help with: None Currently or been in a relationship where the following occur: no concerns reported THRIVE Score: 0 AUDIT C Alcohol Use Questionnaire (AUDIT-C) 1. How often do you have a drink containing alcohol?: Monthly or less 2. How many drinks containing alcohol do you have on a typical day when you are drinking?: 1 or 2 3. How often do you have six or more drinks on one occasion?: Never Total Score: 1 Score Reviewed/Action Taken: No MARTIN-7 AMB Questionnaire MARTIN-7 Date MARTIN - 7 assessed: 03/29/23 Feeling nervous, anxious, or on edge: 2 = More than half the days Not being able to stop or control worryin = Not at all Worrying too much about different things: 1 = Several days Trouble relaxin = Several days Being so restless that it is hard to sit still: 1 = Several days Becoming easily annoyed or irritable: 0 = Not at all Feeling afraid as if something awful might happen: 1 = Several days Total MARTIN-7 score (0-4 normal; 5-9 mild; 10-14 moderate; 15-21 severe): 6 Source: Developed by Drs. Italo Cortez, Sammi Maher, Eleuterio Rainey and colleagues, with an educational neel from [employer]. MARTIN-7 Assessment Billing MARTIN-7 Assessment Tool: MARTIN-7 Assessment 78509 Review of Systems Const All systems reviewed & are unremarkable except as noted in HPI and below Eyes Reports no additional complaints, Denies change in vision and Denies other visual disturbances Card Denies chest pain at rest, Denies chest pain with activity, Denies edema, Denies irregular heart rhythm, Denies claudication, Denies dyspnea, Denies dyspnea on exertion, Denies orthopnea, Denies paroxysmal nocturnal dyspnea and Denies slow heart rate Resp Denies cough, Denies dyspnea and Denies dyspnea on exertion GI Denies abdominal pain, Denies change in bowel habits, Denies excessive flatus, Denies nausea and Denies vomiting Denies urinary incontinence, Denies urinary hesitancy and Denies urinary urgency Musc Denies abnormal gait, Denies atrophy, Denies deformity and Denies limited range of motion Skin/Breast Denies bleeding lesions, Denies changing lesions and Denies rash Neuro Denies abnormal gait, Denies behavioral changes, Denies confusion and Denies lack of coordination Psych Denies behavioral changes and Denies confusion Physical exam (Primary Care) Vital Signs: Last Vital Signs BP 110/82 03/29/23 17:29 BMI result Body Mass Index 33.9 Tobacco/Smoking Status: Tobacco use Status Tobacco use date assessed 03/29/23 03/29/23 17:42 Patient Tobacco Use Status Never used Tobacco 03/29/23 17:42 e-Cigarette/Vaping Use Never Used 03/29/23 17:42 PHQ-9: PHQ-9 Score PHQ-9: Total score 0 03/29/23 17:52 Depression Screening Interpretation: Negative Thrive Assessment: Date of Thrive Assessment Date Thrive assessed 03/29/23 03/29/23 17:42 Currently or been in a relationship where the following occur: no concerns reported Const General: No confusion Orientation/consciousness: patient oriented x3 and No confusion HENMT Head: Yes normal to inspection, Yes normocephalic and Yes atraumatic Ears: external ears normal Eyes General: appearance normal, both eyes and all related structures Eyelids: Yes eyelids normal Conjunctivae: conjunctivae normal Neck Neck: Yes normal visual inspection and Yes supple Resp Effort & Inspection: normal respiratory effort Auscultation: clear to auscultation bilaterally Cardio Jugular venous distension: no JVD Rate: regular rate Rhythm: regular rhythm Heart sounds: S1 normal heart sound present and S2 normal heart sound present GI Inspection: Yes normal to inspection Palpation (GI): Soft to palpation and nontender Auscultation: normal bowel sounds Skin General skin exam: no rashes or lesions noted Neuro General: patient oriented x3, no focal motor deficits and No confusion Extrem General: Yes full ROM Psych Appearance: grossly normal Assessment and Plan Assessment & Plan (1) Physical exam: Code(s): Z00.00 - Encounter for general adult medical examination without abnormal findings Plan: Repeat in a year. Orders: Orders Lipid Panel Today Z00.00 - Encounter for general adult medical examination without abnormal findings Comprehensive [place]. Panel Fast Today Z00.00 - Encounter for general adult medical examination without abnormal findings Vitamin D 25-OH Total Today E55.9 - Vitamin D deficiency, unspecified Coding Level of Care Code Est Pt Prev Care 40-64y(90135) Diagnoses Physical exam Z00.00 Additional Codes MARTIN-7 Assessment Billing - MARTIN-7 Assessment Tool: MARTIN-7 Assessment 93425 ([id number]) Time Spent (min) 33
[2023-03-29 17:29] VITALS: BP 110/82; BMI 33.9
== END 2023-03-29 17:55 | disposition home or self-care (01) ==
LOC: HO.HMGH 17:28
PROVIDERS: PCP Internal Medicine; Visit Provider Internal Medicine
DX: Z00.00 Encounter for general adult medical examination without abnormal findings (principal)
CPT/HCPCS: 99396

== ENCOUNTER 2023-04-27 10:20 | Outpatient (REF) | payer OTHER, SELFPAY ==
[2023-04-28 12:00] LABS: CT PCR NOT DETECTED (Not Detect.); NG PCR NOT DETECTED (Not Detect.)
[2023-04-28 14:21] LABS: BV Int Neg Control Negative (Negative); BV Int Pos Control Positive (Positive)
== END 2023-04-27 10:21 | disposition home or self-care (01) ==
LOC: HO.LAB 10:20
PROVIDERS: PCP Internal Medicine; Visit Provider Advanced Practice Midwife
DX: Z01.419 Encounter for gynecological examination (general) (routine) without abnormal findings (principal); Z20.2 Contact with and (suspected) exposure to infections with a predominantly sexual mode of transmission
CPT/HCPCS: 0353U; 87480; 87510; 87660

== ENCOUNTER 2023-04-27 10:20 | Outpatient (AMB) | payer OTHER, SELFPAY ==
--- NOTE | 2023-04-27 10:24 | MHC.OFFVIS ---
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 Representative: Outreach Representative Present (Beba) Allergies amoxicillin [Amoxicillin] Allergy (Severe, Verified 04/27/23 10:25) anaphylaxis Penicillins Allergy (Severe, Verified 04/27/23 10:25) anaphylaxis Sulfa (Sulfonamide Antibiotics) Allergy (Severe, Verified 04/27/23 10:25) Hives codeine [Codeine] Allergy (Intermediate, Verified 04/27/23 10:25) rash almond Allergy (Unknown, Verified 04/27/23 10:25) Unknown cantaloupe Allergy (Unknown, Verified 04/27/23 10:25) Unknown corn Allergy (Unknown, Verified 04/27/23 10:25) Unknown hazelnut Allergy (Unknown, Verified 04/27/23 10:25) Unknown peanut Allergy (Unknown, Verified 04/27/23 10:25) Unknown pear Allergy (Unknown, Verified 04/27/23 10:25) Unknown pineapple Allergy (Unknown, Verified 04/27/23 10:25) Unknown soy Allergy (Unknown, Verified 04/27/23 10:25) Unknown walnut Allergy (Unknown, Verified 04/27/23 10:25) Unknown HPI HPI Comments History of Present Illness Details She is a premenopausal woman presenting for annual examination. Doing well with no concerns. She tries to eat healthy and stays active with walking and stretches. Followed by GI, working w/diet and meds to help with concerns. Regular light/short cycles with the Mirena, no cramps. Currently is sexually active, new partner this year, using condoms. She denies vaginal itching and irritation. STI screening offered; she accepts. Denies family history of breast, ovarian or colon cancer. Last pap smear 2022, negative. Mammogram: 05/2022. [facility] Medical History Abnormal Pap smear of cervix New daily persistent headache Physical exam Rash COVID-19 (~03/23/20) Obese External hemorrhoids with complication Irritable bowel syndrome with diarrhea Traumatic coccydynia Coccydynia PONV (postoperative nausea and vomiting) Back pain Peptic ulcer Asthma Surgical History History of colonoscopy [place] teeth removed H/O: hemorrhoidectomy Hx of excision of mass Family History Father Alive and well Substance use disorder Mother Family history of high blood pressure History of hip replacement Brain aneurysm Social History Household Members: Children and None Housing: House Alcohol intake: current Alcohol intake frequency: holidays/special occasions only Alcohol type: beer and hard liquor Patient Tobacco Use Status: Never used Tobacco e-Cigarette/Vaping Use: Never Used Second Hand Smoke Exposure: No Substance Use Type: Marijuana service: No Current occupational status: employed 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 Current occupational exposures/hazards: No Cognitive needs: No Hearing needs: No Vision needs: No Female Reproductive History Menstrual Age of Menarche: 10 Duration of menses: 3-5 days Date of last menstrual period: 03/29/23 control method: progestin IUCD Date of last pap smear: 03/28/22 (neg pap and hpv) History of abnormal pap smear: Yes (10/23 ascus +hpv 10/24 neg,neg) Date of Mammogram: 05/21/22 (Birad 1) Review of Systems Const All systems reviewed & are unremarkable except as noted in HPI and below Reports as per HPI Eyes Reports no additional complaints ENT Reports no additional complaints Card Reports no additional complaints Resp Reports no additional complaints GI Reports as per HPI and Reports no additional complaints Reports as per HPI Musc Reports no additional complaints Skin/Breast Reports as per HPI Neuro Reports no additional complaints Psych Reports no additional complaints Endo Reports no additional complaints Luis E/Lymph Reports no additional complaints Aller/Immun Reports no additional complaints Physical Exam Vital Signs: Last Vital Signs BP 110/72 04/27/23 10:25 BMI result Body Mass Index 33.8 Const General: cooperative, healthy appearing, no acute distress, well developed and alert Orientation/consciousness: patient oriented x3 HEENT Head: Yes normal to inspection Eyes General: appearance normal, both eyes and all related structures Neck Neck: Yes normal visual inspection Thyroid: Thyroid normal Chest Chest palpation & inspection: normal inspection of the chest and other (no puckering, dimpling, peau de orange, retraction, discharge, masses) Breast/axilla inspection: normal inspection of the breasts Breast/axilla palpation: normal palpation of the breasts Resp Effort & Inspection: normal respiratory effort GI Inspection: Yes normal to inspection Palpation (GI): Soft to palpation Rectal Exam - Female: deferred General: Yes bladder normal to palpation External Female Exam: normal external appearance and normal appearance of the urethra Speculum Exam - Vagina: normal appearance of the vagina, normal palpation and normal vaginal discharge Speculum Exam - Cervix: normal appearance of the cervix, normal palpation and Other cervical findings present (IUD string short at os, small amount of blood present) Bimanual exam- vagina & uterus: normal bimanual exam, normal palpation, uterine size normal, bladder normal to palpation, normal palpation and non-tender Bimanual Exam- Adnexa, other: no masses Skin General skin exam: no rashes or lesions noted Rashes: no rashes Neuro General: patient oriented x3 Cognition (Neuro): normal cognition Extrem General: Yes normal to inspection Psych Attitude: cooperative Thought process: Normal thought process present Assessment & Plan Assessment & Plan (1) Encounter for well woman exam with routine gynecological exam: Code(s): Z01.419 - Encounter for gynecological examination (general) (routine) without abnormal findings Plan Discussed: Current recommendations for pap smears per ASCCP guidelines. Breast awareness and periodic breast exams. Maintain a healthy lifestyle including a well balanced diet and routine exercise. Use condoms for STI prevention. She declines STD for blood work. Mammogram yearly. Colonoscopy >45, or at risk sooner. Patient verbalizes understanding and agrees to the plan of care. She was given opportunity to ask questions and all questions were answered to the best of my ability. 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 This note is constructed using voice recognition software. While every effort has been made to ensure accuracy, paper roll machine operator errors may have been included. Orders: Orders Bacterial Vaginosis Panel Today Z20.2 - Contact with and (suspected) exposure to infections with a predominantly sexual mode of transmission CT NG by PCR Today Z20.2 - Contact with and (suspected) exposure to infections with a predominantly sexual mode of transmission Coding Level of Care Code Est Pt Prev Care 40-64y(30667) Diagnoses Encounter for well woman exam with routine gynecological exam Z01.419
[2023-04-27 10:25] VITALS: BP 110/72; BMI 33.8
== END 2023-04-27 11:18 | disposition home or self-care (01) ==
LOC: HO.HWS 10:20
PROVIDERS: PCP Internal Medicine; Visit Provider Advanced Practice Midwife
DX: Z01.419 Encounter for gynecological examination (general) (routine) without abnormal findings (principal)
CPT/HCPCS: 99396

== ENCOUNTER 2023-04-27 11:10 | Outpatient (REF) | payer OTHER, SELFPAY | END 2023-04-27 11:11 | disposition home or self-care (01) | LOC: HO.LNP 11:10 | PROVIDERS: Visit Provider Advanced Practice Midwife | DX: Z13.89 Encounter for screening for other disorder (principal) ==

== ENCOUNTER 2023-05-08 11:02 | Outpatient (AMB) | payer OTHER, SELFPAY ==
[2023-05-08 11:34] VITALS: BP 120/90; PULSE 86; TEMP 36.4; O2SAT 97; BMI 33.1
--- NOTE | 2023-05-08 11:34 | AM.OFFWIN_ITS ---
Intake Vital Signs 05/08/23 11:34 Height 5 ft 5 in Weight 199 lb BMI 33.1 BP 120/90 H Blood Pressure Location Lt brachial Position Sitting Pulse 86 Pulse Source Pulse Oximeter Temp 97.6 F Temp Source Temporal Artery Scan Pulse Oximetry (%) 97 Oxygen Delivery Method Room Air Intake Visit Reasons: EST/left eye redness ([phone]) Intake Note: pt is here today for lft eye redness started monday Patient Tobacco Use Status: Never used Tobacco Allergies amoxicillin [Amoxicillin] Allergy (Severe, Verified 05/08/23 11:36) anaphylaxis Penicillins Allergy (Severe, Verified 05/08/23 11:36) anaphylaxis Sulfa (Sulfonamide Antibiotics) Allergy (Severe, Verified 05/08/23 11:36) Hives codeine [Codeine] Allergy (Intermediate, Verified 05/08/23 11:36) rash almond Allergy (Unknown, Verified 05/08/23 11:36) Unknown cantaloupe Allergy (Unknown, Verified 05/08/23 11:36) Unknown corn Allergy (Unknown, Verified 05/08/23 11:36) Unknown hazelnut Allergy (Unknown, Verified 05/08/23 11:36) Unknown peanut Allergy (Unknown, Verified 05/08/23 11:36) Unknown pear Allergy (Unknown, Verified 05/08/23 11:36) Unknown pineapple Allergy (Unknown, Verified 05/08/23 11:36) Unknown soy Allergy (Unknown, Verified 05/08/23 11:36) Unknown walnut Allergy (Unknown, Verified 05/08/23 11:36) Unknown Do you need a note to return to daycare/school/sports/work: No HPI HPI Comments History of Present Illness Details 42-year-old female presents today with l eft eye conjunctival irritation and exudate with mild swelling. [facility] Medical History Abnormal Pap smear of cervix New daily persistent headache Physical exam Rash COVID-19 (~03/23/20) Obese External hemorrhoids with complication Irritable bowel syndrome with diarrhea Traumatic coccydynia Coccydynia PONV (postoperative nausea and vomiting) Back pain Peptic ulcer Asthma Surgical History History of colonoscopy [place] teeth removed H/O: hemorrhoidectomy Hx of excision of mass Family History Father Alive and well Substance use disorder Mother Family history of high blood pressure History of hip replacement Brain aneurysm Social History Household Members: Children and None Housing: House Alcohol intake: current Alcohol intake frequency: holidays/special occasions only Alcohol type: beer and hard liquor Patient Tobacco Use Status: Never used Tobacco e-Cigarette/Vaping Use: Never Used Second Hand Smoke Exposure: No Substance Use Type: Marijuana service: No Current occupational status: employed 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 Current occupational exposures/hazards: No Cognitive needs: No Hearing needs: No Vision needs: No Female Reproductive History Menstrual Age of Menarche: 10 Review of Systems Const All systems reviewed & are unremarkable except as noted in HPI and below Physical Exam Vital Signs: Last Vital Signs Temp 97.6 F 05/08/23 11:34 Pulse 86 05/08/23 11:34 BP 120/90 H 05/08/23 11:34 Pulse Ox 97 05/08/23 11:34 Oxygen Delivery Method Room Air 05/08/23 11:34 BMI result Body Mass Index 33.1 Eyes Eyelids: Yes eyelids normal Conjunctivae: conjunctival abnormal left conjunctival injection and discharge Pupils: Equal, round and reactive pupils present Neuro Cranial nerves: Yes Equal, round and reactive pupils present Assessment & Plan Assessment & Plan (1) Conjunctivitis: Code(s): H10.9 - Unspecified conjunctivitis Plan: The patient will use gentamicin for the next 5 days. Follow up with the PCP Plan See plan Medications: New gentamicin 0.3% 1 drp ophthalmic (eye) Q4H 5 days 5 mL 0RF Coding Level of Care Code Est Pt Level 3 (19209) Diagnoses Conjunctivitis H10.9 Time Spent (min) 20
== END 2023-05-08 12:19 | disposition home or self-care (01) ==
PROVIDERS: PCP Internal Medicine; Visit Provider Physician Assistant Medical
DX: H10.9 Unspecified conjunctivitis (principal)
CPT/HCPCS: 99213

== ENCOUNTER 2023-05-19 10:17 | Outpatient (AMB) | payer OTHER, SELFPAY ==
--- NOTE | 2023-05-19 10:20 | A.OFFVIS_ITS ---
Intake Vital Signs 05/19/23 10:21 Height 5 ft 5 in Weight 202 lb 13.204 oz BMI 33.7 BP 114/72 Blood Pressure Location Lt brachial Position Sitting Pulse 88 Intake Visit Reasons: 4 month follow up Intake Note: Radha presents in the office as a 4 month follow up. CC: She states if she misses her meds she suffers. She tries to introduce new foods she is unable to do so and will suffer after. 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 Required: No Allergies amoxicillin [Amoxicillin] Allergy (Severe, Verified 05/19/23 10:25) anaphylaxis Penicillins Allergy (Severe, Verified 05/19/23 10:25) anaphylaxis Sulfa (Sulfonamide Antibiotics) Allergy (Severe, Verified 05/19/23 10:25) Hives codeine [Codeine] Allergy (Intermediate, Verified 05/19/23 10:25) rash almond Allergy (Unknown, Verified 05/19/23 10:25) Unknown cantaloupe Allergy (Unknown, Verified 05/19/23 10:25) Unknown corn Allergy (Unknown, Verified 05/19/23 10:25) Unknown hazelnut Allergy (Unknown, Verified 05/19/23 10:25) Unknown peanut Allergy (Unknown, Verified 05/19/23 10:25) Unknown pear Allergy (Unknown, Verified 05/19/23 10:25) Unknown pineapple Allergy (Unknown, Verified 05/19/23 10:25) Unknown soy Allergy (Unknown, Verified 05/19/23 10:25) Unknown walnut Allergy (Unknown, Verified 05/19/23 10:25) Unknown HPI 4 month follow up HPI Details 42 yr old f here for f/u RECAP: she has sensitive stomach for long time this is cramping usu around the belly button area also under left sided ribs, major diarrhea, instantly after eating certain foods no nausea or vomiting she also has post concussion headaches she started amitriptiline 10 mg at night and it helps no heartburn no dysphagia bloating when eats certain foods she has alternating bowel habits between constipation and diarrhea? she avoids many types of foods occ has blood in stool--mixed and on wiping red meat, fast foods, fried foods, processed foods, dairy she did try low fodmap diet in past, hard to know what to reintroduce other family also have similar sx, incl mother and aunts no mouth ulcers she has kness and hip stiffness, worse in morning she had asthma in past occ alcohol and THC use colonoscopy 2019--internal hemorrhoid, nml biopsies of colon LABS: nml HGB, rasied MCV, nml BMP CT 2019---hemorrhagic cyst, otherwise nml EGD 01/25 Findings: Larynx:normal Esophagus: GE junction at 38? cm, diaphragm hiatus at 40 cm, 2 cm sliding hiatal hernia noted, bogginess and erythema at GEJ with some salmon pink islands, bx and brushings taken for WATS, also bx from distal and proximal esophagus. schatzki ring noted as well Stomach: Patchy gastric erythema with erosions at antrum. Biopsies were obtained. Grade 2 flap valve on retroflexed examination of the cardia. Duodenum: Bulbar duodenitis, bx taken Intervention: Biopsies as noted above, brushings Impression/Findings: sliding hiatal hernia schatzki ring esophagitis erosive gastritis duodenitis US doppler-- suggestive of stenosis, but CTA 02/[address] A/P: 03/2022--- equivocal stranding around mesentry around pancreas, lipase was nml, as were LFT GES 03/2022--- rapid emptying only 2% by 2 hrs INTERIM: she is taking bentyl TID, nortriptiline, metamucil, nexium, vit D and C, pepcid at night and claritin (feels this has helped a lot) she feels she is not swinging thru extreme diarrhea or constipation if she takes alcohol she suffers for the day, only takes occasional she still has LUQ, dull ache, always there, 1-2 in severity not related to movement, bending or coughing, more food related avoiding allergens --soy and nuts 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 VITAL SIGNS:see workflow HEENT: Nonicteric sclerae, PERRLA, EOMI. Oropharynx clear. Moist mucous membranes. Conjunctivae appear well perfused. No thyroid mass. CHEST: Chest wall is nontender. HEART: Regular rate and rhythm without murmurs. LUNGS: Clear to auscultation bilaterally. ABDOMEN: Soft, positive bowel sounds, tender epigastrium, no organomegaly.no flank tenderness SKIN: No rash, no excessive bruising, petechiae, or purpura. NEUROLOGIC: Cranial nerves II-XII intact without motor/sensory deficit. A/P: 1/ post prandial diarrhea and abdominal pain, ddx: vascular compression sx, bile acid malabsorption, food allergy, food intolerances, small bowel enteropathy, rapid motility, pancreatic insuff, porphyria, small bowle hormone tumours--many of these ruled out by testing but she does seem to have rapid motility and dumping and seems to have had some response to med regimen as above Imaging also neg for biliary disease on several occasions PLAN: 1/ cont with PPI 2/ cont TCA at 25 mg, increase claritin to BID 3/ consider VCE if worsening sx 4/ can increase metamucil to BID 5/ check vit C and D levels at [facility] Medical History Abnormal Pap smear of cervix New daily persistent headache Physical exam Rash COVID-19 (~03/23/20) Obese External hemorrhoids with complication Irritable bowel syndrome with diarrhea Traumatic coccydynia Coccydynia PONV (postoperative nausea and vomiting) Back pain Peptic ulcer Asthma Surgical History History of colonoscopy [place] teeth removed H/O: hemorrhoidectomy Hx of excision of mass Family History Father Alive and well Substance use disorder Mother Family history of high blood pressure History of hip replacement Brain aneurysm Social History Household Members: Children and None Housing: House Alcohol intake: current Alcohol intake frequency: holidays/special occasions only Alcohol type: beer and hard liquor Patient Tobacco Use Status: Never used Tobacco e-Cigarette/Vaping Use: Never Used Second Hand Smoke Exposure: No Substance Use Type: Marijuana service: No Current occupational status: employed 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 Current occupational exposures/hazards: No Cognitive needs: No Hearing needs: No Vision needs: No Female Reproductive History Menstrual Age of Menarche: 10 Physical Exam Vital Signs: Last Vital Signs Pulse 88 05/19/23 10:21 BP 114/72 05/19/23 10:21 BMI result Body Mass Index 33.7 Assessment & Plan Assessment & Plan (1) Anemia: Code(s): D64.9 - Anemia, unspecified Plan: PLAN: 1/ cont with PPI 2/ cont TCA at 25 mg, increase claritin to BID 3/ consider VCE if worsening sx 4/ can increase metamucil to BID 5/ check vit C and D levels at next visit Coding Level of Care Code Est Pt Level 3 (44312) Diagnoses Anemia D64.9
[2023-05-19 10:21] VITALS: BP 114/72; PULSE 88; BMI 33.7
== END 2023-05-19 10:54 | disposition home or self-care (01) ==
PROVIDERS: PCP Internal Medicine; Visit Provider Internal Medicine Gastroenterology
DX: D64.9 Anemia, unspecified (principal)
CPT/HCPCS: 99213

== ENCOUNTER → 2023-05-19 10:17 | Outpatient (BNVA) | payer OTHER, SELFPAY | PROVIDERS: PCP Internal Medicine; Visit Provider Internal Medicine Gastroenterology ==

== ENCOUNTER 2023-08-16 12:41 | Emergency (ER) | payer OTHER, SELFPAY ==
--- NOTE | ~2023-08-16 | XR_ITS ---
EXAMINATION: XR FINGER, RIGHT CLINICAL INFORMATION: Injury ring finger. Pain, limited range of motion. COMPARISON: None available. TECHNIQUE: 3 views of the right fourth digit. FINDINGS: Fourth digit: Soft tissue swelling. Alignment is anatomic. No radiographically evident acute fracture or dislocation. Joint spaces are maintained. No radiopaque foreign body is identified in the soft tissues. Remainder of the osseous structures appear intact. XR/XR finger RT min 2V IMPRESSION: Fourth digit: No radiographic evidence of acute fracture or dislocation.
--- NOTE | 2023-08-16 12:48 | ED_ITS ---
HPI - General Adult General Chief complaint: Wound/Laceration Stated complaint: Finger lac/syncope Time Seen by Provider: 08/16/23 15:01 Source: patient, RN notes reviewed and old records reviewed Mode of arrival: ambulatory History of Present Illness ED Provider: Aure Maria PA-C HPI narrative: 42-year-old female with a past medical history of asthma, presenting to the ED complaining of laceration to right ring finger s/p slamming hand in metal door. States syncopized after incident due to pain, denies head trauma. Denies taking anticoagulation, headache, neck/back pain, abdominal pain, nausea/vomiting. Tetanus up-to-date. Related Data Home Medications ?Medication ?Instructions ?Recorded ?Confirmed sulfur-witch trinity leaf 150 mg tab PO 11/26/20 03/29/23 tablet levonorgestrel 21 mcg/24 hours (8 20 device intrauterine DAILY 03/28/22 03/29/23 yrs) 52 mg intrauterine device (Mirena) gabapentin 100 mg capsule 100 mg PO TID 11/21/22 03/29/23 ondansetron HCl 4 mg tablet mg PO 11/21/22 03/29/23 sumatriptan succinate 100 mg tablet 100 mg PO DIRECTED 11/21/22 03/29/23 ascorbic acid (vitamin C) 1,000 mg 1,000 mg PO DAILY 05/19/23 tablet Previous Rx's ?Medication ?Instructions ?Recorded cholecalciferol (vitamin D3) 25 25 mcg PO DAILY #90 caps 07/26/22 mcg (1,000 unit) capsule psyllium husk 3.4 gram/5.4 gram 1 tbsp PO BID #660 grams 11/21/22 oral powder (Metamucil) gentamicin 0.3 % eye drops 1 drp ophthalmic (eye) Q4H 5 days 05/08/23 #5 mL erythromycin 5 mg/gram (0.5 %) eye 0.5 inch ophthalmic (eye) TID #1 g 05/11/23 ointment esomeprazole magnesium 40 mg 40 mg PO DAILY #90 caps 05/12/23 capsule,delayed release dicyclomine 20 mg tablet 20 mg PO QID PRN for abdominal 05/24/23 pain #90 tabs escitalopram oxalate 10 mg tablet 10 mg PO DAILY 90 days #90 tabs 05/06/24 famotidine 40 mg tablet 40 mg PO BEDTIME #90 tabs 07/10/23 loratadine 10 mg tablet 10 mg PO BID 90 days #180 tabs 07/18/23 nortriptyline 25 mg capsule 25 mg PO BEDTIME #90 caps 08/11/23 Allergies Allergy/AdvReac Type Severity Reaction Status Date / Time amoxicillin [Amoxicillin] Allergy Severe anaphylaxis Verified 08/16/23 12:50 Penicillins Allergy Severe anaphylaxis Verified 08/16/23 12:50 Sulfa (Sulfonamide Allergy Severe Hives Verified 08/16/23 12:50 Antibiotics) codeine [Codeine] Allergy Intermediate rash Verified 08/16/23 12:50 almond Allergy Unknown Unknown Verified 08/16/23 12:50 cantaloupe Allergy Unknown Unknown Verified 08/16/23 12:50 corn Allergy Unknown Unknown Verified 08/16/23 12:50 hazelnut Allergy Unknown Unknown Verified 08/16/23 12:50 peanut Allergy Unknown Unknown Verified 08/16/23 12:50 pear Allergy Unknown Unknown Verified 08/16/23 12:50 pineapple Allergy Unknown Unknown Verified 08/16/23 12:50 soy Allergy Unknown Unknown Verified 08/16/23 12:50 walnut Allergy Unknown Unknown Verified 08/16/23 12:50 Review of Systems Review of Systems: Constitutional: No Fever, No Chills ENT/Mouth: No Ear Pain, No Nasal Congestion, No sore throat, No Rhinorrhea, No Swallowing Difficulty Cardiovascular: No Chest Pain, No SOB Respiratory: No Cough Gastrointestinal: No Nausea, No Vomiting, No Abdominal pain Genitourinary: No Dysuria, No Urinary Frequency, No Hematuria, No Flank Pain Musculoskeletal: + joint pain, No Myalgias, + Joint Swelling Skin: + Skin Lesions, No rash Neuro: No Weakness, No Numbness, No Paresthesias, +syncope Yes all other systems are reviewed and are negative Constitutional: Constitutional: Reports as per HPI Neurologic: Denies Abnormal speech present PMFSH Past Medical History Attestation statement: The following information was validated with the patient. Source: old records reviewed Medical History Abnormal Pap smear of cervix New daily persistent headache Physical exam Rash COVID-19 (~03/23/20) Obese External hemorrhoids with complication Irritable bowel syndrome with diarrhea Traumatic coccydynia Coccydynia PONV (postoperative nausea and vomiting) Back pain Peptic ulcer Asthma Surgical History History of colonoscopy [place] teeth removed H/O: hemorrhoidectomy Hx of excision of mass Family History Family History Father Alive and well Substance use disorder Mother Family history of high blood pressure History of hip replacement Brain aneurysm Social History Social History Household Members: Children and None Housing: House Alcohol intake: current Alcohol intake frequency: holidays/special occasions only Alcohol type: beer and hard liquor Patient Tobacco Use Status: Never used Tobacco e-Cigarette/Vaping Use: Never Used Second Hand Smoke Exposure: No Substance Use Type: Marijuana Advance Directives: No Advance Directives Information Provided: No service: No Current occupational status: employed 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 Current occupational exposures/hazards: No Cognitive needs: No Hearing needs: No Vision needs: No Physical Exam ED Vital Signs: Vital Signs - 24 hr 08/16/23 12:49 08/16/23 14:00 08/16/23 16:10 Temperature 99 F 98.4 F Pulse Rate 82 71 59 Respiratory Rate 16 16 Blood Pressure 133/81 137/78 138/79 Pulse Oximetry 94 96 97 Oxygen Delivery Method Room Air Room Air Room Air 08/16/23 17:14 Temperature 0 F L Pulse Rate 59 Respiratory Rate 16 Blood Pressure 138/79 Pulse Oximetry 97 Oxygen Delivery Method Room Air BMI result Body Mass Index 32.4 Const General: cooperative, healthy appearing and no acute distress Orientation/consciousness: patient oriented x3 Limitations: no limitations HENMT Head: Yes normal to inspection and Yes atraumatic Ears: hearing grossly normal bilaterally General nose exam: Normal external nose present Face and sinus: Yes normal facial exam Eyes General: appearance normal, both eyes and all related structures EOM: EOMs intact bilaterally Neck Neck: Yes normal visual inspection and Yes no meningeal signs Resp Effort & Inspection: normal respiratory effort and no respiratory distress Cardio Rate: regular rate Back/Spine/Pelvis Other: No midline cervical/thoracic/lumbar spinous tenderness/step-off or deformity Skin Other: right hand: + superficial laceration/skin flap noted to palmar aspect of distal ring finger. Tender to palpation. Bleeding controlled. FROM and NV intact. [id number] opposition intact Rashes: no rashes Neuro General: patient oriented x3, gait normal, tone normal, moves all extremities, no meningeal signs, no focal motor deficits and CN's II-XI intact bilaterally Cranial nerves: Yes CN's II-XII intact bilaterally Cognition (Neuro): normal cognition Speech: No Abnormal speech present Gait exam (Neuro): Normal gait present Motor exam (neuro): 5/5 motor strength present throughout Extrem General: Yes normal to inspection Course Course Course Narrative: This is a rapid medical exam performed by Ace Weldon NP: Additional HPI, ROS, PE not included below will be deferred to primary provider. Patient is a 42-year-old right hand dominant female presenting to the ED with injury to right 4th finger. States she accidentally closed hand in a metal door. Had synopal episode due to pain. Minor avulsion to palmar aspect, ecchymosis. Plan: xray XR finger RT min 2V IMPRESSION: Fourth digit: No radiographic evidence of acute fracture or dislocation. Results discussed with patient including worrisome signs and symptoms and strict return precautions, and when to return to the emergency department. They verbalized understanding and feel safe for discharge at this time. Procedures Laceration Laceration 1: Site: hand Side (If applicable): right Size (cm): 1 Description: flap Skin layer closed with: other (Dermabond) Medical Decision Making Medical Decision Making MDM Narrative: 42-year-old female with a past medical history of asthma, presenting to the ED complaining of laceration to right ring finger s/p slamming hand in metal door. On exam vital signs stable, NAD, nontoxic appearing physical exam as noted above. Concern for fracture vs sprain and laceration. Tetanus is up-to-date. Syncope likely from pain. Low suspicion for ACS/PE Plan: X-ray, Dermabond wound Please refer to course for remaining clinical decision making, interpretation of labs/imaging results, and discussions with consultants and/or family members. Differential Diagnosis Differential Diagnoses: The differential diagnosis associated with the presentation includes As above Admission/Observation Consideration of admission/observation: Escalation of care including admission/observation considered Independent Interpretation I performed an independent interpretation of an: Plain X-Ray Radiology Impression Discussion of test interpretation with radiology: I have reviewed the radiologist's reading. External Record Review External record reviewed: Inpatient record, Office record, Outpatient record, Prior outpatient labs, Prior outpatient radiology, Primary care record and Outside ED record Tests considered The following testing was considered but not selected: As above Prescription Management I considered prescription management with: Pain Medication Discharge Plan Discharge Clinical Impression: Crushing injury of finger of right hand, Finger laceration Patient Disposition: Home, Self-Care Instructions: Finger Laceration (ED), Crush Injury (ED) Additional Instructions: Your x-rays do not show a fracture Your laceration was repaired with skin glue. Please keep dry and clean Skin glue will fall off on its own If the area begins to look infected, as read or there is pus drainage or you have fever return to the ED Ice and elevate her finger Follow-up with your doctor Prescriptions: No Action cholecalciferol (vitamin D3) 25 mcg (1,000 unit) capsule 25 mcg PO DAILY Qty: 90 2RF erythromycin 5 mg/gram (0.5 %) ointment 0.5 inch ophthalmic (eye) TID Qty: 1 0RF esomeprazole magnesium 40 mg capsule,delayed release(DR/EC) 40 mg PO DAILY Qty: 90 1RF dicyclomine 20 mg tablet 20 mg PO QID PRN (Reason: for abdominal pain) Qty: 90 1RF famotidine 40 mg tablet 40 mg PO BEDTIME Qty: 90 1RF escitalopram oxalate 10 mg tablet 10 mg PO DAILY 90 Days Qty: 90 1RF loratadine 10 mg tablet 10 mg PO BID 90 Days Qty: 180 0RF nortriptyline 25 mg capsule 25 mg PO BEDTIME Qty: 90 0RF gentamicin 0.3 % drops 1 drp ophthalmic (eye) Q4H 5 Days Qty: 5 0RF sulfur-witch trinity leaf 150 mg tablet PO Mirena 20 mcg/24 hours (8 yrs) 52 mg intrauterine device 20 device intrauterine DAILY ascorbic acid (vitamin C) 1,000 mg tablet 1,000 mg PO DAILY gabapentin 100 mg capsule 100 mg PO TID ondansetron HCl 4 mg tablet PO sumatriptan succinate 100 mg tablet 100 mg PO DIRECTED Metamucil 3.4 gram/5.4 gram powder 1 tbsp PO BID Qty: 660 0RF Rx Instructions: mix into at least 8 oz of water or juice before administering Referrals: Regina Sullivan MD [Primary Care Provider] - 1 week Interventions: ED Discharge Assessment Last Done: 08/16/23 17:14 Discharge Date/Time: 08/16/23 17:15 Print Language: Telugu
[2023-08-16 12:49] VITALS: BP 133/81; PULSE 82; RESP 16; TEMP 37.2; O2SAT 94; BMI 32.4
[2023-08-16 14:00] VITALS: BP 137/78; PULSE 71; TEMP 36.9; O2SAT 96
[2023-08-16 16:10] VITALS: BP 138/79; PULSE 59; RESP 16; O2SAT 97
--- NOTE | 2023-08-16 16:12 | PC.NURSE ---
Patient awake and alert. skin pwd. resp even and non labored. speaking in full, clear sentences. reports slamming her right ring finger in a door at home today causing an avulsion to the tip of the finger. patient reports after the incident she had a syncopal episode for approx 2 minutes. denies chest pain or dizziness prior to the incident, patient states she thinks she had the syncopal episode r/t seeing the blood. denies dizziness, lightheadedness, or chest pain at this time. sinus fallon via tele at 59. dermabond applied to finger in triage. awaiting x ray result. pt aware of plan of care
[2023-08-16 17:14] VITALS: BP 138/79; PULSE 59; RESP 16; TEMP -17.7; TEMP 0; O2SAT 97
== END 2023-08-16 17:15 | disposition home or self-care (01) ==
PROVIDERS: Emergency Provider Emergency Medicine Emergency Medical Services; PCP Internal Medicine
DX: S61.214A Laceration without foreign body of right ring finger without damage to nail, initial encounter (principal); W23.1XXA Caught, crushed, jammed, or pinched between stationary objects, initial encounter; Y93.9 Activity, unspecified; Y92.9 Unspecified place or not applicable; Y99.9 Unspecified external cause status
CPT/HCPCS: 73140; 99283; 99284

== ENCOUNTER 2023-09-15 10:42 | Outpatient (AMB) | payer OTHER, SELFPAY ==
--- NOTE | 2023-09-15 10:44 | MHC.OFFVIS ---
Vital Signs 09/15/23 10:47 Height 5 ft 5 in Weight 202 lb 13.204 oz BMI 33.7 BP 125/84 Blood Pressure Location Lt brachial Position Sitting Pulse 82 Intake Visit Reasons: 4 month follow up Intake Note: Radha presents in the office as a 4 month follow up. CC: Months since her last headache. GI symptoms - states that they are all the same. If she eats anything out of her safe foods she will have flare ups. She has gotten better with fitness and eating foods she does not feel much of a difference GI kinney. 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 Allergies amoxicillin [Amoxicillin] Allergy (Severe, Verified 09/15/23 10:49) anaphylaxis Penicillins Allergy (Severe, Verified 09/15/23 10:49) anaphylaxis Sulfa (Sulfonamide Antibiotics) Allergy (Severe, Verified 09/15/23 10:49) Hives codeine [Codeine] Allergy (Intermediate, Verified 09/15/23 10:49) rash almond Allergy (Unknown, Verified 09/15/23 10:49) Unknown cantaloupe Allergy (Unknown, Verified 09/15/23 10:49) Unknown corn Allergy (Unknown, Verified 09/15/23 10:49) Unknown hazelnut Allergy (Unknown, Verified 09/15/23 10:49) Unknown peanut Allergy (Unknown, Verified 09/15/23 10:49) Unknown pear Allergy (Unknown, Verified 09/15/23 10:49) Unknown pineapple Allergy (Unknown, Verified 09/15/23 10:49) Unknown soy Allergy (Unknown, Verified 09/15/23 10:49) Unknown walnut Allergy (Unknown, Verified 09/15/23 10:49) Unknown HPI HPI 4 month follow up: Details: 42 yr old f here for f/u RECAP: she has sensitive stomach for long time this is cramping usu around the belly button area also under left sided ribs, major diarrhea, instantly after eating certain foods no nausea or vomiting she also has post concussion headaches she started amitriptiline 10 mg at night and it helps no heartburn no dysphagia bloating when eats certain foods she has alternating bowel habits between constipation and diarrhea she avoids many types of foods occ has blood in stool--mixed and on wiping red meat, fast foods, fried foods, processed foods, dairy she did try low fodmap diet in past, hard to know what to reintroduce other family also have similar sx, incl mother and aunts no mouth ulcers she has kness and hip stiffness, worse in morning she had asthma in past occ alcohol and THC use colonoscopy 2019--internal hemorrhoid, nml biopsies of colon LABS: nml HGB, rasied MCV, nml BMP CT 2019---hemorrhagic cyst, otherwise nml EGD 01/25 Findings: Larynx:normal Esophagus: GE junction at 38 cm, diaphragm hiatus at 40 cm, 2 cm sliding hiatal hernia noted, bogginess and erythema at GEJ with some salmon pink islands, bx and brushings taken for WATS, also bx from distal and proximal esophagus. schatzki ring noted as well Stomach: Patchy gastric erythema with erosions at antrum. Biopsies were obtained. Grade 2 flap valve on retroflexed examination of the cardia. Duodenum: Bulbar duodenitis, bx taken Intervention: Biopsies as noted above, brushings Impression/Findings: sliding hiatal hernia schatzki ring esophagitis erosive gastritis duodenitis US doppler-- suggestive of stenosis, but CTA 02/[address] A/P: 03/2022--- equivocal stranding around mesentry around pancreas, lipase was nml, as were LFT GES 03/2022--- rapid emptying only 2% by 2 hrs INTERIM: Neuro sx are getting better she had a job change, exercise more consistent--much less stress works with local [employer] she is taking bentyl TID, nortriptyline, nexium, vit D and C, pepcid at night and claritin (feels this has helped a lot) she still has LUQ, dull ache, always there, 1-2 in severity not related to movement, bending or coughing, more food related--after eating bowel habits are erratic at times avoiding allergens --soy and nuts, oily foods etc EXAM: GENERAL: The patient is well developed and nontoxic. VITAL SIGNS:see workflow HEENT: Nonicteric sclerae, PERRLA, EOMI. Oropharynx clear. Moist mucous membranes. Conjunctivae appear well perfused. No thyroid mass. CHEST: Chest wall is nontender. HEART: Regular rate and rhythm without murmurs. LUNGS: Clear to auscultation bilaterally. ABDOMEN: Soft, positive bowel sounds, tender epigastrium and LUQ, no organomegaly.no flank tenderness SKIN: No rash, no excessive bruising, petechiae, or purpura. NEUROLOGIC: Cranial nerves II-XII intact without motor/sensory deficit. A/P: 1/ post prandial diarrhea and abdominal pain, with RUQ tenderness and LUQ pain, uncertain etiology with multiple testing r/o vascular disease PLAN: 1/ capsule endoscopy 2/ repeat US to r/o GB sludge, stones, if neg maybe hida 3/ recheck labs today incl fecal lacto and CRP, RAST form [facility] Medical History Abnormal Pap smear of cervix New daily persistent headache Physical exam Rash COVID-19 (~03/23/20) Obese External hemorrhoids with complication Irritable bowel syndrome with diarrhea Traumatic coccydynia Coccydynia PONV (postoperative nausea and vomiting) Back pain Peptic ulcer Asthma Surgical History History of colonoscopy [place] teeth removed H/O: hemorrhoidectomy Hx of excision of mass Family History Father Alive and well Substance use disorder Mother Family history of high blood pressure History of hip replacement Brain aneurysm Social History Household Members: Children and None Housing: House Alcohol intake: current Alcohol intake frequency: holidays/special occasions only Alcohol type: beer and hard liquor Patient Tobacco Use Status: Never used Tobacco e-Cigarette/Vaping Use: Never Used Second Hand Smoke Exposure: No Substance Use Type: Marijuana service: No Current occupational status: employed 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 Current occupational exposures/hazards: No Cognitive needs: No Hearing needs: No Vision needs: No Female Reproductive History Menstrual Age of Menarche: 10 Physical Exam Vital Signs: Last Vital Signs Pulse 82 09/15/23 10:47 BP 125/84 09/15/23 10:47 BMI result Body Mass Index 33.7 Assessment & Plan Assessment & Plan (1) RUQ pain: Code(s): R10.11 - Right upper quadrant pain Category: Medical Plan: see above Orders: Orders Rast Allergen Today R10.11 - Right upper quadrant pain, Z91.018 - Allergy to other foods Histamine Plasma Today R10.11 - Right upper quadrant pain C Reactive Protein Today R10.11 - Right upper quadrant pain Complete Blood Count Auto Diff Today R10.11 - Right upper quadrant pain Comprehensive Met. Panel Today K75.81 - Nonalcoholic steatohepatitis (ESCOBAR), R10.11 - Right upper quadrant pain Immunoglobulin G Subclasses Today R10.11 - Right upper quadrant pain Lactoferrin, Fecal, Quant. Today K51.50 - Left sided colitis without complications, R10.11 - Right upper quadrant pain US abdomen comp w elastography Today R10.11 - Right upper quadrant pain Coding Level of Care Code Est Pt Level 4 (71688) Diagnoses RUQ pain R10.11
[2023-09-15 10:47] VITALS: BP 125/84; PULSE 82; BMI 33.7
== END 2023-09-15 11:37 | disposition home or self-care (01) ==
PROVIDERS: PCP Internal Medicine; Visit Provider Internal Medicine Gastroenterology
DX: R10.11 Right upper quadrant pain (principal)
CPT/HCPCS: 99214

== ENCOUNTER → 2023-09-15 10:42 | Outpatient (BNVA) | payer OTHER, SELFPAY | PROVIDERS: PCP Internal Medicine; Visit Provider Internal Medicine Gastroenterology ==

== ENCOUNTER 2023-09-29 08:18 | Outpatient (REF) | payer OTHER, SELFPAY ==
--- NOTE | ~2023-09-29 | US_ITS ---
EXAMINATION: US COMPLETE ABDOMEN WITH LIVER ELASTOGRAPHY CLINICAL INFORMATION: Epigastric and right upper quadrant pain. COMPARISON: CT abdomen and pelvis dated 06/24/2022; abdominal ultrasound dated 03/09/2022. TECHNIQUE: Real-time imaging of the abdominal viscera. Noninvasive ultrasound liver fibrosis assessment is performed using Narendra ElastPQ point quantification shear wave elastography (pSWE) with a C5-2 MHz transducer. Multiple elastography samples are obtained. FINDINGS: PANCREAS: Normal. The visualized pancreatic head and body are normal in appearance. The remainder of the pancreas is obscured from visualization by the overlying bowel gas. ABDOMINAL AORTA: The proximal, middle, and distal aortic segments are normal in caliber. INFERIOR VENA CAVA: Visualized portions are normal. LIVER: The liver demonstrates normal size, contour and increased echogenicity. No focal lesion or intrahepatic biliary duct dilatation. The right lobe measures 15.1 cm in length. The left lobe measures 7.5 cm in length. Portal flow is towards the liver (hepatopetal). Shear wave liver elastography median stiffness is 1.40 m/s (reference: normal median stiffness is 1.3 m/s or less). IQR/median stiffness to assess sampling precision is 0.14 (reference: good quality data set is IQR/median stiffness of 0.15 or less). GALLBLADDER: Normal. The gallbladder is physiologically distended without evidence of stones, sludge, polyps, wall thickening or pericholecystic fluid. COMMON BILE DUCT: Normal in caliber measuring 0.3 cm in diameter. RIGHT KIDNEY: Normal. No hydronephrosis. No renal calculi or focal parenchymal lesions. The kidney measures 10.4 cm in maximum dimension. LEFT KIDNEY: Normal. No hydronephrosis. No renal calculi or focal parenchymal lesions. The kidney measures 10.4 cm in maximum dimension. SPLEEN: Normal. The spleen measures 8.9 cm in maximum dimension. FREE FLUID: None. US/US abdomen comp w elastography IMPRESSION: 1. There is generalized increase in hepatic echotexture, consistent with fatty infiltration or hepatocellular disease. Please correlate clinically. No focal hepatic mass or intrahepatic biliary dilatation is seen. 2. Liver elastography: In the absence of other known clinical signs, measurements rule out compensated advanced chronic liver disease. If there are known clinical signs, further testing may be needed for confirmation. REFERENCE: Society of Radiologists in Ultrasound Liver Stiffness Thresholds (2020): LIVER STIFFNESS THRESHOLDS: *Liver Stiffness equal or less than 1.3 m/s: High probability of being normal. *Liver Stiffness less than 1.7 m/s: In the absence of other known clinical signs, rules out compensated advanced chronic liver disease. *Liver Stiffness 1.7-2.1 m/s: Suggestive of compensated advanced chronic liver disease but need further test for confirmation. *Liver Stiffness over 2.1 m/s: Rules in compensated advanced chronic liver disease. *Liver Stiffness over 2.4 m/s: Suggestive of clinically significant portal hypertension. QUALITY OF DATA SET: *IQR/Median value equal or less than 0.15 implies a quality data set. *IQR/Median value over 0.15 implies a poor quality data set. SIGNIFICANT CHANGE FROM PRIOR EXAM: Significant change if liver stiffness measurement is 10% or greater from prior exam. OTHER CONSIDERATIONS: The stage of liver fibrosis may be overestimated in the setting of acute hepatitis, liver inflammation, elevated liver function tests, hepatic vascular congestion, obstructive cholestasis, non-fasting state, and infiltrative diseases such as amyloidosis and lymphoma. In some patients with NAFLD, the liver stiffness thresholds for compensated advanced chronic liver disease may be lower. In causes other than viral hepatitis and NAFLD, liver stiffness thresholds are not well established. Electronically signed by: Willi Piper MD 10/29/2023 09:51 PM EDT
== END 2023-09-29 08:19 | disposition home or self-care (01) ==
LOC: HO.US 08:18
PROVIDERS: PCP Internal Medicine; Visit Provider Internal Medicine Gastroenterology
DX: R10.11 Right upper quadrant pain (principal)
CPT/HCPCS: 76700; 76981

== ENCOUNTER 2023-10-04 08:28 | Outpatient (REF) | payer OTHER, SELFPAY ==
[2023-10-04 08:51] LABS: MANUAL DIFF FLAG NO
[2023-10-04 09:18] LABS: Basophils Percent Auto 0.3 % (0-2); Eosinophils Absolute Auto 0.3 X10*3/uL (0.0-0.4); Eosinophils Percent Auto 3.1 % (0-4); Hematocrit 37.8 % (37.0-47.0); Hemoglobin 12.8 g/dl (12.0-16.0); Imm Gran Abs Auto 0.04 X10*3/uL (0.00-0.03); Imm Gran Pct Auto 0.4 % (0.0-0.4); Lymphocytes Absolute Auto 4.4 X10*3/uL (1.2-4.9); Lymphocytes Percent Auto 46.3 % (20-40); Mean Corpuscular HGB Conc 33.9 g/dl (31.0-35.0); Mean Corpuscular Hemoglobin 32.7 pg (27.0-33.0); Mean Corpuscular Volume 96.7 fL (80.0-98.0); Mean Platelet Volume 9.6 fL (9.4-12.3); Monocytes Absolute Auto 0.6 X10*3/uL (0.1-1.2); Monocytes Percent Auto 6.2 % (2-11); Neutrophils Absolute Auto 4.2 x10*3/uL (2.0-8.3); Neutrophils Percent Auto 43.7 % (45-73); Platelet Count 271 X10*3/uL (160-400); Red Blood Count 3.91 X10*6/uL (4.20-5.50); Red Cell Distribution Width 14.5 % (11.0-16.0); White Blood Count 9.5 X10*3/uL (4.8-10.8)
[2023-10-04 10:05] LABS: Alanine Aminotransferase 9 U/L (0-31); Albumin Level 3.8 g/dL (3.5-5.0); Alkaline Phosphatase 68 U/L (39-117); Anion Gap 9 (12-20); Aspartate Amino Transferase 16 U/L (5-31); Bilirubin Total 0.2 mg/dL (0.0-1.0); Blood Urea Nitrogen 12 mg/dL (9-16); C Reactive Protein 1.01 mg/dL (< or = 0.50); Calcium 8.5 mg/dL (8.4-10.2); Carbon Dioxide 24 mmol/L (22-29); Chloride 108 mmol/L (96-108); Estimated Glomerular Filt Rate > 60; Glucose Random 90 mg/dL (60-115); Potassium 4.1 mmol/L (3.3-5.1); Sodium 137 mmol/L (135-145); Total Protein 6.5 g/dL (6.5-8.0)
[2023-10-05 14:28] LABS: Immunoglobulin G Subclass 1 560 mg/dL (382-929); Immunoglobulin G Subclass 2 152 mg/dL (241-700); Immunoglobulin G Subclass 3 18 mg/dL (22-178); Immunoglobulin G Subclass 4 13.6 mg/dL (4-86); Immunoglobulin G Total 907 mg/dL (600-1640)
[2023-10-10 17:04] LABS: Histamine Plasma <1.5 ng/mL (< OR = 1.8)
[2023-10-11 16:09] LABS: Lactoferrin, Fecal, Quant. <6.25 mcg/mL (<7.25)
== END 2023-10-04 08:29 | disposition home or self-care (01) ==
LOC: HO.LAB 08:28
PROVIDERS: PCP Internal Medicine; Visit Provider Internal Medicine Gastroenterology
DX: R10.11 Right upper quadrant pain (principal); K75.81 Nonalcoholic steatohepatitis (NASH); K51.50 Left sided colitis without complications; Z91.018 Allergy to other foods
CPT/HCPCS: 36415; 80053; 82784; 83088; 83631; 85025; 86003; 86140

== ENCOUNTER 2024-09-30 17:43 | Emergency (ER) | payer SELFPAY ==
--- NOTE | ~2024-09-30 | CT_ITS ---
CLINICAL HISTORY: severe headache CT head without contrast. COMPARISON: None provided. FINDINGS: The visualized paranasal sinuses are clear. The mastoid air cells are clear. No calvarial fracture. No evidence for mass or mass effect. No intracranial hemorrhage or abnormal extra-axial fluid collection. No CT evidence of acute infarct. No evidence of hydrocephalus. The basilar cisterns are patent. Posterior fossa appears unremarkable. IMPRESSION: 1. No acute intracranial findings. This document has been electronically signed by: Robin Barkley MD on 09/30/2024 18:44:46
[2024-09-30 17:47] VITALS: BP 146/74; PULSE 91; RESP 18; TEMP 36.5; O2SAT 100; BMI 33.3
--- NOTE | 2024-09-30 17:50 | ED_ITS ---
HPI - General Adult General Chief complaint: Nausea/Vomiting/Diarrhea Stated complaint: vomiting Time Seen by Provider: 09/30/24 18:25 Source: patient Mode of arrival: ambulatory Limitations: no limitations History of Present Illness ED Provider: Young Jacobsen PA-C HPI narrative: 43-year-old female with medical history of IBS, asthma, presents to the ED today due to headache, with nausea and vomiting. Patient states she awoke this morning with headache, took aspirin and Tylenol without relief. Around 3:00 p.m. began vomiting states she has had around 5 episodes of vomiting before presenting to the department. Patient states headache feels dull and throbbing in the occipital area of her head patient reports she has old injury in 2021 after falling and hitting her head on the ice in the same area. Patient states she has not had any increased physical activity, has not been outside in the heat, has been trying to stay hydrated with water today. 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 Patient states she had an episode of incontinence when she was vomiting forcefully. Additionally patient states she has felt some heaviness and aching of the right arm that starts at the shoulder, and travels down the limb. Denies chest pain, shortness of breath, abdominal pain, black/tarry stool, urinary symptoms, visual changes Related Data Home Medications ?Medication ?Instructions ?Recorded ?Confirmed sulfur-witch trinity leaf 150 mg tab PO 11/26/20 4 tablet levonorgestrel (Mirena) 20 device intrauterine DAILY 03/28/22 03/29/23 gabapentin 100 mg capsule 100 mg PO TID 11/21/2203/29 ondansetron HCl 4 mg tablet mg PO 11/21/22 03/29/23 sumatriptan succinate 100 mg tablet 100 mg PO DIREC DIO 11/21/22 03/29/23 ascorbic acid (vitamin C) 1,000 mg 1,000 mg PO DAILY 0 05/19/23 tablet pantoprazole 40 mg tablet,delayed 40 mg PO DAILY 09/14 release Previous Rx's ?Medication ?Instructions ?Recorded cholecalciferol (vitamin D3) 25 25 mcg PO DAILY #90 ca ps 07/26/22 mcg (1,000 unit) capsule gentamicin 0.3 % eye drops 1 drp ophthalmic (eye) Q4H 5 days 05/08/23 #5 mL erythromycin 5 mg/gram (0.5 %) eye 0.5 inch ophthalmic (eye) TID #1 g 05/11/23 ointment dicyclomine 20 mg tablet 20 mg PO QID PRN for abdomin al 05/24/23 pain #90 tabs peg-electrolyte solution 420 gram 240 ml PO Q10M #2,00 0 mL 09/15/23 oral solution loratadine 10 mg tablet 10 mg PO BID 90 days #180 ta bs 01/09/24 famotidine 40 mg tablet 40 mg PO BEDTIME #90 tabs escitalopram oxalate 10 mg tablet 10 mg PO DAILY 90 da ys #90 tabs 09/10/24 nortriptyline 25 mg capsule 25 mg PO BEDTIME #90 caps 09/10/24 Allergies Allergy/AdvReac Type Severity Reaction Status Date / Time amoxicillin (Amoxicillin) Allergy Severe anaphylaxis Verified 09/30/24 17:51 Penicillins Allergy Severe anaphylaxis Verified 09/30/24 17:51 Sulfa (Sulfonamide Allergy Severe Hives Verified 09/30/24 17:51 Antibiotics) codeine (Codeine) Allergy Intermediate rash Verified 09/30/24 17:51 almond Allergy Unknown Unknown Verified 09/30/24 17:51 cantaloupe Allergy Unknown Unknown Verified 09/30/24 17:51 corn Allergy Unknown Unknown Verified 09/30/24 17:51 hazelnut Allergy Unknown Unknown Verified 09/30/24 17:51 peanut Allergy Unknown Unknown Verified 09/30/24 17:51 pear Allergy Unknown Unknown Verified 09/30/24 17:51 pineapple Allergy Unknown Unknown Verified 09/30/24 17:51 soy Allergy Unknown Unknown Verified 09/30/24 17:51 walnut Allergy Unknown Unknown Verified 09/30/24 17:51 Review of Systems 2 Review of Systems: CONST: Negative for fever, body aches and chills. HENT: Negative for neck pain/stiffness, headache, congestion, sore throat, swelling. POS occipital headache EYES: Negative for discharge/pain or vision changes. RESP: Negative for cough/hemoptysis and shortness of breath. CV: Negative chest pain, difficulty breathing, palpitations. ABD: Negative pain, nausea, vomiting. : Negative increase frequency, dysuria, blood in urine or stool. MUSC: Negative for muscle aches, edema. POS R arm heaviness SKIN: Negative rash, lesions/sores. NEURO: Negative headache, dizziness, weakness. Yes all other systems are reviewed and are negative [facility] Past Medical History Medical History Abnormal Pap smear of cervix New daily persistent headache Physical exam Rash COVID-19 (~03/23/20) Obese External hemorrhoids with complication Irritable bowel syndrome with diarrhea Traumatic coccydynia Coccydynia PONV (postoperative nausea and vomiting) Back pain Peptic ulcer Asthma Surgical History History of colonoscopy [place] teeth removed H/O: hemorrhoidectomy Hx of excision of mass Family History Family History Father Alive and well Substance use disorder Mother Family history of high blood pressure History of hip replacement Brain aneurysm Social History Social History Household Members: Children and None Housing: House Alcohol intake: current Alcohol intake frequency: holidays/special occasions only Alcohol type: beer and hard liquor Patient Tobacco Use Status: Never used Tobacco Smoked in Last 30 Days: No e-Cigarette/Vaping Use: Never Used Second Hand Smoke Exposure: No Substance Use Type: Marijuana Advance Directives: No Advance Directives Information Provided: No service: No Current occupational status: employed 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 HEENT: ?NC, AT. MMM. EOMI, clear conjunctiva, oropharynx clear. NECK: ?Supple without lymphadenopathy.? No stiffness or restricted ROM. HEART:? Normal rate and regular rhythm, normal S1/S2, no m/r/g LUNGS:? CTAB, moving air well. No crackles or wheezes are heard. ABDOMEN: ?Soft, nontender, nondistended with good bowel sounds heard. EXTREMITIES: ?Without cyanosis, clubbing or edema. NEUROLOGICAL: ?Grossly nonfocal. Alert and oriented, moving all 4 extremities. Strength 5/5 of upper extremities, strength 5/5 of lower extremities, no facial droop, no slurring, SILT of right arm Skin: ?Warm and dry without any rash. Course Course Course Narrative: This is a rapid medical exam performed by Ace Weldon NP: Additional HPI, ROS, PE not included below will be deferred to primary provider. Patient is a 43-year-old female presenting to the ED with complaint of severe right occipital headache since this am with associated nausea and vomiting, episode of urinary incontinence while vomiting. Prior head injury in 2021 to same area. Denies history of migraines. Plan: Labs, CT, viral swabs Medications Administered Discontinued Medications Generic Name Dose Route Start Last Admin Trade Name Freq PRN Reason Stop Dose Admin Diphenhydramine HCl 25 mg 09/30/24 20:12 09/30/24 20:29 Diphenhydramine Hcl 50 Mg/Ml Vial IVPUSH 09/30/24 20:13 25 mg ONCE ONE Administration Sodium Chloride 1,000 mls @ 999 mls/hr 09/30/24 18:45 09/30/24 19:49 Ns IV 09/30/24 19:45 Infused .Q1H1M DIONNE Infusion Sodium Chloride 1,000 mls @ 999 mls/hr 09/30/24 19:57 09/30/24 19:59 Ns IV 09/30/24 20:57 999 mls/hr .Q1H1M ONE Administration Ketorolac Tromethamine 15 mg 09/30/24 19:27 09/30/24 19:48 Ketorolac Tromethamine 15 Mg/Ml Vial IVPUSH 09/30/24 19:28 15 mg ONCE ONE Administration Metoclopramide HCl 10 mg 09/30/24 20:12 09/30/24 20:26 Metoclopramide Hcl 10 Mg/2 Ml Vial IVPUSH 09/30/24 20:13 10 mg ONCE ONE Administration Ondansetron HCl 4 mg 09/30/24 18:35 09/30/24 18:48 Ondansetron Hcl 4 Mg/2 Ml Vial IVPUSH 09/30/24 18:36 4 mg ONCE ONE Administration Pantoprazole Sodium 40 mg 09/30/24 19:27 09/30/24 19:49 Pantoprazole Sodium 40 Mg/10 Ml Vial IVPUSH 09/30/24 19:28 40 mg ONCE ONE Administration Medical Decision Making Medical Decision Making MDM Narrative: 43-year-old female with medical history of IBS, asthma, presents to the ED today due to headache, with nausea and vomiting. Patient states she awoke this morning with headache, took aspirin and Tylenol without relief. Around 3:00 p.m. began vomiting states she has had around 5 episodes of vomiting before presenting to the department. Patient states headache feels dull and throbbing in the occipital area of her head patient reports she has old injury in 2021 after falling and hitting her head on the ice in the same area. Patient states she has not had any increased physical activity, has not been outside in the heat, has been trying to stay hydrated with water today. 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 Patient states she had an episode of incontinence when she was vomiting forcefully. Patient states she did have history of migraines after fall with head strike in 2021, this headache feels similar to migraines in the past. Additionally patient states she has felt some heaviness and aching of the right arm that starts at the shoulder, and travels down the limb VSS, no acute distress, nontoxic appearing BP 146/74, pulse rate 64 beats per minute, O2 saturation 100% on room air. Physical exam reveals normal rate and rhythm, no murmurs/rubs/gallops, lungs clear to auscultation bilaterally, abdomen soft nontender, no focal neurological deficits, strength 5/5 upper extremities, strength 5/5 lower extremities. Right shoulder with full ROM, SILT, radial pulses 2+. Labs revealed leukocytosis at 12.8, stable H&H, no evidence of electrolyte derangement. Viral serology negative. UA negative for infection. EKG normal sinus rhythm, without axis deviation, no ST elevation/depression/T- wave abnormalities, initial troponin undetectable less than 2.7- less likely ACS Head CT without acute intracranial findings. Patient states headache has improved slightly since coming to the department, receiving IV fluids, 4 mg Zofran but still present. Course 20:06- patient took aspirin and Tylenol prior to arrival. Will medicate with 15 mg IV Toradol, 40 mg IV pantoprazole, 10mg reglan, 25mg benadryl for pain management of migraine and reassess. 21:05- patient is migraine improved after medicating with Reglan, Benadryl, Toradol and is ready to go home for self-care. I counseled patient on alternating Tylenol and Motrin for management of headache, taking the next 2 days off of the electronics, and resting and hydrating. Patient agreeable to plan. Differential Diagnosis Differential Diagnoses: The differential diagnosis associated with the presentation includes ACS ICH Migraine Tension headache Electrolyte abnormality Admission/Observation Consideration of admission/observation: Escalation of care including admission/observation considered Lab Data MDM Lab Attestation statement: I reviewed the patient's lab results. 09/30/24 18:26 09/30/24 18:26 Labs: Lab Results 09/30/24 09/30/24 Range/Units 18:26 19:35 WBC 12.8 H (4.8-10.8) X10*3/uL RBC 3.96 L (4.20-5.50) X10*6/uL Hgb 13.1 (12.0-16.0) g/dl Hct 37.6 (37.0-47.0) % MCV 94.9 (80.0-98.0) fL MCH 33.1 H (27.0-33.0) pg MCHC 34.8 (31.0-35.0) g/dl RDW 14.2 (11.0-16.0) % Plt Count 297 (160-400) X10*3/uL MPV 9.7 (9.4-12.3) fL Immature Gran % (Auto) 0.2 (0.0-0.4) % Neut % (Auto) 55.5 (45-73) % Lymph % (Auto) 35.5 (20-40) % [place] % (Auto) 7.2 (2-11) % Eos % (Auto) 1.2 (0-4) % Baso % (Auto) 0.4 (0-2) % Lymph # (Auto) 4.5 (1.2-4.9) X10*3/uL [place] # (Auto) 0.9 (0.1-1.2) X10*3/uL Eos # (Auto) 0.2 (0.0-0.4) X10*3/uL Baso # (Auto) 0.1 (0.0-0.2) X10*3/uL Abs Immat Gran (auto) 0.03 (0.00-0.03) X10*3/uL Absolute Neuts (auto) 7.1 (2.0-8.3) x10*3/uL Absolute Nucleated RBC 0.000 (0.0-0.012) X10*3/uL Nucleated RBC % (auto) 0.0 (0.0-0.2) /100WBC Sodium 140 (135-145) mmol/L Potassium 3.8 (3.3-5.1) mmol/L Chloride 108 (96-108) mmol/L Carbon Dioxide 20 L (22-29) mmol/L Anion Gap 16 (12-20) BUN 9 (9-16) mg/dL Creatinine 0.75 (0.5-1.4) mg/dL Estim Creat Clear Calc 105.4 Estimated GFR > 60 Random Glucose 134 H (60-115) mg/dL Calcium 9.0 (8.4-10.2) mg/dL Magnesium 2.0 (1.6-2.6) mg/dL Total Bilirubin 0.3 (0.0-1.0) mg/dL AST 23 (5-31) U/L ALT < 6 (0-31) U/L Alkaline Phosphatase 78 (39-117) U/L Troponin I High Sens < 2.7 (<3.5-17.0) ng/L Total Protein 7.8 (6.5-8.0) g/dL Albumin 4.7 (3.5-5.0) g/dL Urine Color Dark Yellow Urine Appearance Clear Urine pH 5.0 (5.0-9.0) Ur Specific [place] 1.025 (1.005-1.025) Urine Protein Trace (Neg-Trace) mg/dL Urine Glucose (UA) Negative (Negative) mg/dL Urine Ketones 15 (Negative) mg/dL Urine Blood Negative (Negative) Urine Nitrite Negative (Negative) Ur Leukocyte Esterase Negative (Negative) Influenza Type A (PCR) NEGATIVE (Negative) Influenza Type B (PCR) NEGATIVE (Negative) RSV RNA Qual (PCR) NEGATIVE (Negative) SARS-CoV-2 RNA (RT-PCR) NEGATIVE (Negative) Independent Interpretation I performed an independent interpretation of an: EKG and CT Scan Interpretation: I independently interpreted the EKG as normal sinus rhythm, the ST elevation/depressions, T-wave abnormalities I independently interpreted the CT scan of head brain which does not reveal any ICH, masses, I agree with the radiologist's interpretation Radiology Impression Discussion of test interpretation with radiology: I have reviewed the radiologist's reading. Radiologist Impression: CT head/brain FINDINGS: The visualized paranasal sinuses are clear. The mastoid air cells are clear. No calvarial fracture. No evidence for mass or mass effect. No intracranial hemorrhage or abnormal extra-axial fluid collection. No CT evidence of acute infarct. No evidence of hydrocephalus. The basilar cisterns are patent. Posterior fossa appears unremarkable. IMPRESSION: 1. No acute intracranial findings. This document has been electronically signed by: Robin Barkley MD on 09/30/2024 18:44:46 Dictated By: Robin Barkley MD Signed By: <Electronically signed by Robin Barkley MD in OV> 09/30/24 1846 External Record Review External record reviewed: Inpatient record, Office record and Outpatient record Chronic Conditions Patient?s care impacted by: Other (IBS, anxiety) Discharge Plan Discharge Clinical Impression: Migraine Patient Disposition: Home, Self-Care Instructions: Migraine Headache (ED) Additional Instructions: You were seen in the emergency department today due to headache, nausea, vomiting. Your labs today revealed a mild increase of white blood cells of 12.8, this is most likely due to vomiting, as this can elevate your white blood cell count, without evidence of electrolyte imbalance. Your EKG showed normal sinus rhythm, your troponin which was the lab that we use to detect any strain or damage to your heart was negative and undetectable which is reassuring that you were not experiencing any acute cardiac process. Your flu/COVID/RSV swabs were negative. Your vital signs were stable. You had a CT head brain imaging done which did not reveal any evidence of hemorrhage. You were medicated in the department with 2 L IV fluids, 4 mg IV Zofran for nausea, 15 mg IV Toradol which is a strong NSAID, 10 mg of IV Reglan which was an antinausea medication that is used to treat migraines, and 25 mg of IV Benadryl which was also used to treat migraines. With good relief of your symptoms. While experiencing this migraine, try to refrain from use of computers, screens as this can exacerbate the headache. Make sure to stay hydrated with water, sports drinks for electrolytes, and plenty of rest. You should follow up with your PCP to ensure improvement. Please return to the emergency department if you experience worsening nausea, worsening vomiting, worsening headache, worsening pain of your right arm, difficulty walking, visual changes, chest pain, shortness of breath, difficulty walking, dizziness, lightheadedness, or any other new/concerning/worsening symptoms. Prescriptions: No Action cholecalciferol (vitamin D3) 25 mcg (1,000 unit) capsule 25 mcg PO DAILY Qty: 90 2RF erythromycin 5 mg/gram (0.5 %) ointment 0.5 inch ophthalmic (eye) TID Qty: 1 0RF dicyclomine 20 mg tablet 20 mg PO QID PRN (Reason: for abdominal pain) Qty: 90 1RF loratadine 10 mg tablet 10 mg PO BID 90 Days Qty: 180 0RF famotidine 40 mg tablet 40 mg PO BEDTIME Qty: 90 1RF nortriptyline 25 mg capsule 25 mg PO BEDTIME Qty: 90 0RF escitalopram oxalate 10 mg tablet 10 mg PO DAILY 90 Days Qty: 90 1RF gentamicin 0.3 % drops 1 drp ophthalmic (eye) Q4H 5 Days Qty: 5 0RF sulfur-witch trinity leaf 150 mg tablet PO Mirena 20 mcg/24 hours (8 yrs) 52 mg intrauterine device 20 device intrauterine DAILY ascorbic acid (vitamin C) 1,000 mg tablet 1,000 mg PO DAILY gabapentin 100 mg capsule 100 mg PO TID ondansetron HCl 4 mg tablet PO sumatriptan succinate 100 mg tablet 100 mg PO DIRECTED pantoprazole 40 mg tablet,delayed release (DR/EC) 40 mg PO DAILY peg-electrolyte soln 420 gram recon soln 240 ml PO Q10M Qty: 2000 0RF Rx Instructions: until fecal effluent is clear; do not exceed a total volume of 2,000 mL for capsule Print Language: [place]
[2024-09-30 18:32] LABS: MANUAL DIFF FLAG NO
[2024-09-30 18:34] LABS: Hematocrit 37.6 % (37.0-47.0); Hemoglobin 13.1 g/dl (12.0-16.0); Imm Gran Abs Auto 0.03 X10*3/uL (0.00-0.03); Imm Gran Pct Auto 0.2 % (0.0-0.4); Lymphocytes Absolute Auto 4.5 X10*3/uL (1.2-4.9); Mean Corpuscular HGB Conc 34.8 g/dl (31.0-35.0); Mean Corpuscular Hemoglobin 33.1 pg (27.0-33.0); Mean Corpuscular Volume 94.9 fL (80.0-98.0); NRBC Abs Auto 0.000 X10*3/uL (0.0-0.012); NRBC Pct Auto 0.0 /100WBC (0.0-0.2); Platelet Count 297 X10*3/uL (160-400); Red Blood Count 3.96 X10*6/uL (4.20-5.50); White Blood Count 12.8 X10*3/uL (4.8-10.8)
[2024-09-30 18:49] LABS: Alanine Aminotransferase < 6 U/L (0-31); Albumin Level 4.7 g/dL (3.5-5.0); Alkaline Phosphatase 78 U/L (39-117); Anion Gap 16 (12-20); Aspartate Amino Transferase 23 U/L (5-31); Blood Urea Nitrogen 9 mg/dL (9-16); Calcium 9.0 mg/dL (8.4-10.2); Carbon Dioxide 20 mmol/L (22-29); Chloride 108 mmol/L (96-108); Creatinine Clr Calc Pharmacy 105.4; Estimated Glomerular Filt Rate > 60; Magnesium 2.0 mg/dL (1.6-2.6); Potassium 3.8 mmol/L (3.3-5.1); Sodium 140 mmol/L (135-145); Total Protein 7.8 g/dL (6.5-8.0)
[2024-09-30 19:11] LABS: Resp Syncy Virus RNA Qual PCR NEGATIVE (Negative); SARS COV2 PCR INHOUSE NEGATIVE (Negative)
--- NOTE | 2024-09-30 19:27 | ECG_ITS ---
Test Reason : WEAKNESS Blood Pressure : */* mmHG Vent. Rate : 64 BPM Atrial Rate : 64 BPM P-R Int : 130 ms QRS Dur : 82 ms QT Int : 392 ms P-R-T Axes : 44 41 42 degrees QTcB Int : 404 ms Normal sinus rhythm Normal ECG When compared with ECG of 24-Jun-2022 14:02, No significant change was found Referred By: Ann-Marie Vidal Electronically Signed By: FIDELIA FLANAGAN MD
[2024-09-30 19:45] LABS: Appearance Urine Clear; Glucose Urine UA Negative (Negative); PH 5.0 (5.0-9.0); Specific Gravity - Urine 1.025 (1.005-1.025)
[2024-09-30 19:47] LABS: Troponin-I High Sensitivity < 2.7 ng/L (<3.5-17.0)
[2024-09-30 21:09] VITALS: BP 128/66; PULSE 75; RESP 16; TEMP 36.2; O2SAT 98
[2024-09-30 21:24] VITALS: BP 128/66; PULSE 75; RESP 16; TEMP 36.2; O2SAT 98
== END 2024-09-30 21:25 | disposition home or self-care (01) ==
PROVIDERS: Registered Nurse Emergency; Emergency Provider Emergency Medicine; PCP Internal Medicine
DX: G43.909 Migraine, unspecified, not intractable, without status migrainosus (principal); R11.2 Nausea with vomiting, unspecified; J45.909 Unspecified asthma, uncomplicated; Z03.818 Encounter for observation for suspected exposure to other biological agents ruled out
CPT/HCPCS: 70450; 80053; 81003; 83735; 84484; 85025; 87637; 93005; 96361; 96374; 96375; 99284; 99285; J1200; J1885; J2405; J2470; J2765

== ENCOUNTER → 2024-09-30 17:51 | Outpatient (BNV) | payer SELFPAY | PROVIDERS: Emergency Provider Emergency Medicine; PCP Internal Medicine; Visit Provider Radiology Diagnostic Radiology | DX: R51.9 Headache, unspecified (principal) | CPT/HCPCS: 70450 ==

== ENCOUNTER → 2024-09-30 19:27 | Outpatient (BNV) | payer OTHER, SELFPAY | PROVIDERS: Emergency Provider Emergency Medicine; PCP Internal Medicine; Visit Provider Internal Medicine Cardiovascular Disease | DX: R53.1 Weakness (principal) | CPT/HCPCS: 93010 ==

== ENCOUNTER 2025-01-24 17:25 | Emergency (ER) | payer SELFPAY ==
[2025-01-24 17:32] VITALS: BP 145/85; PULSE 105; RESP 18; TEMP 36.7; O2SAT 97; BMI 34.7
--- NOTE | 2025-01-24 17:37 | ED.GENADULT ---
HPI - General Adult General Chief complaint: Skin/Abscess/Foreign Body Stated complaint: Cyst/boil right thigh Time Seen by Provider: 01/24/25 20:10 Source: patient Limitations: no limitations History of Present Illness ED Provider: Jacque Joel PA-C HPI narrative: 44-year-old female presents with right inner thigh infection x4 days. Patient states she developed a tender swelling that resembled a blemish, it has since increased in size, overlying warmth, erythema, and significant tenderness to palpation. Denies active drainage from the site, no fever. Related Data Home Medications ?Medication ?Instructions ?Recorded ?Confirmed sulfur-witch trinity leaf 150 mg tab PO 11/26/20 03/29/23 tablet levonorgestrel (Mirena) 20 device intrauterine DAILY 03/28/22 03/29/23 gabapentin 100 mg capsule 100 mg PO TID 11/21/22 03/29/23 ondansetron HCl 4 mg tablet mg PO 11/21/22 03/29/23 sumatriptan succinate 100 mg tablet 100 mg PO DIRECTED 11/21/22 03/29/23 ascorbic acid (vitamin C) 1,000 mg 1,000 mg PO DAILY 05/19/23 tablet pantoprazole 40 mg tablet,delayed 40 mg PO DAILY 09/15/23 release Previous Rx's ?Medication ?Instructions ?Recorded cholecalciferol (vitamin D3) 25 25 mcg PO DAILY #90 caps 07/26/22 mcg (1,000 unit) capsule gentamicin 0.3 % eye drops 1 drp ophthalmic (eye) Q4H 5 days 05/08/23 #5 mL erythromycin 5 mg/gram (0.5 %) eye 0.5 inch ophthalmic (eye) TID #1 g 05/11/23 ointment dicyclomine 20 mg tablet 20 mg PO QID PRN for abdominal 05/24/23 pain #90 tabs peg-electrolyte solution 420 gram 240 ml PO Q10M #2,000 mL 09/15/23 oral solution loratadine 10 mg tablet 10 mg PO BID 90 days #180 tabs 01/09/24 famotidine 40 mg tablet 40 mg PO BEDTIME #90 tabs 07/03/24 escitalopram oxalate 10 mg tablet 10 mg PO DAILY 90 days #90 tabs 09/10/24 nortriptyline 25 mg capsule 25 mg PO BEDTIME #90 caps 01/05/25 doxycycline hyclate 100 mg capsule 100 mg PO BID #13 caps 01/24/25 Allergies Allergy/AdvReac Type Severity Reaction Status Date / Time amoxicillin (Amoxicillin) Allergy Severe anaphylaxis Verified 01/24/25 17:34 Penicillins Allergy Severe anaphylaxis Verified 01/24/25 17:34 Sulfa (Sulfonamide Allergy Severe Hives Verified 01/24/25 17:34 Antibiotics) codeine (Codeine) Allergy Intermediate rash Verified 01/24/25 17:34 almond Allergy Unknown Unknown Verified 01/24/25 17:34 cantaloupe Allergy Unknown Unknown Verified 01/24/25 17:34 corn Allergy Unknown Unknown Verified 01/24/25 17:34 hazelnut Allergy Unknown Unknown Verified 01/24/25 17:34 peanut Allergy Unknown Unknown Verified 01/24/25 17:34 pear Allergy Unknown Unknown Verified 01/24/25 17:34 pineapple Allergy Unknown Unknown Verified 01/24/25 17:34 soy Allergy Unknown Unknown Verified 01/24/25 17:34 walnut Allergy Unknown Unknown Verified 01/24/25 17:34 Review of Systems Review of Systems: Yes all other systems are reviewed and are negative Constitutional: Constitutional: Denies fatigue and Denies fever(s) Musculoskeletal: Musculoskeletal: Denies arthralgias and Denies joint swelling Integumentary/Breasts: Skin/Breast: Reports erythema, Reports skin swelling, Denies sores and Denies wounds Endocrine: Endocrine: Denies fatigue PMFSH Past Medical History Attestation statement: The following information was validated with the patient. Medical History Abnormal Pap smear of cervix New daily persistent headache Physical exam Rash COVID-19 (~03/23/20) Obese External hemorrhoids with complication Irritable bowel syndrome with diarrhea Traumatic coccydynia Coccydynia PONV (postoperative nausea and vomiting) Back pain Peptic ulcer Asthma Surgical History History of colonoscopy [place] teeth removed H/O: hemorrhoidectomy Hx of excision of mass Family History Family History Father Alive and well Substance use disorder Mother Family history of high blood pressure History of hip replacement Brain aneurysm Social History Social History Household Members: Children and None Housing: House Alcohol intake: current Alcohol intake frequency: holidays/special occasions only Alcohol type: beer and hard liquor Patient Tobacco Use Status: Never used Tobacco e-Cigarette/Vaping Use: Never Used Second Hand Smoke Exposure: No Substance Use Type: Marijuana Advance Directives: No Advance Directives Information Provided: No service: No Current occupational status: employed 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 [employer] Current occupational exposures/hazards: No Cognitive needs: No Hearing needs: No Vision needs: No Physical Exam ED Vital Signs: Vital Signs - 24 hr 01/24/25 17:32 01/24/25 21:42 01/24/25 22:34 Temperature 98.1 F Pulse Rate 105 H Respiratory Rate 18 18 18 Blood Pressure 145/85 H Pulse Oximetry 97 Oxygen Delivery Method Room Air 01/24/25 22:35 01/24/25 22:56 Temperature 98.2 F 98.2 F Pulse Rate 80 80 Respiratory Rate 16 16 Blood Pressure 136/82 136/82 Pulse Oximetry 96 96 Oxygen Delivery Method Room Air Room Air BMI result Body Mass Index 34.7 Const Other: Alert well-appearing, anxious Orientation/consciousness: patient oriented x3 Resp Effort & Inspection: normal respiratory effort Cardio Other: Normal peripheral perfusion Skin Other: Warm dry no rash Neuro General: patient oriented x3, gait normal, no focal motor deficits and CN's II-XI intact bilaterally Extrem Other: Tender, indurated region to right inner thigh with the overlying warmth and erythema, which is raised and fluctuant centrally, no active drainage from the site Psych Other: Cooperative Course Course Course Narrative: RME: 44-year-old female presents to ED for right inner thigh abscess that is tender on palpation. Patient to be evaluated in ED Medications Administered Discontinued Medications Generic Name Dose Route Start Last Admin Trade Name Freq PRN Reason Stop Dose Admin Doxycycline Monohydrate 100 mg 01/24/25 22:18 01/24/25 22:34 Doxycycline Monohydrate 100 Mg Capsule PO 01/24/25 22:19 100 mg ONCE ONE Administration Lidocaine/Epinephrine 10 ml 01/24/25 20:44 01/24/25 21:46 Lidocaine Hcl 1%/Epi 1:100,000 10 Ml Vial INFILTRATI 01/24/25 20:45 Not Given ONCE ONE Midazolam HCl 2 mg 01/24/25 20:44 01/24/25 21:43 Midazolam Hcl 2 Mg/2 Ml Vial IVPUSH 01/24/25 20:45 2 mg ONCE ONE Administration Morphine Sulfate 4 mg 01/24/25 20:44 01/24/25 21:42 Morphine Sulfate 4 Mg/Ml Cartridge IVPUSH 01/24/25 20:45 4 mg ONCE ONE Administration Protocol Lidocaine/Epinephrine/Tetracaine 3 ml 01/24/25 20:44 01/24/25 21:43 Lidocaine/Racepinep/Tetracaine 3 Ml Gel.Pf.[place] TOPICAL 01/24/25 20:45 Not Given ONCE ONE Procedures Abscess I/D Site: lower extremity Side (if applicable): right Sedation/analgesia: midazolam and other (Morphine) Local Anesthetic: lidocaine 1%, with epi and other anesthetic (let) Amount of anesthesia used (mL): 2 Technique: incised with blade and ultrasound guided Amount of fluid expressed (mL): 5 Sent for culture/gram staining?: No Irrigation: Yes Packing used?: iodoform Medical Decision Making Medical Decision Making MDM Narrative: 44-year-old female presents with right inner thigh infection x4 days. Patient states she developed a tender swelling that resembled a blemish, it has since increased in size, overlying warmth, erythema, and significant tenderness to palpation. Denies active drainage from the site, no fever. No relevant chronic issues History: Per patient I have considered the following differential diagnoses: Cellulitis, purulent cellulitis, abscess, folliculitis, cyst Plan: Patient has a simple abscess, I will be drained at bedside. Given the overlying cellulitis we will cover with antibiotics. No indication for imaging Differential Diagnosis Differential Diagnoses: The differential diagnosis associated with the presentation includes See MDM Admission/Observation Consideration of admission/observation: Escalation of care including admission/observation considered Not applicable Discharge Plan Discharge Clinical Impression: Abscess of right thigh Patient Disposition: Home, Self-Care Instructions: Abscess (ED), Incision and Drainage (ED) Additional Instructions: You had an abscess that was drained at bedside. See home care instructions. There is a small drain within the wound, in 2 days, run hot water over the site, then remove the drain. Take the doxycycline as directed. Follow up with primary care as needed. Prescriptions: New doxycycline hyclate 100 mg capsule 100 mg PO BID Qty: 13 0RF No Action cholecalciferol (vitamin D3) 25 mcg (1,000 unit) capsule 25 mcg PO DAILY Qty: 90 2RF erythromycin 5 mg/gram (0.5 %) ointment 0.5 inch ophthalmic (eye) TID Qty: 1 0RF dicyclomine 20 mg tablet 20 mg PO QID PRN (Reason: for abdominal pain) Qty: 90 1RF loratadine 10 mg tablet 10 mg PO BID 90 Days Qty: 180 0RF famotidine 40 mg tablet 40 mg PO BEDTIME Qty: 90 1RF escitalopram oxalate 10 mg tablet 10 mg PO DAILY 90 Days Qty: 90 1RF nortriptyline 25 mg capsule 25 mg PO BEDTIME Qty: 90 0RF gentamicin 0.3 % drops 1 drp ophthalmic (eye) Q4H 5 Days Qty: 5 0RF sulfur-witch trinity leaf 150 mg tablet PO Mirena 20 mcg/24 hours (8 yrs) 52 mg intrauterine device 20 device intrauterine DAILY ascorbic acid (vitamin C) 1,000 mg tablet 1,000 mg PO DAILY gabapentin 100 mg capsule 100 mg PO TID ondansetron HCl 4 mg tablet PO sumatriptan succinate 100 mg tablet 100 mg PO DIRECTED pantoprazole 40 mg tablet,delayed release (DR/EC) 40 mg PO DAILY peg-electrolyte soln 420 gram recon soln 240 ml PO Q10M Qty: 2000 0RF Rx Instructions: until fecal effluent is clear; do not exceed a total volume of 2,000 mL for capsule Interventions: ED Discharge Assessment Last Done: 01/24/25 22:56 Discharge Date/Time: 01/24/25 23:09 Print Language: [place]
[2025-01-24 21:42] VITALS: RESP 18
[2025-01-24 22:34] VITALS: RESP 18
[2025-01-24 22:35] VITALS: BP 136/82; PULSE 80; RESP 16; TEMP 36.8; O2SAT 96
[2025-01-24 22:56] VITALS: BP 136/82; PULSE 80; RESP 16; TEMP 36.8; O2SAT 96
== END 2025-01-24 23:09 | disposition home or self-care (01) ==
PROVIDERS: Emergency Provider Emergency Medicine; PCP Internal Medicine
DX: L02.415 Cutaneous abscess of right lower limb (principal); M79.604 Pain in right leg; Z79.899 Other long term (current) drug therapy
CPT/HCPCS: 10060; 96374; 96375; 99283; 99284; J2250; J2270